=== PATIENT | male | born 1955 | race Caucasian/White ===

== ENCOUNTER → 2016-12-30 | Outpatient (CLI) | payer BC ==
[~2016-12-30] MED LIST: ASPI-983 PO; ATOR80TA76 PO; CLOP75TA28 PO; MELO-170 PO; METO-270 PO; RT-ALBUINH IH
--- NOTE | 2017-01-01 09:52 | ECHOCARDIOGRAPHY REPORT ---
PROCEDURE PHYSICIAN: PATRICIA COLON DATE OF PROCEDURE: 12/30/2016 TWO DIMENSIONAL ECHOCARDIOGRAM REPORT PRIMARY PHYSICIAN: Dr. Jon Mon OTHER PHYSICIAN: REFERRING PHYSICIAN: ORDERING PHYSICIAN: ATTENDING PHYSICIAN: Dr. Hernesto Colon FAMILY PHYSICIAN: READING PHYSICIAN: INDICATION FOR THE PROCEDURE: Cardiomyopathy. MEASUREMENTS DERIVED VALUES LV DIAMETER (LAX) NORMALS NORMALS Diastolic (3.6-5.2) Eject. Fract. (60%+/-6%) Systolic (2.3-3.9) Diastolic Vol. % Shortening (0.22-0.42) Systolic Vol. Aortic Root IVS THICKNESS Diastolic (0.6-1.1) LVPW THICKNESS Diastolic (0.6-1.1) LA DIAMETER Systolic (2.1-3.7) FINDINGS: 1. This is a technically difficult study. 2. Sinus rhythm. 3. Left atrial dimensions are normal. 4. Left ventricular systolic function is preserved. LV EF is 50 to 55%. Moderate concentric LVH is noted with diastolic intraventricular septal diameter 1.6 cm. 5. There are no significant wall motion abnormalities. 6. Right heart size and function is normal. 7. There is no evidence of pericardial effusion. 8. Complete diastolic evaluation was not performed. 9. IVC is normal with IVC diameter 1.5 cm. VALVULAR STRUCTURE OF THE HEART: There is mild tricuspid regurgitation with RVSP of 7 mmHg. There is mild mitral regurgitation with trace aortic insufficiency. The aortic valve is mildly thickened; however, there is no significant aortic stenosis. CONCLUSION: 1. LV and RV size and function are within normal limits. 2. LVEF is 50%. 3. There is no significant valvular heart disease. 4. There is moderate concentric LVH. 5. Pulmonary pressures are normal. 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
== END ==
LOC: CARD 10:51
PROVIDERS: ATTEND Internal Medicine Interventional Cardiology
DX: J44.9 Chronic obstructive pulmonary disease, unspecified (principal); I25.5 Ischemic cardiomyopathy; I21.3 ST elevation (STEMI) myocardial infarction of unspecified site; Z72.0 Tobacco use
CPT/HCPCS: 93306

== ENCOUNTER → 2018-06-15 | Outpatient (CLI) | payer MEDICARE, OTHER ==
[~2018-06-15] MED LIST changes: -METO-270 PO; +METO-387 PO
[2018-06-15 11:53] LABS: BUN/CREATININE RATIO 18; CREATININE SERUM 0.84 MG/DL (0.60-1.30); GFR ESTIMATED > 60
[2018-06-15 11:55] LABS: ABG BASE EXCESS 3.3 MMOL/L (-2.5-2.5); ABG OXYGEN SATURATION 94 % (94-100); ABG PCO2 42 MMHG (35-45); ABG PH 7.42 (7.37-7.43); ABG PO2 66 MMHG (79-93)
[2018-06-15 11:56] LABS: ALLENS TEST POSITIVE; PATIENT TEMP 96.8; VENTILATOR NO
[2018-06-16 04:06] LABS: ALTERNARIA MOLD RAST <0.35 kU/L (<0.35); RAGWEED RAST 1.94 kU/L (0.00-0.34)
== END ==
LOC: RT 10:47
PROVIDERS: ATTEND Nurse Practitioner Family
DX: J30.2 Other seasonal allergic rhinitis (principal); J44.9 Chronic obstructive pulmonary disease, unspecified; R06.00 Dyspnea, unspecified; M79.89 Other specified soft tissue disorders; R09.02 Hypoxemia; R53.83 Other fatigue; Z72.0 Tobacco use
CPT/HCPCS: 36415; 36600; 82565; 82785; 82805; 84520; 86003

== ENCOUNTER → 2018-07-13 | Outpatient (CLI) | payer MEDICARE, OTHER ==
[~2018-07-13] MED LIST changes: +ALBU0.63 IH; +ATOR40TA70 PO; +CETI10TA17 PO; +FLUT1BLS3 IH; +FURO-124 PO; +IOHEXOL 350 MG/ML 150 ML (OMNIPAQUE 350) VIAL IV ONE; +LISI-556 PO; +METO-370 PO; +NS 250 ML (IVPB) BAG IV ONE; +POTA10TA10 PO
[2018-07-13 08:37] LABS: BUN/CREATININE RATIO 18; CREATININE SERUM 0.93 MG/DL (0.60-1.30); GFR ESTIMATED > 60
--- NOTE | 2018-07-13 09:54 | Diagnostic Imaging Report ---
PROCEDURE: CT angiography of the chest with contrast. TECHNIQUE: Multiple contiguous axial images were obtained through the chest after uneventful bolus administration of intravenous contrast. 2D reconstructed CTA MIP acquisitions were also performed. INDICATION: COPD, leg swelling, and shortness of breath. COMPARISON: No prior studies are available for comparison. FINDINGS: Evaluation of the pulmonary arterial system is without evidence of thromboembolism. No filling defects are seen within central, lobar, or segmental branches. The thoracic aorta is of normal caliber. No dissection is seen. No pericardial or pleural fluid is identified. No axillary lymphadenopathy is seen. There are some mildly prominent lymph nodes in the mediastinum. An AP window node measures 18 mm x 10 mm. A precarinal node measures 14 mm x 15 mm. Mildly prominent lymph nodes in the hong bilaterally are noted. Parenchymal evaluation does show emphysematous changes throughout both lungs with hyperinflation. There is a spiculated masslike density in the left lung apex extending to the lateral pleural surface. There is some associated pleural thickening at this location. This spiculated density measures approximately 5 cm transverse x 2.9 cm AP. There is some associated interstitial change in a subpleural location more inferiorly in the left upper lobe. No other parenchymal mass is identified. No underlying bony destructive changes are seen. The upper abdomen is without evidence of an adrenal mass. There is a low density in the upper pole of the left kidney, suggestive of a cyst. IMPRESSION: 1. No evidence of pulmonary embolism or thoracic aortic dissection. 2. Spiculated left apical mass, suspicious for neoplasm. There are also mildly prominent lymph nodes in the mediastinum and hong. Metastatic disease cannot be entirely excluded. Further evaluation with a PET/CT is recommended. Dictated by: Dictated on workstation # [id number]
[2018-07-14 03:56] LABS: ALTERNARIA MOLD RAST <0.35 kU/L (<0.35); RAGWEED RAST 1.75 kU/L (0.00-0.34)
== END ==
LOC: RAD 08:03
PROVIDERS: ATTEND Nurse Practitioner Family
DX: J44.9 Chronic obstructive pulmonary disease, unspecified (principal); M79.89 Other specified soft tissue disorders; J30.2 Other seasonal allergic rhinitis; Z72.0 Tobacco use
CPT/HCPCS: 36415; 71275; 82565; 82785; 84520; 86003

== ENCOUNTER 2018-07-14 06:43 | Outpatient (CLI) | payer MEDICARE, OTHER ==
[~2018-07-14] VITALS: Ht 185.4 cm; Wt 83.0 kg
[~2018-07-14 06:43] MED LIST changes: -ALBU0.63 IH; -ATOR40TA70 PO; -CETI10TA17 PO; -FLUT1BLS3 IH; -FURO-124 PO; -LISI-556 PO; -METO-370 PO; -POTA10TA10 PO
[2018-07-14] MEDS ORDERED: LISI-556 PO (12:50)
[2018-07-14] MEDS ORDERED: ALBU0.63 IH (12:50)
[2018-07-14] MEDS ORDERED: METO-370 PO (12:50)
[2018-07-14] MEDS ORDERED: POTA10TA10 PO (12:50)
[2018-07-14] MEDS ORDERED: FURO-124 PO (12:50)
[2018-07-14] MEDS ORDERED: CETI10TA17 PO (12:50)
[2018-07-14] MEDS ORDERED: FLUT1BLS3 IH (12:50)
[2018-07-14] MEDS ORDERED: ATOR40TA70 PO (12:50)
== END 2018-07-14 12:51 | disposition home or self-care (01) ==
LOC: PREOP 06:43
PROVIDERS: ATTEND Internal Medicine Critical Care Medicine
DX: Z01.818 Encounter for other preprocedural examination (principal)

== ENCOUNTER → 2018-07-14 | Outpatient (CLI) | payer MEDICARE, OTHER ==
[~2018-07-14] MED LIST changes: -IOHEXOL 350 MG/ML 150 ML (OMNIPAQUE 350) VIAL IV ONE; -NS 250 ML (IVPB) BAG IV ONE
--- NOTE | 2018-07-14 14:38 | Diagnostic Imaging Report ---
INDICATION: Left upper lobe mass. TECHNIQUE: Serum blood glucose level at time of injection was 94 mg/dL. Patient was administered 11.3 mCi F-18 FDG intravenously in the right antecubital location and PET imaging from the top of the skull to the mid thighs was performed. In addition, noncontrast CT was performed for attenuation correction and anatomic correlation. COMPARISON: Comparison is made with recent CT chest from 07/13/2018. No prior PET studies available for comparison. FINDINGS: There is symmetric activity throughout the brain. Soft tissues of the neck are unremarkable. There is a intensely hypermetabolic mass involving the left upper lobe corresponding to the spiculated mass noted on recent CT. SUV max is 12. There appears to be adjacent pleural thickening adjacent to the mass and slightly inferior to the mass in the lateral chest wall pleura which also shows some hypermetabolism with SUV max of approximately 5. Slightly hypermetabolic nodes in the left hilum are seen with SUV max approximately 4. Intermediate level lymph node in the right hilum demonstrates SUV max of 2.5. Slightly hypermetabolic nodes in the AP window are also noted, showing greater activity than background mediastinal structures, SUV max of 2.5-3. Normal physiologic activity within the abdomen and pelvis is seen. No other regions of hypermetabolism are identified. IMPRESSION: Hypermetabolic mass in the left upper lobe with adjacent pleural thickening and pleural hypermetabolism. Features are suggestive of a primary lung neoplasm with perhaps pleural involvement. There is also lower level activity within bilateral hilar and mediastinal lymph nodes, as described and suspicious for metastatic involvement. No other foci of hypermetabolism are seen. Dictated by: Dictated on workstation # [id number]
== END ==
LOC: RAD 10:01
PROVIDERS: ATTEND Internal Medicine Critical Care Medicine
DX: R91.8 Other nonspecific abnormal finding of lung field (principal); R94.8 Abnormal results of function studies of other organs and systems; R59.0 Localized enlarged lymph nodes

== ENCOUNTER 2018-07-15 06:50 | Day surgery (SDC) | payer MEDICARE, OTHER ==
[~2018-07-15] VITALS: Ht 185.4 cm; Wt 83.0 kg
[~2018-07-15 06:50] MED LIST changes: +ALBU0.63 IH; +ATOR40TA70 PO; +CETI10TA17 PO; +FLUT1BLS3 IH; +FURO-124 PO; +LISI-556 PO; +METO-370 PO; +POTA10TA10 PO
[2018-07-15] MEDS ORDERED: LIDOCAINE PF 1% 5 ML (XYLOCAINE) AMP INJ ONE (06:51)
[2018-07-15] MEDS ORDERED: LIDOCAINE PF 2% 5 ML (XYLOCAINE) VIAL INJ ONE (06:51)
[2018-07-15] MEDS ORDERED: LACTATED RINGERS 1,000 ML IV STA (06:53)
--- OUTSIDE RECORDS SUMMARY | 2018-07-15 06:56 | XMS REPORT ---
Author Author ALIRIO COELLO [facility] Address [address] [place], [place] [id number] Care Team Providers Care Stock Puller Name Role Phone ALIRIO COELLO PCP ALIRIO COELLO PreferredProvider Allergies and Adverse Reactions Not available. Plan of Treatment Planned Activity Comments Planned Date Planned Time Plan/Goal Injection,Subcutaneous/Intramuscul, R[facility] Medicare 01/26/2018 12:00 AM Medications Active Name Start Date Estimated Completion Date SIG Comments aspirin 81 mg oral tablet,chewable chew 1 tablet (81 mg) by oral route once daily atorvastatin 80 mg oral tablet take 1 tablet (80 mg) by oral route once daily at bedtime clopidogrel 75 mg oral tablet take 1 tablet (75 mg) by oral route once daily metoprolol succinate 25 mg oral tablet extended release 24 hr take 1 tablet (25 mg) by oral route once daily albuterol sulfate oral meloxicam 7.5 mg oral tablet Symbicort 160-4.5 mcg/actuation inhalation HFA aerosol inhaler 11/22/2016 inhale 2 puffs by inhalation route 2 times per day in the morning and evening Medrol (Vel) 4 mg oral tablets,dose pack 12/11/2017 take as directed for 5 days fluticasone 50 mcg/actuation nasal spray,suspension 01/26/2018 USE ONE SPRAY IN EACH NOSTRIL TWICE DAILY Bevespi Aerosphere 9-4.8 mcg inhalation HFA aerosol inhaler 01/27/2018 inhale 2 puffs by inhalation route 2 times per day in the morning and evening Name Start Date Expiration Date SIG Comments Symbicort 160-4.5 mcg/actuation inhalation HFA aerosol inhaler 10/08/201710/08 INHALE TWO PUFFS BY MOUTH TWICE DAILY (MORNING AND EVENING) ProAir HFA 90 mcg/actuation inhalation HFA aerosol inhaler 12/01/2017 12/01/2017 INHALE ONE PUFF BY MOUTH EVERY 6 HOURS NEEDED Problem List Description Status Onset Smoker Active 10/07/2016 Hypercholesterolemia Active 10/07/2016 CAD S/P percutaneous coronary angioplasty Active 10/07/2016 Chronic obstructive pulmonary disease, unspecified COPD type Active 2016 History of MS (myocardial infarction) Active 10/07/2016 Seasonal allergic rhinitis, unspecified allergic rhinitis trigger Active Vital Signs Date Time BP-Sys(mm[Hg] BP-Paradise(mm[Hg]) HR(bpm) RR(rpm) Temp WT HT HC BMI BSA BMI Percentile O2 Sat(%) 01/26/2018 10:58:00 AM 130 mmHg 72 mmHg 82 bpm 20 rpm 96 F 181 lbs 73 in 23.8798 kg/m 2.0564 m 98 % 12/11/2017 2:40:00 PM 146 mmHg 80 mmHg 86 bpm 18 rpm 98.1 F 181 lbs 73 in 23.88 kg/m2 2.06 m2 94 % 10/23/2017 1:44:00 PM 148 mmHg 82 mmHg 82 bpm 18 rpm 96.9 F 178 lbs 73 in 23.484 kg/m 2.0393 m 98 % 11/28/2016 12:50:00 PM 118 mmHg 65 mmHg 78 bpm 18 rpm 96.9 F 177 lbs 74 in 22.73 kg/m2 2.05 m2 98 % 10/01/2016 11:58:00 AM 110 mmHg 66 mmHg 88 bpm 16 rpm 97.6 F 181 lbs 74 in 23.2388 kg/m 2.0704 m 98 % Social History Name Description Comments smoking 1/2 pack per day Alcohol Current some day Uses seatbelts yes Exercises regularly no History of Procedures Date Ordered Description Order Status 11/28/2016 12:00 AM COMPLETE CBC W/AUTO DIFF WBC Returned 11/28/2016 12:00 AM COMPREHEN METABOLIC PANEL Returned 11/28/2016 12:00 AM LIPID PANEL Returned 11/28/2016 12:00 AM Prostate Cancer Screening Returned 11/28/2016 12:00 AM ROUTINE VENIPUNCTURE Reviewed 11/28/2016 12:00 AM Decadron 8mg Injection Reviewed 11/28/2016 12:00 AM Depo-Medrol 80mg Injection Reviewed 11/28/2016 12:00 AM THER/PROPH/DIAG INJ SC/IM Reviewed 10/23/2017 12:00 AM COMPLETE CBC W/AUTO DIFF WBC Returned 10/23/2017 12:00 AM COMPREHEN METABOLIC PANEL Returned 10/23/2017 12:00 AM LIPID PANEL Returned 10/23/2017 12:00 AM ROUTINE VENIPUNCTURE Reviewed 10/23/2017 12:00 AM THER/PROPH/DIAG INJ SC/IM Reviewed 10/23/2017 12:00 AM Decadron 8mg Injection Reviewed 10/23/2017 12:00 AM Depo-Medrol 80mg Injection Reviewed 10/23/2017 12:00 AM Rocephin 1 gram Injection Reviewed 12/11/2017 12:00 AM THER/PROPH/DIAG INJ SC/IM Reviewed 12/11/2017 12:00 AM Decadron 8mg Injection Reviewed 12/11/2017 12:00 AM Depo-Medrol 80mg Injection Reviewed Results Summary Not available. History Of Immunizations Not available. History of Past Illness Name Date of Onset Comments Heart Attack Hay Fever Arthritis Chronic Obstructive Pulmonary Disease Emphysema Smoker 10/07/2016 Hypercholesterolemia 10/07/2016 CAD S/P percutaneous coronary angioplasty 10/07/2016 Chronic obstructive pulmonary disease, unspecified COPD type 10/07/2016 History of MS (myocardial infarction) 10/07/2016 Seasonal allergic rhinitis, unspecified allergic rhinitis trigger 12/09/2016 Chronic obstructive pulmonary disease, unspecified COPD type Oct 01 2016 11: 59AM Atherosclerotic heart disease of [place] coronary artery without angina pectoris Oct 01 2016 11:59AM Coronary angioplasty status Oct 01 2016 11:59AM Hypercholesterolemia Oct 01 2016 11:59AM Chronic Smoker Oct 01 2016 11:59AM History of MS (myocardial infarction) Oct 01 2016 11:59AM History of MS (myocardial infarction) Nov 28 2016 9:51AM Hypercholesterolemia Nov 28 2016 9:51AM Smoker Nov 28 2016 9:51AM Prostate cancer screening Nov 28 2016 9:51AM Seasonal allergic rhinitis, unspecified allergic rhinitis trigger Nov 28 2016 12:51PM Smoker Nov 28 2016 12:51PM Atherosclerotic heart disease of [place] coronary artery without angina pectoris Nov 28 2016 12:51PM Coronary angioplasty status Nov 28 2016 12:51PM Chronic obstructive pulmonary disease, unspecified COPD type Nov 28 2016 12: 51PM History of MS (myocardial infarction) Nov 28 2016 12:51PM Moderate Acute Nasal congestion with rhinorrhea Nov 28 2016 12:51PM History of MS (myocardial infarction) Oct 23 2017 9:47AM Hypercholesterolemia Oct 23 2017 9:47AM Smoker Oct 23 2017 9:47AM Purulent postnasal drainage Oct 23 2017 1:44PM Chest congestion Oct 23 2017 1:44PM Upper respiratory tract infection, unspecified type Oct 23 2017 1:44PM Sinus pressure Oct 23 2017 1:44PM Chest congestion Dec 11 2017 2:40PM Sinus pressure Dec 11 2017 2:40PM Seasonal allergic rhinitis, unspecified trigger Dec 11 2017 2:40PM Environmental and seasonal allergies Dec 11 2017 2:40PM Cough Jan 26 2018 10:58AM Purulent postnasal drainage Jan 26 2018 10:58AM Chest congestion Jan 26 2018 10:58AM Acute seasonal allergic rhinitis, unspecified trigger Jan 26 2018 10:58AM Pulmonary emphysema, unspecified emphysema type Jan 26 2018 10:58AM Payers Insurance Name Company Name Plan Name Plan Number Policy Number Policy Group Number [id number] History of Encounters Visit Date Visit Type Provider 01/26/2018 Office visit ALIRIO ZUNIGA 12/11/2017 Office visit ALIRIO ZUNIGA 10/23/2017 Office visit ALIRIO ZUNIGA 11/28/2016 Office visit ALIRIO ZUNIGA 10/01/2016 Office visit ALIRIO ZUNIGA
--- OUTSIDE RECORDS SUMMARY | 2018-07-15 06:56 | XMS REPORT ---
Author Author ALIRIO COELLO [facility] Address [address] [facility] [address] [place], [place] [id number] Care Team Providers Care Senior Web Engineer Name Role Phone ALIRIO COELLO PCP Unavailable Allergies and Adverse Reactions Not available. Plan of Treatment Planned Activity Comments Planned Date Planned Time Plan/Goal CBC with Differential 11/28/2016 12:00 AM CMP 11/28/2016 12:00 AM .Lipid Panel 11/28/2016 12:00 AM Medications Active Name Start Date [...] per day in the morning and evening ProAir HFA 90 mcg/actuation inhalation HFA aerosol inhaler 11/22/2016 inhale 1 puff (90 mcg) by inhalation route every 6 hours as needed Problem List Description Status Onset Smoker Active 10/07/2016 Hypercholesterolemia Active 10/07/2016 CAD S/P percutaneous coronary angioplasty Active 10/07/2016 Chronic obstructive pulmonary disease, unspecified COPD type Active 2016 History of MS (myocardial infarction) Active 10/07/2016 Vital Signs Date Time BP-Sys(mm[Hg] BP-Paradise(mm[Hg]) HR(bpm) RR(rpm) Temp WT HT HC BMI BSA BMI Percentile O2 Sat(%) 10/01/2016 11:58:00 AM 110 mmHg 66 mmHg 88 bpm 16 rpm 97.6 F 181 lbs 74 in 23.24 kg/m2 2.07 m2 98 % Social History Name Description Comments smoking 1/2 pack per day Alcohol Current some day Uses seatbelts yes Exercises regularly no History of Procedures Date Ordered Description Order Status 11/28/2016 12:00 AM ROUTINE VENIPUNCTURE Reviewed Results Summary Not available. History Of Immunizations Not available. History of Past Illness Name Date of Onset Comments Heart Attack Hay Fever Arthritis Chronic Obstructive Pulmonary Disease Emphysema Smoker 10/07/2016 Hypercholesterolemia 10/07/2016 CAD S/P percutaneous coronary angioplasty 10/07/2016 Chronic obstructive pulmonary disease, unspecified COPD type 10/07/2016 History of MS (myocardial infarction) 10/07/2016 Chronic obstructive pulmonary disease, unspecified COPD type Oct 01 2016 11: 59AM Atherosclerotic heart disease of [place] coronary artery without angina pectoris Oct 01 2016 11:59AM Coronary angioplasty status Oct 01 2016 11:59AM Hypercholesterolemia Oct 01 2016 11:59AM Chronic Smoker Oct 01 2016 11:59AM History of MS (myocardial infarction) Oct 01 2016 11:59AM History of MS (myocardial infarction) Nov 28 2016 9:51AM Hypercholesterolemia Nov 28 2016 9:51AM Smoker Nov 28 2016 9:51AM Prostate cancer screening Nov 28 2016 9:51AM Payers Insurance Name Company Name Plan Name Plan Number Policy Number Policy Group Number [id number] History of Encounters Visit Date Visit Type Provider 11/28/2016 Office visit ALIRIO ZUNIGA 10/01/2016 Office visit ALIRIO ZUNIGA
--- OUTSIDE RECORDS SUMMARY | 2018-07-15 06:56 | XMS REPORT ---
Author Author ALIRIO COELLO [facility] Address [address] [place], [place] [id number] Care Team Providers Care Supervisor [employer] Name Role Phone ALIRIO COELLO PCP ALIRIO COELLO PreferredProvider Allergies and Adverse Reactions Not available. Plan of Treatment Not available. Medications Active Name Start Date Estimated Completion [...] (25 mg) by oral route once daily meloxicam 7.5 mg oral tablet Symbicort 160-4.5 mcg/actuation inhalation HFA aerosol inhaler 11/22/2016 inhale 2 puffs by inhalation route 2 times per day in the morning and evening fluticasone 50 mcg/actuation nasal spray,suspension 01/26/2018 USE ONE SPRAY IN EACH NOSTRIL TWICE DAILY Bevespi Aerosphere 9-4.8 mcg inhalation HFA aerosol inhaler 01/27/2018 inhale 2 puffs by inhalation route 2 times per day in the morning and evening Medrol (Vel) 4 mg oral tablets,dose pack 02/16/2018 take as directed for 5 days furosemide 40 mg oral tablet 03/16/2018 06/14/2018 take 1 tablet (40 mg) by oral route 2 times per day for 30 days Ventolin HFA 90 mcg/actuation inhalation HFA aerosol inhaler 04/08/2018 inhale 1 - 2 puffs (90 - 180 mcg) by inhalation route every 4-6 hours as needed Singulair 10 mg oral tablet 04/13/2018 04/08/2019 take 1 tablet (10 mg) by oral route once daily in the evening for 30 days albuterol sulfate 2.5 mg /3 mL (0.083 %) inhalation solution for nebulization 04/29/2018 USE 1 VIAL IN NEBULIZER 4 TIMES DAILY DX J44.9 Bactrim DS 800-160 mg oral tablet 05/11/2018 05/21/2018 take 1 tablet by oral route 2 times a day for 10 days Name Start Date Expiration Date SIG Comments Symbicort 160-4.5 mcg/actuation inhalation HFA aerosol inhaler 10/08/201710/08 INHALE TWO PUFFS BY MOUTH TWICE DAILY (MORNING AND EVENING) ProAir HFA 90 mcg/actuation inhalation HFA aerosol inhaler 12/01/2017 12/01/2017 INHALE ONE PUFF BY MOUTH EVERY 6 HOURS NEEDED potassium chloride 10 mEq oral tablet extended release 03/29/2018 04/28/2018 take 1 tablet (10 meq) by oral route once daily with food for 30 days He is to utilize this when he takes the diuretics Discontinued Name Start Date Discontinued Date SIG Comments albuterol sulfate oral 02/25/2018 Problem List Description Status Onset Smoker Active 10/07/2016 Hypercholesterolemia Active 10/07/2016 CAD S/P percutaneous coronary angioplasty Active 10/07/2016 Chronic obstructive pulmonary disease, unspecified COPD type Active 2016 History of [place] (myocardial infarction) Active 10/07/2016 Seasonal allergic rhinitis, unspecified allergic rhinitis trigger Active Hypoxemia requiring supplemental oxygen Active 02/19/2018 Congestive heart failure, unspecified HF chronicity, unspecified heart failure type Active 03/29/2018 Vital Signs Date Time BP-Sys(mm[Hg] BP-Paradise(mm[Hg]) HR(bpm) RR(rpm) Temp WT HT HC BMI BSA BMI Percentile O2 Sat(%) 05/11/2018 3:58:00 PM 118 mmHg 70 mmHg 90 bpm 18 rpm 98.4 F 180 lbs 72 in 24.4121 kg/m 2.0366 m 94 % 04/13/2018 9:59:00 AM 118 mmHg 64 mmHg 80 bpm 18 rpm 97.4 F 180 lbs 73 in 23.75 kg/m2 2.05 m2 98 % 03/23/2018 7:59:00 AM 120 mmHg 68 mmHg 18 bpm 16 rpm 98.1 F 200 lbs 73 in 26.3865 kg/m 2.1616 m 98 % 03/16/2018 8:53:00 AM 142 mmHg 76 mmHg 86 bpm 20 rpm 98.4 F 186 lbs 72 in 25.23 kg/m2 2.07 m2 92 % 02/18/2018 8:26:00 AM 130 mmHg 84 mmHg 78 bpm 18 rpm 98.1 F 191 lbs 72 in 25.904 kg/m 2.0979 m 94 % 02/16/2018 8:50:00 AM 190 mmHg 100 mmHg 114 bpm 22 rpm 98.4 F 160 lbs 72 in 21.70 kg/m2 1.92 m2 84 % 01/26/2018 10:58:00 AM 130 mmHg 72 mmHg [...] 12/11/2017 12:00 AM Depo-Medrol 80mg Injection Reviewed 01/26/2018 12:00 AM THERAPEUTIC PROPHYLACTIC/DX INJECTION SUBQ/IM Reviewed 01/26/2018 12:00 AM Decadron 8mg Injection, [facility] Medicare Reviewed 01/26/2018 12:00 AM Depo-Medrol 80mg Injection, [facility] Medicare Reviewed 02/16/2018 12:00 AM THER/PROPH/DIAG INJ SC/IM Reviewed 02/16/2018 12:00 AM Decadron 8mg Injection Reviewed 02/18/2018 12:00 AM TTE W/DOPPLER COMPLETE Returned 03/23/2018 12:00 AM COMPLETE CBC W/AUTO DIFF WBC Returned 03/23/2018 12:00 AM COMPREHEN METABOLIC PANEL Returned 03/23/2018 12:00 AM LIPID PANEL Returned 03/23/2018 12:00 AM Prostate Cancer Screening Returned 03/23/2018 12:00 AM ROUTINE VENIPUNCTURE Reviewed 03/16/2018 12:00 AM THER/PROPH/DIAG INJ SC/IM Reviewed 03/16/2018 12:00 AM Decadron 8mg Injection Reviewed 03/16/2018 12:00 AM Depo-Medrol 80mg Injection Reviewed 03/16/2018 12:00 AM Lasix, Up to 20 Mg [facility]#[id number] Reviewed Results Summary Not available. History Of Immunizations Not available. History of Past Illness Name Date of Onset Comments Heart Attack Hay Fever Arthritis Chronic Obstructive Pulmonary Disease Emphysema Smoker 10/07/2016 Hypercholesterolemia 10/07/2016 CAD S/P percutaneous coronary angioplasty 10/07/2016 Chronic obstructive pulmonary disease, unspecified COPD type 10/07/2016 History of [place] (myocardial infarction) 10/07/2016 Seasonal allergic rhinitis, unspecified allergic rhinitis trigger 12/09/2016 Hypoxemia requiring supplemental oxygen 02/19/2018 Congestive heart failure, unspecified HF chronicity, unspecified heart failure type 03/29/2018 Chronic obstructive pulmonary disease, unspecified COPD type Oct 01 2016 11: 59AM Atherosclerotic heart disease of [place] coronary artery without angina pectoris Oct 01 2016 11:59AM Coronary angioplasty status Oct 01 2016 11:59AM Hypercholesterolemia Oct 01 2016 11:59AM Chronic Smoker Oct 01 2016 11:59AM History of [place] (myocardial infarction) Oct 01 2016 11:59AM History of [place] (myocardial infarction) Nov 28 2016 9:51AM Hypercholesterolemia Nov 28 2016 9:51AM Smoker Nov 28 2016 9:51AM Prostate cancer screening Nov 28 2016 9:51AM Seasonal allergic rhinitis, unspecified allergic rhinitis trigger Nov 28 2016 12:51PM Smoker Nov 28 2016 12:51PM Atherosclerotic heart disease of [place] coronary artery without angina pectoris Nov 28 2016 12:51PM Coronary angioplasty status Nov 28 2016 12:51PM Chronic obstructive pulmonary disease, unspecified COPD type Nov 28 2016 12: 51PM History of [place] (myocardial infarction) Nov 28 2016 12:51PM Moderate Acute Nasal congestion with rhinorrhea Nov 28 2016 12:51PM History of [place] (myocardial infarction) Oct 23 2017 9:47AM Hypercholesterolemia [...] unspecified emphysema type Jan 26 2018 10:58AM Hypoxemia Feb 16 2018 8:51AM Dependence on supplemental oxygen Feb 16 2018 8:51AM COPD exacerbation Feb 16 2018 8:51AM History of [place] (myocardial infarction) Feb 16 2018 8:51AM Seasonal allergic rhinitis, unspecified allergic rhinitis trigger Feb 16 2018 8:51AM Smoker Feb 16 2018 8:51AM Orthopnea Feb 16 2018 8:51AM COPD (chronic obstructive pulmonary disease) Feb 18 2018 8:41AM History of [place] (myocardial infarction) Feb 18 2018 8:41AM COPD (chronic obstructive pulmonary disease) Feb 18 2018 8:26AM Chronic obstructive pulmonary disease, unspecified COPD type Feb 18 2018 8: 26AM History of [place] (myocardial infarction) Feb 18 2018 8:26AM Smoker Feb 18 2018 8:26AM Hypoxemia Feb 18 2018 8:26AM Dependence on supplemental oxygen Feb 18 2018 8:26AM Severe Acute SOB (shortness of breath) on exertion Improving Feb 18 2018 8: 26AM History of [place] (myocardial infarction) Mar 23 2018 8:28AM Hypercholesterolemia Mar 23 2018 8:28AM Smoker Mar 23 2018 8:28AM Prostate cancer screening Mar 23 2018 8:28AM Severe Acute Muscle cramps at night Mar 23 2018 8:04AM Atherosclerotic heart disease of [place] coronary artery without angina pectoris Mar 23 2018 8:04AM Coronary angioplasty status Mar 23 2018 8:04AM Chronic obstructive pulmonary disease, unspecified COPD type Mar 23 2018 8: 04AM History of [place] (myocardial infarction) Mar 23 2018 8:04AM Hypoxemia Mar 23 2018 8:04AM Dependence on supplemental oxygen Mar 23 2018 8:04AM Smoker Mar 23 2018 8:04AM Moderate Peripheral edema Stable Worsening Mar 23 2018 8:04AM Diuretics causing adverse effect in therapeutic use, initial encounter Mar 23 2018 8:04AM Severe Chronic Shortness of breath on exertion Unresponsive to treatment Mar 23 2018 8:04AM Chronic obstructive pulmonary disease, unspecified COPD type Mar 16 2018 8: 54AM Hypoxemia Mar 16 2018 8:54AM Dependence on supplemental oxygen Mar 16 2018 8:54AM Smoker Mar 16 2018 8:54AM Peripheral edema Mar 16 2018 8:54AM Congestive heart failure, unspecified HF chronicity, unspecified heart failure type Mar 16 2018 8:54AM Seasonal allergic rhinitis, unspecified trigger Apr 13 2018 10:00AM Cellulitis of external nose May 11 2018 3:59PM Payers Insurance Name Company Name Plan Name Plan Number Policy Number Policy Group Number Start Date Medicare RHC Medicare RHC [id number] N/A Medicare Part A Medicare - Lab/Xray [id number] N/A BCBS [facility] [id number] N/A History of Encounters Visit Date Visit Type Provider 05/11/2018 Office visit ALIRIO COELLO PA 04/13/2018 Office visit ALIRIO COELLO PA 03/23/2018 Office visit ALIRIO COELLO PA 03/16/2018 Office visit ALIRIO COELLO PA 02/18/2018 Office visit ALIRIO COELLO PA 02/16/2018 Office visit ALIRIO COELLO PA 01/26/2018 Office visit ALIRIO COELLO PA 12/11/2017 Office visit ALIRIO COELLO PA 10/23/2017 Office visit ALIRIO ZUNIGA 11/28/2016 Office visit ALIRIO COELLO PA 10/01/2016 Office visit ALIRIO ZUNIGA
--- OUTSIDE RECORDS SUMMARY | 2018-07-15 06:57 | XMS REPORT ---
Author Author ALIRIO COELLO [facility] Address [address] [place], [place] [id number] Care Team Providers Care Screener Perfumer Name Role Phone ALIRIO COELLO PCP ALIRIO COELLO PreferredProvider Allergies and Adverse Reactions Not available. Plan of Treatment Planned Activity Comments Planned Date Planned Time Plan/Goal ECHO 2D Complete - Adult 02/18/2018 12:00 AM Medications Active Name Start Date [...] per day in the morning and evening albuterol sulfate 2.5 mg /3 mL (0.083 %) inhalation solution for nebulization 02/16/2018 used in Small Volume Nebulizer QID PRN Medrol (Vel) 4 mg oral tablets,dose pack 02/16/2018 take as directed for 5 days Name Start Date Expiration Date SIG [...] unspecified COPD type Active 2016 History of [place] (myocardial infarction) Active 10/07/2016 Seasonal allergic rhinitis, unspecified allergic rhinitis trigger Active Vital Signs Date Time BP-Sys(mm[Hg] BP-Paradise(mm[Hg]) HR(bpm) RR(rpm) Temp WT HT HC BMI BSA BMI Percentile O2 Sat(%) 02/18/2018 8:26:00 AM 130 mmHg 84 mmHg [...] Reviewed 01/26/2018 12:00 AM Decadron 8mg Injection, [facility] Medicare Reviewed 01/26/2018 12:00 AM Depo-Medrol 80mg Injection, [facility] Medicare Reviewed 02/16/2018 12:00 AM THER/PROPH/DIAG INJ SC/IM Reviewed 02/16/2018 12:00 AM Decadron 8mg Injection Reviewed Results Summary Not available. History Of Immunizations Not available. History of Past Illness Name Date of Onset Comments Heart Attack Hay Fever Arthritis Chronic Obstructive Pulmonary Disease Emphysema Smoker 10/07/2016 Hypercholesterolemia 10/07/2016 CAD S/P percutaneous coronary angioplasty 10/07/2016 Chronic obstructive pulmonary disease, unspecified COPD type 10/07/2016 History of [place] (myocardial infarction) 10/07/2016 Seasonal allergic rhinitis, unspecified allergic rhinitis trigger 12/09/2016 Chronic obstructive pulmonary disease, unspecified COPD type Oct 01 2016 11: 59AM Atherosclerotic heart disease of [place] coronary artery without angina pectoris Oct 01 2016 11:59AM Coronary angioplasty status Oct 01 2016 11:59AM Hypercholesterolemia Oct 01 2016 11:59AM Chronic Smoker Oct 01 2016 11:59AM History of [place] (myocardial infarction) Oct 01 2016 11:59AM History of [place] (myocardial infarction) Nov 28 2016 9:51AM Hypercholesterolemia Nov 28 2016 9:51AM Smoker Nov 28 2016 9:51AM Prostate cancer screening Nov 28 2016 9:51AM Seasonal allergic rhinitis, unspecified allergic rhinitis trigger Nov 28 2016 12:51PM Smoker Nov 28 2016 12:51PM Atherosclerotic heart disease of [place] coronary artery without angina pectoris Nov 28 2016 12:51PM Coronary angioplasty status Nov 28 2016 12:51PM Chronic obstructive pulmonary disease, unspecified COPD type Nov 28 2016 12: 51PM History of [place] (myocardial infarction) Nov 28 2016 12:51PM Moderate Acute Nasal congestion with rhinorrhea Nov 28 2016 12:51PM History of [place] (myocardial infarction) Oct 23 2017 9:47AM Hypercholesterolemia [...] exacerbation Feb 16 2018 8:51AM History of [place] (myocardial infarction) Feb 16 2018 8:51AM Seasonal allergic rhinitis, unspecified allergic rhinitis trigger Feb 16 2018 8:51AM Smoker Feb 16 2018 8:51AM Orthopnea Feb 16 2018 8:51AM COPD (chronic obstructive pulmonary disease) Feb 18 2018 8:41AM History of [place] (myocardial infarction) Feb 18 2018 8:41AM Payers Insurance Name Company Name Plan Name Plan Number Policy Number Policy Group Number [id number] History of Encounters Visit Date Visit Type Provider 02/18/2018 Office visit ALIRIO ZUNIGA 02/16/2018 Office visit ALIRIO ZUNIGA 01/26/2018 Office visit ALIRIO ZUNIGA 12/11/2017 Office visit ALIRIO ZUNIGA 10/23/2017 Office visit ALIRIO ZUNIGA 11/28/2016 Office visit ALIRIO ZUNIGA 10/01/2016 Office visit ALIRIO ZUNIGA
--- OUTSIDE RECORDS SUMMARY | 2018-07-15 06:57 | XMS REPORT ---
Author Author ALIRIO COELOL [facility] Address [address] [place], [place] [id number] Care Team Providers Care Costume Seamstress Name Role Phone ALIRIO COELLO PCP ALIRIO COELLO PreferredProvider Allergies and Adverse Reactions Not available. Plan of Treatment Planned Activity Comments Planned Date Planned Time Plan/Goal CBC with Differential 10/23/2017 12:00 AM CMP 10/23/2017 12:00 AM .Lipid Panel 10/23/2017 12:00 AM Medications Active Name Start Date [...] and evening fluticasone 50 mcg/actuation nasal spray,suspension 04/22/2017 inhale 1 spray (50 mcg) in each nostril by intranasal route 2 times per day ProAir HFA 90 mcg/actuation inhalation HFA aerosol inhaler 06/09/20172017 INHALE ONE PUFF BY MOUTH EVERY 6 HOURS NEEDED Name Start Date Expiration Date SIG Comments Symbicort 160-4.5 mcg/actuation inhalation HFA aerosol inhaler 10/08/201710/08 INHALE TWO PUFFS BY MOUTH TWICE DAILY (MORNING AND EVENING) Problem List Description Status Onset Smoker Active 10/07/2016 Hypercholesterolemia Active 10/07/2016 CAD S/P percutaneous coronary angioplasty Active 10/07/2016 Chronic obstructive pulmonary disease, unspecified COPD type Active 2016 History of [place] (myocardial infarction) Active 10/07/2016 Seasonal allergic rhinitis, unspecified allergic rhinitis trigger Active Vital Signs Date Time BP-Sys(mm[Hg] BP-Paradise(mm[Hg]) HR(bpm) RR(rpm) Temp WT HT HC BMI BSA BMI Percentile O2 Sat(%) 11/28/2016 12:50:00 PM 118 mmHg 65 mmHg [...] THER/PROPH/DIAG INJ SC/IM Reviewed 10/23/2017 12:00 AM ROUTINE VENIPUNCTURE Reviewed Results Summary Not available. History Of Immunizations Not available. History of Past Illness Name Date of Onset Comments Heart Attack Hay Fever Arthritis Chronic Obstructive Pulmonary Disease Emphysema Smoker 10/07/2016 Hypercholesterolemia 10/07/2016 CAD S/P percutaneous coronary angioplasty 10/07/2016 Chronic obstructive pulmonary disease, unspecified COPD type 10/07/2016 History of [place] (myocardial infarction) 10/07/2016 Seasonal allergic rhinitis, unspecified allergic rhinitis trigger 12/09/2016 Chronic obstructive pulmonary disease, unspecified COPD type Oct 01 2016 11: 59AM Atherosclerotic heart disease of [place] coronary artery without angina pectoris Oct 01 2016 11:59AM Coronary angioplasty status Oct 01 2016 11:59AM Hypercholesterolemia Oct 01 2016 11:59AM Chronic Smoker Oct 01 2016 11:59AM History of [place] (myocardial infarction) Oct 01 2016 11:59AM History of [place] (myocardial infarction) Nov 28 2016 9:51AM Hypercholesterolemia Nov 28 2016 9:51AM Smoker Nov 28 2016 9:51AM Prostate cancer screening Nov 28 2016 9:51AM Seasonal allergic rhinitis, unspecified allergic rhinitis trigger Nov 28 2016 12:51PM Smoker Nov 28 2016 12:51PM Atherosclerotic heart disease of [place] coronary artery without angina pectoris Nov 28 2016 12:51PM Coronary angioplasty status Nov 28 2016 12:51PM Chronic obstructive pulmonary disease, unspecified COPD type Nov 28 2016 12: 51PM History of [place] (myocardial infarction) Nov 28 2016 12:51PM Moderate Acute Nasal congestion with rhinorrhea Nov 28 2016 12:51PM History of [place] (myocardial infarction) Oct 23 2017 9:47AM Hypercholesterolemia Oct 23 2017 9:47AM Smoker Oct 23 2017 9:47AM Payers Insurance Name Company Name Plan Name Plan Number Policy Number Policy Group Number Start Date BCBS [facility] [id number] N/A History of Encounters Visit Date Visit Type Provider 10/23/2017 Office visit ALIRIO ZUNIGA 11/28/2016 Office visit ALIRIO ZUNIGA 10/01/2016 Office visit ALIRIO ZUNIGA
--- OUTSIDE RECORDS SUMMARY | 2018-07-15 06:57 | XMS REPORT ---
Author Author ALIRIO COELLO [facility] Address [address] [place], [place] [id number] Care Team Providers Care Patch Driller Name Role Phone ALIRIO COELLO PCP Unavailable [...] sulfate oral meloxicam 7.5 mg oral tablet Problem List Description Status Onset Smoker Active 10/07/2016 Hypercholesterolemia Active 10/07/2016 CAD S/P percutaneous coronary angioplasty Active 10/07/2016 Chronic obstructive pulmonary disease, unspecified COPD type Active 2016 History of [place] (myocardial infarction) Active 10/07/2016 Vital Signs Date [...] yes Exercises regularly no History of Procedures Not available. Results Summary Not available. History Of Immunizations Not available. History of Past Illness Name Date of Onset Comments Heart Attack Hay Fever Arthritis Chronic Obstructive Pulmonary Disease Emphysema Smoker 10/07/2016 Hypercholesterolemia 10/07/2016 CAD S/P percutaneous coronary angioplasty 10/07/2016 Chronic obstructive pulmonary disease, unspecified COPD type 10/07/2016 History of [place] (myocardial infarction) 10/07/2016 Chronic obstructive pulmonary disease, unspecified COPD type Oct 01 2016 11: 59AM Atherosclerotic heart disease of [place] coronary artery without angina pectoris Oct 01 2016 11:59AM Coronary angioplasty status Oct 01 2016 11:59AM Hypercholesterolemia Oct 01 2016 11:59AM Chronic Smoker Oct 01 2016 11:59AM History of [place] (myocardial infarction) Oct 01 2016 11:59AM Payers Insurance Name Company Name Plan Name Plan Number Policy Number Policy Group Number Start Date [id number] History of Encounters Visit Date Visit Type Provider 10/01/2016 Office visit ALIRIO ZUNIGA
--- OUTSIDE RECORDS SUMMARY | 2018-07-15 06:57 | XMS REPORT ---
Author Author ALIRIO COELLO [facility] Address [address] [place], [place] [id number] Care Team Providers Care Feed Preparation Operator Name Role Phone ALIRIO COELLO PCP ALIRIO [...] unspecified COPD type Active 2016 History of [place] (myocardial infarction) Active 10/07/2016 Seasonal allergic rhinitis, unspecified allergic rhinitis trigger Active Hypoxemia requiring supplemental oxygen Active 02/19/2018 Vital Signs Date Time BP-Sys(mm[Hg] BP-Paradise(mm[Hg]) HR(bpm) [...] Reviewed 01/26/2018 12:00 AM Decadron 8mg Injection, [facility] Medicare Reviewed 01/26/2018 12:00 AM Depo-Medrol 80mg Injection, [facility] Medicare Reviewed 02/16/2018 12:00 AM THER/PROPH/DIAG INJ [...] disease, unspecified COPD type 10/07/2016 History of [place] (myocardial infarction) 10/07/2016 Seasonal allergic rhinitis, unspecified allergic rhinitis trigger 12/09/2016 Hypoxemia requiring supplemental oxygen 02/19/2018 Chronic obstructive pulmonary disease, unspecified COPD type Oct 01 2016 11: 59AM Atherosclerotic heart disease of [place] coronary artery without angina pectoris Oct 01 2016 11:59AM Coronary angioplasty status Oct 01 2016 11:59AM Hypercholesterolemia Oct 01 2016 11:59AM Chronic Smoker Oct 01 2016 11:59AM History of [place] (myocardial infarction) Oct 01 2016 11:59AM History of [place] (myocardial infarction) Nov 28 2016 9:51AM Hypercholesterolemia Nov 28 2016 9:51AM Smoker Nov 28 2016 9:51AM Prostate cancer screening Nov 28 2016 9:51AM Seasonal allergic rhinitis, unspecified allergic rhinitis trigger Nov 28 2016 12:51PM Smoker Nov 28 2016 12:51PM Atherosclerotic heart disease of [place] coronary artery without angina pectoris Nov 28 2016 12:51PM Coronary angioplasty status Nov 28 2016 12:51PM Chronic obstructive pulmonary disease, unspecified COPD type Nov 28 2016 12: 51PM History of [place] (myocardial infarction) Nov 28 2016 12:51PM Moderate Acute Nasal congestion with rhinorrhea Nov 28 2016 12:51PM History of [place] (myocardial infarction) Oct 23 2017 9:47AM Hypercholesterolemia [...] exacerbation Feb 16 2018 8:51AM History of [place] (myocardial infarction) Feb 16 2018 8:51AM Seasonal allergic rhinitis, unspecified allergic rhinitis trigger Feb 16 2018 8:51AM Smoker Feb 16 2018 8:51AM Orthopnea Feb 16 2018 8:51AM COPD (chronic obstructive pulmonary disease) Feb 18 2018 8:41AM History of [place] (myocardial infarction) Feb 18 2018 8:41AM COPD (chronic obstructive pulmonary disease) Feb 18 2018 8:26AM Chronic obstructive pulmonary disease, unspecified COPD type Feb 18 2018 8: 26AM History of [place] (myocardial infarction) Feb 18 2018 8:26AM Smoker Feb 18 2018 8:26AM Hypoxemia Feb 18 2018 8:26AM Dependence on supplemental oxygen Feb 18 2018 8:26AM Severe Acute SOB (shortness of breath) on exertion Improving Feb 18 2018 8: 26AM Payers Insurance Name Company Name Plan Name Plan Number Policy Number Policy Group Number [id number] N/A History of Encounters Visit Date Visit Type Provider 02/18/2018 Office visit ALIRIO ZUNIGA 02/16/2018 Office visit ALIRIO ZUNIGA 01/26/2018 Office visit ALIRIO ZUNIGA 12/11/2017 Office visit ALIRIO ZUNIGA 10/23/2017 Office visit ALIRIO ZUNIGA 11/28/2016 Office visit ALIRIO ZUNIGA 10/01/2016 Office visit ALIRIO ZUNIGA
--- OUTSIDE RECORDS SUMMARY | 2018-07-15 06:58 | XMS REPORT ---
Author Author ALIRIO COELLO [facility] Address [address] [place], [place] [address] Care Team Providers Care Car Groomer Name Role Phone ALIRIO COELLO PCP ALIRIO COELLO PreferredProvider Allergies and Adverse Reactions Not available. Plan of Treatment Planned Activity Comments Planned Date Planned Time Plan/Goal CBC with Differential 03/23/2018 12:00 AM CMP 03/23/2018 12:00 AM .Lipid Panel 03/23/2018 12:00 AM Medications Active Name Start Date [...] 02/16/2018 take as directed for 5 days albuterol sulfate 2.5 mg /3 mL (0.083 %) inhalation solution for nebulization 02/25/2018 inhale 3 milliliters (2.5 mg) by nebulization route 4 times per day DX J44.9 furosemide 40 mg oral tablet 03/16/2018 06/14/2018 take 1 tablet (40 mg) by oral route 2 times per day for 30 days Name Start Date Expiration Date SIG Comments Symbicort 160-4.5 mcg/actuation inhalation HFA aerosol inhaler 10/08/201710/08 INHALE TWO PUFFS BY MOUTH TWICE DAILY (MORNING AND EVENING) ProAir HFA 90 mcg/actuation inhalation HFA aerosol inhaler 12/01/2017 12/01/2017 INHALE ONE PUFF BY MOUTH EVERY 6 HOURS NEEDED Discontinued Name Start Date Discontinued Date SIG Comments albuterol sulfate oral 02/25/2018 Problem List Description Status Onset Smoker Active 10/07/2016 Hypercholesterolemia Active 10/07/2016 CAD S/P percutaneous coronary angioplasty Active 10/07/2016 Chronic obstructive pulmonary disease, unspecified COPD type Active 2016 History of [place] (myocardial infarction) Active 10/07/2016 Seasonal allergic rhinitis, unspecified allergic rhinitis trigger Active Hypoxemia requiring supplemental oxygen Active 02/19/2018 Vital Signs Date Time BP-Sys(mm[Hg] BP-Paradise(mm[Hg]) HR(bpm) RR(rpm) Temp WT HT HC BMI BSA BMI Percentile O2 Sat(%) 03/23/2018 7:59:00 AM 120 mmHg 68 mmHg [...] Reviewed 01/26/2018 12:00 AM Decadron 8mg Injection, [facility] Medicare Reviewed 01/26/2018 12:00 AM Depo-Medrol 80mg Injection, [facility] Medicare Reviewed 02/16/2018 12:00 AM THER/PROPH/DIAG INJ SC/IM Reviewed 02/16/2018 12:00 AM Decadron 8mg Injection Reviewed 02/18/2018 12:00 AM TTE W/DOPPLER COMPLETE Returned 03/16/2018 12:00 AM THER/PROPH/DIAG INJ SC/IM Reviewed 03/16/2018 12:00 AM Decadron 8mg Injection Reviewed 03/16/2018 12:00 AM Depo-Medrol 80mg Injection Reviewed 03/16/2018 12:00 AM Lasix, Up to 20 Mg [facility]#[id number] Reviewed 03/23/2018 12:00 AM ROUTINE VENIPUNCTURE Reviewed Results Summary Not available. History Of Immunizations Not available. History of Past Illness Name Date of Onset Comments Heart Attack Hay Fever Arthritis Chronic Obstructive Pulmonary Disease Emphysema Smoker 10/07/2016 Hypercholesterolemia 10/07/2016 CAD S/P percutaneous coronary angioplasty 10/07/2016 Chronic obstructive pulmonary disease, unspecified COPD type 10/07/2016 History of [place] (myocardial infarction) 10/07/2016 Seasonal allergic rhinitis, unspecified allergic rhinitis trigger 12/09/2016 Hypoxemia requiring supplemental oxygen 02/19/2018 Chronic obstructive pulmonary disease, unspecified COPD type Oct 01 2016 11: 59AM Atherosclerotic heart disease of [place] coronary artery without angina pectoris Oct 01 2016 11:59AM Coronary angioplasty status Oct 01 2016 11:59AM Hypercholesterolemia Oct 01 2016 11:59AM Chronic Smoker Oct 01 2016 11:59AM History of [place] (myocardial infarction) Oct 01 2016 11:59AM History of [place] (myocardial infarction) Nov 28 2016 9:51AM Hypercholesterolemia Nov 28 2016 9:51AM Smoker Nov 28 2016 9:51AM Prostate cancer screening Nov 28 2016 9:51AM Seasonal allergic rhinitis, unspecified allergic rhinitis trigger Nov 28 2016 12:51PM Smoker Nov 28 2016 12:51PM Atherosclerotic heart disease of [place] coronary artery without angina pectoris Nov 28 2016 12:51PM Coronary angioplasty status Nov 28 2016 12:51PM Chronic obstructive pulmonary disease, unspecified COPD type Nov 28 2016 12: 51PM History of [place] (myocardial infarction) Nov 28 2016 12:51PM Moderate Acute Nasal congestion with rhinorrhea Nov 28 2016 12:51PM History of [place] (myocardial infarction) Oct 23 2017 9:47AM Hypercholesterolemia [...] exacerbation Feb 16 2018 8:51AM History of [place] (myocardial infarction) Feb 16 2018 8:51AM Seasonal allergic rhinitis, unspecified allergic rhinitis trigger Feb 16 2018 8:51AM Smoker Feb 16 2018 8:51AM Orthopnea Feb 16 2018 8:51AM COPD (chronic obstructive pulmonary disease) Feb 18 2018 8:41AM History of [place] (myocardial infarction) Feb 18 2018 8:41AM COPD (chronic obstructive pulmonary disease) Feb 18 2018 8:26AM Chronic obstructive pulmonary disease, unspecified COPD type Feb 18 2018 8: 26AM History of [place] (myocardial infarction) Feb 18 2018 8:26AM Smoker Feb 18 2018 8:26AM Hypoxemia Feb 18 2018 8:26AM Dependence on supplemental oxygen Feb 18 2018 8:26AM Severe Acute SOB (shortness of breath) on exertion Improving Feb 18 2018 8: 26AM History of [place] (myocardial infarction) Mar 23 2018 8:28AM Hypercholesterolemia Mar 23 2018 8:28AM Smoker Mar 23 2018 8:28AM Prostate cancer screening Mar 23 2018 8:28AM Payers Insurance Name Company Name Plan Name Plan Number Policy Number Policy Group Number [id number]/A History of Encounters Visit Date Visit Type Provider 03/23/2018 Office visit ALIRIO ZUNIGA 03/16/2018 Office visit ALIRIO ZUNIGA 02/18/2018 Office visit ALIRIO ZUNIGA 02/16/2018 Office visit ALIRIO ZUNIGA 01/26/2018 Office visit ALIRIO ZUNIGA 12/11/2017 Office visit ALIRIO ZUNIGA 10/23/2017 Office visit ALIRIO ZUNIGA 11/28/2016 Office visit ALIRIO ZUNIGA 10/01/2016 Office visit ALIRIO ZUNIGA
--- OUTSIDE RECORDS SUMMARY | 2018-07-15 06:58 | XMS REPORT ---
Author ALIRIO Gonzales [facility] Address [address] [place], [place] [id number] Care Team Providers Care Deck Cadet Name Role Phone ALIRIO COELLO PCP Unavailable [...] inhalation route every 6 hours as needed fluticasone 50 mcg/actuation nasal spray,suspension 11/28/2016 inhale 1 spray (50 mcg) in each nostril by intranasal route 2 times per day Problem List Description Status Onset Smoker Active 10/07/2016 Hypercholesterolemia Active 10/07/2016 CAD S/P percutaneous coronary angioplasty Active 10/07/2016 Chronic obstructive pulmonary disease, unspecified COPD type Active 2016 History of [place] (myocardial infarction) Active 10/07/2016 Seasonal allergic rhinitis, [...] 11/28/2016 12:00 AM THER/PROPH/DIAG INJ SC/IM Reviewed Results Summary Data and Description Results 11/28/2016 4:58 PM PSA TOTAL 1.190 ng/mLGLUCOSE 90.0 mg/dLSODIUM 140.0 mmol/ LPOTASSIUM 4.50 mmol/LCHLORIDE 102.0 mmol/LCO2 27.0 mmol/LBUN 13.0 mg/ dLCREATININE 0.90 mg/dLSGOT/AST 28.0 IU/LSGPT/ALT 32.0 IU/LALK PHOS 132.0 IU/ LTOTAL PROTEIN 7.50 g/dLALBUMIN 4.20 g/dLTOTAL BILI 0.70 mg/dLCALCIUM 9.60 mg/ dLAGE 63 GFR NonAA 85 GFR AA 103 eGFR >60 mL/min/1.73meGFR AA* >60 TRIGLYCERIDES 70.0 mg/dLCHOLESTEROL 120.0 mg/dLHDL 33.0 mg/dLTOT CHOL/HDL 3.6 LDL (CALC) 73.0 mg/dLWBC 8.2 RBC 4.78 HGB 14.40 g/dLHCT 44.70 %MCV 94.0 fLMCH 30.10 pgMCHC 32.20 g/dLRDW SD 44 RDW CV 12.80 %MPV 9.50 fLPLT 248 NRBC# 0.00 NRBC% 0.0 %NEUT 67.50 %%LYMP 16.30 %%MONO 9.20 %%EOS 5.60 %%BASO 1.20 %#NEUT 5.56 #LYMP 1.34 #MONO 0.76 #EOS 0.46 #BASO 0.10 MANUAL DIFF NOT IND History Of Immunizations Not available. History of Past Illness Name Date of Onset Comments Heart Attack Hay Fever Arthritis Chronic Obstructive Pulmonary Disease Emphysema Smoker 10/07/2016 Hypercholesterolemia 10/07/2016 CAD S/P percutaneous coronary angioplasty 10/07/2016 Chronic obstructive pulmonary disease, unspecified COPD type 10/07/2016 History of [place] (myocardial infarction) 10/07/2016 Seasonal allergic rhinitis, unspecified allergic rhinitis trigger 12/09/2016 Chronic obstructive pulmonary disease, unspecified COPD type Oct 01 2016 11: 59AM Atherosclerotic heart disease of [place] coronary artery without angina pectoris Oct 01 2016 11:59AM Coronary angioplasty status Oct 01 2016 11:59AM Hypercholesterolemia Oct 01 2016 11:59AM Chronic Smoker Oct 01 2016 11:59AM History of [place] (myocardial infarction) Oct 01 2016 11:59AM History of [place] (myocardial infarction) Nov 28 2016 9:51AM Hypercholesterolemia Nov 28 2016 9:51AM Smoker Nov 28 2016 9:51AM Prostate cancer screening Nov 28 2016 9:51AM Seasonal allergic rhinitis, unspecified allergic rhinitis trigger Nov 28 2016 12:51PM Smoker Nov 28 2016 12:51PM Atherosclerotic heart disease of [place] coronary artery without angina pectoris Nov 28 2016 12:51PM Coronary angioplasty status Nov 28 2016 12:51PM Chronic obstructive pulmonary disease, unspecified COPD type Nov 28 2016 12: 51PM History of [place] (myocardial infarction) Nov 28 2016 12:51PM Moderate Acute Nasal congestion with rhinorrhea Nov 28 2016 12:51PM Payers Insurance Name Company Name Plan Name Plan Number Policy Number Policy Group Number [facility] Date [id number] N/A History of Encounters Visit Date Visit Type Provider 11/28/2016 Office visit ALIRIO ZUNIGA 10/01/2016 Office visit ALIRIO ZUNIGA
--- OUTSIDE RECORDS SUMMARY | 2018-07-15 06:58 | XMS REPORT ---
Author Author ALIRIO COELLO [facility] Address [address] [place], [place] [address] Care Team Providers Care Adjunct Psychology Instructor Name Role Phone ALIRIO COELLO PCP ALIRIO [...] 12/11/2017 take as directed for 5 days Name Start Date Expiration Date SIG Comments Symbicort 160-4.5 mcg/actuation inhalation HFA aerosol inhaler 10/08/201710/08 INHALE TWO PUFFS BY MOUTH TWICE DAILY (MORNING AND EVENING) ProAir HFA 90 mcg/actuation inhalation HFA aerosol inhaler 12/01/2017 12/01/2017 INHALE ONE PUFF BY MOUTH EVERY 6 HOURS NEEDED fluticasone 50 mcg/actuation nasal spray,suspension 12/05/2017 12/05/2017 USE ONE SPRAY IN EACH NOSTRIL TWICE DAILY Problem List Description Status Onset Smoker Active 10/07/2016 Hypercholesterolemia Active 10/07/2016 CAD S/P percutaneous coronary angioplasty Active 10/07/2016 Chronic obstructive pulmonary disease, unspecified COPD type Active 2016 History of [place] (myocardial infarction) Active 10/07/2016 Seasonal allergic rhinitis, unspecified allergic rhinitis trigger Active Vital Signs Date Time BP-Sys(mm[Hg] BP-Paradise(mm[Hg]) HR(bpm) RR(rpm) Temp WT HT HC BMI BSA BMI Percentile O2 Sat(%) 12/11/2017 2:40:00 PM 146 mmHg 80 mmHg [...] 2016 11: 59AM Atherosclerotic heart disease of [place] coronary artery without angina pectoris Oct 01 [...] 28 2016 12:51PM Atherosclerotic heart disease of [place] coronary artery without angina pectoris Nov 28 [...] and seasonal allergies Dec 11 2017 2:40PM Payers Insurance Name Company Name Plan Name Plan Number Policy Number Policy Group Number Start Date [facility]BS [facility] [id number] N/A History of Encounters Visit Date Visit Type Provider 12/11/2017 Office visit ALIRIO ZUNIGA 10/23/2017 Office visit ALIRIO ZUNIGA 11/28/2016 Office visit ALIRIO ZUNIGA 10/01/2016 Office visit ALIRIO ZUNIGA
--- OUTSIDE RECORDS SUMMARY | 2018-07-15 06:58 | XMS REPORT ---
Author Author ALIRIO COELLO [facility] Address [address] [place], [place] [id number] Care Team Providers Care [employer] Rep Name Role Phone ALIRIO COELLO PCP Unavailable Allergies and Adverse Reactions Not available. Plan of Treatment Planned Activity Comments Planned Date Planned Time Plan/Goal Injection, Subcutaneous/IM 11/28/2016 12:00 AM Medications Active Name Start [...] unspecified COPD type Active 2016 History of [place] (myocardial infarction) Active 10/07/2016 Vital Signs Date [...] Returned 11/28/2016 12:00 AM ROUTINE VENIPUNCTURE Reviewed Results Summary Data and Description Results [...] disease, unspecified COPD type 10/07/2016 History of [place] (myocardial infarction) 10/07/2016 Chronic obstructive pulmonary disease, unspecified COPD type Oct 01 2016 11: 59AM Atherosclerotic heart disease of [place] coronary artery without angina pectoris Oct 01 2016 11:59AM Coronary angioplasty status Oct 01 2016 11:59AM Hypercholesterolemia Oct 01 2016 11:59AM Chronic Smoker Oct 01 2016 11:59AM History of [place] (myocardial infarction) Oct 01 2016 11:59AM History of [place] (myocardial infarction) Nov 28 2016 9:51AM Hypercholesterolemia Nov 28 2016 9:51AM Smoker Nov 28 2016 9:51AM Prostate cancer screening Nov 28 2016 9:51AM Payers Insurance Name Company Name Plan Name Plan Number Policy Number Policy Group Number [id number] N/A History of Encounters Visit Date Visit Type Provider 11/28/2016 Office visit ALIRIO ZUNIGA 10/01/2016 Office visit ALIRIO ZUNIGA
--- OUTSIDE RECORDS SUMMARY | 2018-07-15 06:59 | XMS REPORT ---
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 Name Role Phone ALIRIO COELLO PCP ALIRIO [...] unspecified COPD type Active 2016 History of [place] (myocardial infarction) Active 10/07/2016 Seasonal allergic rhinitis, [...] Reviewed 01/26/2018 12:00 AM Decadron 8mg Injection, [facility] Medicare Reviewed 01/26/2018 12:00 AM Depo-Medrol 80mg Injection, [facility] Medicare Reviewed 02/16/2018 12:00 AM THER/PROPH/DIAG [...] disease, unspecified COPD type 10/07/2016 History of [place] (myocardial infarction) 10/07/2016 Seasonal allergic rhinitis, unspecified allergic rhinitis trigger 12/09/2016 Chronic obstructive pulmonary disease, unspecified COPD type Oct 01 2016 11: 59AM Atherosclerotic heart disease of [place] coronary artery without angina pectoris Oct 01 2016 11:59AM Coronary angioplasty status Oct 01 2016 11:59AM Hypercholesterolemia Oct 01 2016 11:59AM Chronic Smoker Oct 01 2016 11:59AM History of [place] (myocardial infarction) Oct 01 2016 11:59AM History of [place] (myocardial infarction) Nov 28 2016 9:51AM Hypercholesterolemia Nov 28 2016 9:51AM Smoker Nov 28 2016 9:51AM Prostate cancer screening Nov 28 2016 9:51AM Seasonal allergic rhinitis, unspecified allergic rhinitis trigger Nov 28 2016 12:51PM Smoker Nov 28 2016 12:51PM Atherosclerotic heart disease of [place] coronary artery without angina pectoris Nov 28 2016 12:51PM Coronary angioplasty status Nov 28 2016 12:51PM Chronic obstructive pulmonary disease, unspecified COPD type Nov 28 2016 12: 51PM History of [place] (myocardial infarction) Nov 28 2016 12:51PM Moderate Acute Nasal congestion with rhinorrhea Nov 28 2016 12:51PM History of [place] (myocardial infarction) Oct 23 2017 9:47AM Hypercholesterolemia [...] exacerbation Feb 16 2018 8:51AM History of [place] (myocardial infarction) Feb 16 2018 8:51AM Seasonal allergic rhinitis, unspecified allergic rhinitis trigger Feb 16 2018 8:51AM Smoker Feb 16 2018 8:51AM Orthopnea Feb 16 2018 8:51AM COPD (chronic obstructive pulmonary disease) Feb 18 2018 8:41AM History of [place] (myocardial infarction) Feb 18 2018 8:41AM Payers Insurance Name Company Name Plan Name Plan Number Policy Number Policy Group Number [id number]A History of Encounters Visit Date Visit Type Provider 02/18/2018 Office visit ALIRIO ZUNIGA 02/16/2018 Office visit ALIRIO ZUNIGA 01/26/2018 Office visit ALIRIO ZUNIGA 12/11/2017 Office visit ALIRIO ZUNIGA 10/23/2017 Office visit ALIRIO ZUNIGA 11/28/2016 Office visit ALIRIO ZUNIGA 10/01/2016 Office visit ALIRIO ZUNIGA
--- OUTSIDE RECORDS SUMMARY | 2018-07-15 07:00 | XMS REPORT ---
Author Author ALIRIO COELLO [facility] Address [address] [place], [place] [address] Care Team Providers Care Undercar Specialist Name Role Phone ALIRIO COELLO PCP ALIRIO COELLO PreferredProvider Allergies and Adverse Reactions Not available. Plan of Treatment Planned Activity Comments Planned Date Planned Time Plan/Goal Injection, Subcutaneous/IM 02/16/2018 12:00 AM Medications Active Name Start Date [...] used in Small Volume Nebulizer QID PRN Name Start Date Expiration Date SIG Comments [...] unspecified COPD type Active 2016 History of [place] (myocardial infarction) Active 10/07/2016 Seasonal allergic rhinitis, unspecified allergic rhinitis trigger Active Vital Signs Date Time BP-Sys(mm[Hg] BP-Paradise(mm[Hg]) HR(bpm) RR(rpm) Temp WT HT HC BMI BSA BMI Percentile O2 Sat(%) 02/16/2018 8:50:00 AM 190 mmHg 100 mmHg 114 bpm 22 rpm 98.4 F 160 lbs 72 in 21.6997 kg/m 1.9201 m 84 % 01/26/2018 10:58:00 AM 130 mmHg 72 mmHg 82 bpm 20 rpm 96 F 181 lbs 73 in 23.88 kg/m2 2.06 m2 98 % 12/11/2017 2:40:00 PM 146 mmHg [...] Reviewed 01/26/2018 12:00 AM Decadron 8mg Injection, [facility] Medicare Reviewed 01/26/2018 12:00 AM Depo-Medrol 80mg Injection, [facility] Medicare Reviewed Results Summary Not available. History Of Immunizations Not available. History of Past Illness Name Date of Onset Comments Heart Attack Hay Fever Arthritis Chronic Obstructive Pulmonary Disease Emphysema Smoker 10/07/2016 Hypercholesterolemia 10/07/2016 CAD S/P percutaneous coronary angioplasty 10/07/2016 Chronic obstructive pulmonary disease, unspecified COPD type 10/07/2016 History of [place] (myocardial infarction) 10/07/2016 Seasonal allergic rhinitis, unspecified allergic rhinitis trigger 12/09/2016 Chronic obstructive pulmonary disease, unspecified COPD type Oct 01 2016 11: 59AM Atherosclerotic heart disease of [place] coronary artery without angina pectoris Oct 01 2016 11:59AM Coronary angioplasty status Oct 01 2016 11:59AM Hypercholesterolemia Oct 01 2016 11:59AM Chronic Smoker Oct 01 2016 11:59AM History of [place] (myocardial infarction) Oct 01 2016 11:59AM History of [place] (myocardial infarction) Nov 28 2016 9:51AM Hypercholesterolemia Nov 28 2016 9:51AM Smoker Nov 28 2016 9:51AM Prostate cancer screening Nov 28 2016 9:51AM Seasonal allergic rhinitis, unspecified allergic rhinitis trigger Nov 28 2016 12:51PM Smoker Nov 28 2016 12:51PM Atherosclerotic heart disease of [place] coronary artery without angina pectoris Nov 28 2016 12:51PM Coronary angioplasty status Nov 28 2016 12:51PM Chronic obstructive pulmonary disease, unspecified COPD type Nov 28 2016 12: 51PM History of [place] (myocardial infarction) Nov 28 2016 12:51PM Moderate Acute Nasal congestion with rhinorrhea Nov 28 2016 12:51PM History of [place] (myocardial infarction) Oct 23 2017 9:47AM Hypercholesterolemia [...] exacerbation Feb 16 2018 8:51AM History of [place] (myocardial infarction) Feb 16 2018 8:51AM Seasonal allergic rhinitis, unspecified allergic rhinitis trigger Feb 16 2018 8:51AM Smoker Feb 16 2018 8:51AM Orthopnea Feb 16 2018 8:51AM Payers Insurance Name Company Name Plan Name Plan Number Policy Number Policy Group Number Start Date BCBS [facility] [id number] N/A History of Encounters Visit Date Visit Type Provider 02/16/2018 Office visit ALIRIO ZUNIGA 01/26/2018 Office visit ALIRIO ZUNIGA 12/11/2017 Office visit ALIRIO ZUNIGA 10/23/2017 Office visit ALIRIO ZUNIGA 11/28/2016 Office visit ALIRIO ZUNIGA 10/01/2016 Office visit ALIRIO ZUNIGA
--- OUTSIDE RECORDS SUMMARY | 2018-07-15 07:01 | XMS REPORT | Continuity of Care Document ---
Author Author [facility] Organization [facility] Address Unknown Phone Unavailable Allergies Active Description Code Type Severity Reaction Onset Reported/Identified Relationship to Patient Clinical Status Yes No Known Drug Allergies [id number] Drug Allergy Unknown N/A 07/14/2018 Medications There is no data. Problems Date Dx Coded Attending Type Code Diagnosis Diagnosed By 09/26/2016 Irlanda BRYANT MD Ot F17.210 NICOTINE DEPENDENCE, CIGARETTES, UNCOMPL 09/26/2016 Irlanda BRYANT MD Ot I21.19 STEMI INVOLVING OTH CORONARY ARTERY OF I 09/26/2016 Irlanda BRYANT MD Ot I25.10 ATHSCL HEART DISEASE OF [place] CORONARY 09/26/2016 Irlanda BRYANT MD Ot J44.9 CHRONIC OBSTRUCTIVE PULMONARY DISEASE, U 09/26/2016 Irlanda BRYANT MD Ot F17.210 NICOTINE DEPENDENCE, CIGARETTES, UNCOMPL 09/26/2016 Irlanda BRYANT MD Ot I21.19 STEMI INVOLVING OTH CORONARY ARTERY OF I 09/26/2016 Irlanda BRYANT MD Ot I25.10 ATHSCL HEART DISEASE OF [place] CORONARY 09/26/2016 Irlanda BRYANT MD Ot I25.5 ISCHEMIC CARDIOMYOPATHY 09/26/2016 Irlanda BRYANT MD Ot J44.9 CHRONIC OBSTRUCTIVE PULMONARY DISEASE, U 01/17/2017 Irlanda BRYANT MD Ot I21.3 ST ELEVATION (STEMI) MYOCARDIAL INFARCTI 01/17/2017 Irlanda BRYANT MD Ot I25.5 ISCHEMIC CARDIOMYOPATHY 01/17/2017 Irlanda BRYANT MD, Ot J44.9 CHRONIC OBSTRUCTIVE PULMONARY DISEASE, U 01/17/2017 Irlanda BRYANT MD Ot Z72.0 TOBACCO USE 02/16/2018 S I700 Atherosclerosis of aorta 02/16/2018 S R0602 Shortness of breath 02/16/2018 P R0902 Hypoxemia 02/16/2018 S R0989 Other specified symptoms and signs involving the circulatory and respiratory systems 02/20/2018 S I252 Old myocardial infarction 02/20/2018 S I340 Nonrheumatic mitral (valve) insufficiency 02/20/2018 P I352 Nonrheumatic aortic (valve) stenosis with insufficiency 02/20/2018 S J449 Chronic obstructive pulmonary disease, unspecified 02/20/2018 S R0602 Shortness of breath 06/17/2018 PAIGE GILBERTINE Leta [employer] MANAGER Ot J30.2 OTHER SEASONAL ALLERGIC RHINITIS 06/17/2018 PAIGE GILBERTINE E [employer] EX[employer] LOGISTICS MANAGER Ot J44.9 CHRONIC OBSTRUCTIVE PULMONARY DISEASE, U 06/17/2018 PAIGE GILBERTINE E [employer] EXPORT LOGISTICS MANAGER Ot M79.89 OTHER SPECIFIED SOFT TISSUE DISORDERS 06/17/2018 PAIGE GILBERTINE E [employer] EXPORT LOGISTICS MANAGER Ot R06.00 DYSPNEA, UNSPECIFIED 06/17/2018 PAIGE GILBERTINE E [employer] EXPORT LOGISTICS MANAGER Ot R09.02 HYPOXEMIA 06/17/2018 PAIGE GILBERTINE E [employer] EXPORT LOGISTICS MANAGER Ot R53.83 OTHER FATIGUE 06/17/2018 PAIGE GILBERTINE E [employer] EXPORT LOGISTICS MANAGER Ot Z72.0 TOBACCO USE 06/21/2018 PAIGE GILBERTINE Leta [employer] EXPORT LOGISTICS MANAGER Ot J30.2 OTHER SEASONAL ALLERGIC RHINITIS 06/21/2018 PAIGE GILBERTINE E [employer] EXPORT LOGISTICS MANAGER Ot J44.9 CHRONIC OBSTRUCTIVE PULMONARY DISEASE, U 06/21/2018 PAIGE GILBERTINE E [employer] EXPORT LOGISTICS MANAGER Ot M79.89 OTHER SPECIFIED SOFT TISSUE DISORDERS 06/21/2018 PAIGE GILBERTINE Leta [employer] EXPORT LOGISTICS MANAGER Ot R06.00 DYSPNEA, UNSPECIFIED 06/21/2018 PAIGE GILBERTINE Leta [employer] EXPORT LOGISTICS MANAGER Ot R09.02 HYPOXEMIA 06/21/2018 PAIGE GILBERTINE E [employer] EXPORT LOGISTICS MANAGER Ot R53.83 OTHER FATIGUE 06/21/2018 PAIGE GILBERTINE E [employer] EXPORT LOGISTICS MANAGER Ot Z72.0 TOBACCO USE 07/13/2018 PAIGE GILBERTINE E [employer] EXPORT LOGISTICS MANAGER Ot J30.2 OTHER SEASONAL ALLERGIC RHINITIS 07/13/2018 PAIGE GILBERTINE E [employer] EXPORT LOGISTICS MANAGER Ot J30.2 OTHER SEASONAL ALLERGIC RHINITIS 07/13/2018 PAIGE GILBERTINE Leta [employer] EXPORT LOGISTICS MANAGER Ot J44.9 CHRONIC OBSTRUCTIVE PULMONARY DISEASE, U 07/13/2018 PAIGE GILBERTINE E [employer] EXPORT LOGISTICS MANAGER Ot M79.89 OTHER SPECIFIED SOFT TISSUE DISORDERS 07/13/2018 NICOLE GILBERT APRN Ot R06.00 DYSPNEA, UNSPECIFIED 07/13/2018 NICOLE GILBERT APRN Ot R09.02 HYPOXEMIA 07/13/2018 NICOLE GILBERT APRN Ot R53.83 OTHER FATIGUE 07/13/2018 NICOLE GILBERT APRN Ot Z72.0 TOBACCO USE 07/14/2018 NICOLE GILBERT APRN Ot J30.2 OTHER SEASONAL ALLERGIC RHINITIS Procedures Code Description Performed By Performed On [id number] DILATION OF 1 COR ART WITH DRUG-ELUT INT 09/24/2016 [id number] MEASURE OF CARDIAC SAMPL PRESSURE, L H 09/24/2016 [id number] FLUOROSCOPY OF MULT COR ART USING L OSM 09/24/2016 [id number] FLUOROSCOPY OF LEFT HEART USING LOW OSMO 09/24/2016 Results Test Result Range Complete blood count (CBC) with automated white blood cell (WBC) differential - 09/24/16 02:58 Blood leukocytes automated count (number/volume) 14.7 10*3/uL 4.3-11.0 Blood erythrocytes automated count (number/volume) 4.96 10*6/uL 4.35-5.85 Venous blood hemoglobin measurement (mass/volume) 15.4 g/dL 13.3-17.7 Blood hematocrit (volume fraction) 45 % 40-54 Automated erythrocyte mean corpuscular volume 92 [foz_us] 80-99 Automated erythrocyte mean corpuscular hemoglobin (mass per erythrocyte) 31 pg 25-34 Automated erythrocyte mean corpuscular hemoglobin concentration measurement ( mass/volume) 34 g/dL 32-36 Automated erythrocyte distribution width ratio 13.3 % 10.0-14.5 Automated blood platelet count (count/volume) 248 10*3/uL 130-400 Automated blood platelet mean volume measurement 9.3 [foz_us] 7.4-10.4 Automated blood neutrophils/100 leukocytes 70 % 42-75 Automated blood lymphocytes/100 leukocytes 17 % 12-44 Blood monocytes/100 leukocytes 10 % 0-12 Automated blood eosinophils/100 leukocytes 2 % 0-10 Automated blood basophils/100 leukocytes 0 % 0-10 Blood neutrophils automated count (number/volume) 10.3 10*3 1.8-7.8 Blood lymphocytes automated count (number/volume) 2.5 10*3 1.0-4.0 Blood monocytes automated count (number/volume) 1.5 10*3 0.0-1.0 Automated eosinophil count 0.4 10*3/uL 0.0-0.3 Automated blood basophil count (count/volume) 0.1 10*3/uL 0.0-0.1 PT panel in platelet poor plasma by coagulation assay - 09/24/16 02:58 Prothrombin time (PT) in platelet poor plasma by coagulation assay 14.7 s 12.2-14.7 INR in platelet poor plasma or blood by coagulation assay 1.2 0.8-1.4 Activated partial thromboplastin time (aPTT) in platelet poor plasma bycoagulation assay - 09/24/16 02:58 Activated partial thromboplastin time (aPTT) in platelet poor plasma bycoagulation assay 35 s 24-35 Comprehensive metabolic panel - 09/24/16 02:58 Serum or plasma sodium measurement (moles/volume) 140 mmol/L 135-145 Serum or plasma potassium measurement (moles/volume) 4.3 mmol/L 3.6-5.0 Serum or plasma chloride measurement (moles/volume) 104 mmol/L 98-107 Carbon dioxide 23 mmol/L 21-32 Serum or plasma anion gap determination (moles/volume) 13 mmol/L 5-14 Serum or plasma urea nitrogen measurement (mass/volume) 18 mg/dL 7-18 Serum or plasma creatinine measurement (mass/volume) 0.97 mg/dL 0.60-1.30 Serum or plasma urea nitrogen/creatinine mass ratio 19 NRG Serum or plasma creatinine measurement with calculation of estimated glomerular filtration rate > NRG Serum or plasma glucose measurement (mass/volume) 156 mg/dL 70-105 Serum or plasma calcium measurement (mass/volume) 8.8 mg/dL 8.5-10.1 Serum or plasma total bilirubin measurement (mass/volume) 0.4 mg/dL 0.1-1.0 Serum or plasma alkaline phosphatase measurement (enzymatic activity/volume) 91 U/L 40-136 Serum or plasma aspartate aminotransferase measurement (enzymatic activity/ volume) 41 U/L 5-34 Serum or plasma alanine aminotransferase measurement (enzymatic activity/volume ) 39 U/L 0-55 Serum or plasma protein measurement (mass/volume) 7.0 g/dL 6.4-8.2 Serum or plasma albumin measurement (mass/volume) 4.0 g/dL 3.2-4.5 Magnesium - 09/24/16 02:58 Magnesium 2.1 mg/dL 1.8-2.4 Serum or plasma troponin i.cardiac measurement (mass/volume) - 09/24/16 02:58 Serum or plasma troponin i.cardiac measurement (mass/volume) < ng/ mL <0.30 Myoglobin, serum - 09/24/16 02:58 Myoglobin, serum 82.7 ng/mL 10.0-92.0 Blood manual differential performed detection - 09/24/16 02:58 Blood monocytes/100 leukocytes 9 % NRG Manual blood segmented neutrophils/100 leukocytes 72 % NRG Blood band neutrophils/100 leukocytes 1 % NRG Manual blood lymphocytes/100 leukocytes 8 % NRG Manual eosinophils/100 leukocytes in nose 3 % NRG Manual blood basophils/100 leukocytes 1 % NRG Blood lymphocytes variant/100 leukocytes 6 % NRG Blood erythrocyte morphology finding identification NORMAL NRG Methicillin resistant Staphylococcus aureus (MRSA) screening culture - 05:00 Methicillin resistant Staphylococcus aureus (MRSA) screening culture NEG NRG Serum or plasma troponin i.cardiac measurement (mass/volume) - 09/24/16 08:45 Serum or plasma troponin i.cardiac measurement (mass/volume) 97.06 ng/mL <0.30 Serum or plasma troponin i.cardiac measurement (mass/volume) - 09/24/16 15:14 Serum or plasma troponin i.cardiac measurement (mass/volume) 120.42 ng/mL <0.30 Complete blood count (CBC) with automated white blood cell (WBC) differential - 09/25/16 04:10 Blood leukocytes automated count (number/volume) 12.0 10*3/uL 4.3-11.0 Blood erythrocytes automated count (number/volume) 3.66 10*6/uL 4.35-5.85 Venous blood hemoglobin measurement (mass/volume) 11.4 g/dL 13.3-17.7 Blood hematocrit (volume fraction) 34 % 40-54 Automated erythrocyte mean corpuscular volume 92 [foz_us] 80-99 Automated erythrocyte mean corpuscular hemoglobin (mass per erythrocyte) 31 pg 25-34 Automated erythrocyte mean corpuscular hemoglobin concentration measurement ( mass/volume) 34 g/dL 32-36 Automated erythrocyte distribution width ratio 13.0 % 10.0-14.5 Automated blood platelet count (count/volume) 220 10*3/uL 130-400 Automated blood platelet mean volume measurement 9.6 [foz_us] 7.4-10.4 Automated blood neutrophils/100 leukocytes 67 % 42-75 Automated blood lymphocytes/100 leukocytes 19 % 12-44 Blood monocytes/100 leukocytes 12 % 0-12 Automated blood eosinophils/100 leukocytes 2 % 0-10 Automated blood basophils/100 leukocytes 0 % 0-10 Blood neutrophils automated count (number/volume) 8.0 10*3 1.8-7.8 Blood lymphocytes automated count (number/volume) 2.3 10*3 1.0-4.0 Blood monocytes automated count (number/volume) 1.5 10*3 0.0-1.0 Automated eosinophil count 0.2 10*3/uL 0.0-0.3 Automated blood basophil count (count/volume) 0.0 10*3/uL 0.0-0.1 Whole blood basic metabolic panel - 09/25/16 04:10 Serum or plasma sodium measurement (moles/volume) 138 mmol/L 135-145 Serum or plasma potassium measurement (moles/volume) 3.8 mmol/L 3.6-5.0 Serum or plasma chloride measurement (moles/volume) 104 mmol/L 98-107 Carbon dioxide 22 mmol/L 21-32 Serum or plasma anion gap determination (moles/volume) 12 mmol/L 5-14 Serum or plasma urea nitrogen measurement (mass/volume) 20 mg/dL 7-18 Serum or plasma creatinine measurement (mass/volume) 0.78 mg/dL 0.60-1.30 Serum or plasma urea nitrogen/creatinine mass ratio 26 NRG Serum or plasma creatinine measurement with calculation of estimated glomerular filtration rate > NRG Serum or plasma glucose measurement (mass/volume) 92 mg/dL 70-105 Serum or plasma calcium measurement (mass/volume) 8.4 mg/dL 8.5-10.1 Serum or plasma phosphate measurement (mass/volume) - 09/25/16 04:10 Serum or plasma phosphate measurement (mass/volume) 2.8 mg/dL 2.3-4.7 Magnesium - 09/25/16 04:10 Magnesium 1.7 mg/dL 1.8-2.4 Serum or plasma troponin i.cardiac measurement (mass/volume) - 09/25/16 04:10 Serum or plasma troponin i.cardiac measurement (mass/volume) 68.66 ng/mL <0.30 Automated blood complete blood count (hemogram) panel - 09/25/16 21:50 Blood leukocytes automated count (number/volume) 10.3 10*3/uL 4.3-11.0 Blood erythrocytes automated count (number/volume) 3.57 10*6/uL 4.35-5.85 Venous blood hemoglobin measurement (mass/volume) 11.1 g/dL 13.3-17.7 Blood hematocrit (volume fraction) 32 % 40-54 Automated erythrocyte mean corpuscular volume 91 [foz_us] 80-99 Automated erythrocyte mean corpuscular hemoglobin (mass per erythrocyte) 31 pg 25-34 Automated erythrocyte mean corpuscular hemoglobin concentration measurement ( mass/volume) 34 g/dL 32-36 Automated erythrocyte distribution width ratio 12.6 % 10.0-14.5 Automated blood platelet count (count/volume) 192 10*3/uL 130-400 Automated blood platelet mean volume measurement 9.4 [foz_us] 7.4-10.4 Whole blood basic metabolic panel - 09/25/16 21:50 Serum or plasma sodium measurement (moles/volume) 135 mmol/L 135-145 Serum or plasma potassium measurement (moles/volume) 3.6 mmol/L 3.6-5.0 Serum or plasma chloride measurement (moles/volume) 102 mmol/L 98-107 Carbon dioxide 24 mmol/L 21-32 Serum or plasma anion gap determination (moles/volume) 9 mmol/L 5-14 Serum or plasma urea nitrogen measurement (mass/volume) 20 mg/dL 7-18 Serum or plasma creatinine measurement (mass/volume) 0.78 mg/dL 0.60-1.30 Serum or plasma urea nitrogen/creatinine mass ratio 26 NRG Serum or plasma creatinine measurement with calculation of estimated glomerular filtration rate > NRG Serum or plasma glucose measurement (mass/volume) 98 mg/dL 70-105 Serum or plasma calcium measurement (mass/volume) 8.2 mg/dL 8.5-10.1 Bacterial blood culture - 09/25/16 21:50 Bacterial blood culture NG NRG Bacterial blood culture - 09/25/16 21:55 Bacterial blood culture NG NRG Automated blood complete blood count (hemogram) panel - 09/26/16 03:24 Blood leukocytes automated count (number/volume) 9.9 10*3/uL 4.3-11.0 Blood erythrocytes automated count (number/volume) 3.77 10*6/uL 4.35-5.85 Venous blood hemoglobin measurement (mass/volume) 11.8 g/dL 13.3-17.7 Blood hematocrit (volume fraction) 34 % 40-54 Automated erythrocyte mean corpuscular volume 91 [foz_us] 80-99 Automated erythrocyte mean corpuscular hemoglobin (mass per erythrocyte) 31 pg 25-34 Automated erythrocyte mean corpuscular hemoglobin concentration measurement ( mass/volume) 34 g/dL 32-36 Automated erythrocyte distribution width ratio 12.7 % 10.0-14.5 Automated blood platelet count (count/volume) 214 10*3/uL 130-400 Automated blood platelet mean volume measurement 9.5 [foz_us] 7.4-10.4 Comprehensive metabolic panel - 09/26/16 03:24 Serum or plasma sodium measurement (moles/volume) 138 mmol/L 135-145 Serum or plasma potassium measurement (moles/volume) 3.7 mmol/L 3.6-5.0 Serum or plasma chloride measurement (moles/volume) 103 mmol/L 98-107 Carbon dioxide 28 mmol/L 21-32 Serum or plasma anion gap determination (moles/volume) 7 mmol/L 5-14 Serum or plasma urea nitrogen measurement (mass/volume) 18 mg/dL 7-18 Serum or plasma creatinine measurement (mass/volume) 0.83 mg/dL 0.60-1.30 Serum or plasma urea nitrogen/creatinine mass ratio 22 NRG Serum or plasma creatinine measurement with calculation of estimated glomerular filtration rate > NRG Serum or plasma glucose measurement (mass/volume) 100 mg/dL 70-105 Serum or plasma calcium measurement (mass/volume) 8.8 mg/dL 8.5-10.1 Serum or plasma total bilirubin measurement (mass/volume) 0.8 mg/dL 0.1-1.0 Serum or plasma alkaline phosphatase measurement (enzymatic activity/volume) 77 U/L 40-136 Serum or plasma aspartate aminotransferase measurement (enzymatic activity/ volume) 111 U/L 5-34 Serum or plasma alanine aminotransferase measurement (enzymatic activity/volume ) 55 U/L 0-55 Serum or plasma protein measurement (mass/volume) 6.2 g/dL 6.4-8.2 Serum or plasma albumin measurement (mass/volume) 3.6 g/dL 3.2-4.5 Arterial blood gas measurement - 06/15/18 11:45 Blood pCO2 42 mm[Hg] 35-45 Blood pO2 66 mm[Hg] 79-93 Arterial blood bicarbonate measurement (moles/volume) 28 mmol/L 23-27 Arterial blood base excess by calculation 3.3 mmol/L -2.5 -2.5 Arterial blood oxygen saturation measurement 94 % 94-100 * Inhaled oxygen flow rate N/A NRG Arterial blood pH measurement with patient temperature correction 7.42 7.37-7.43 Arterial blood carbon dioxide, total measurement (moles/volume) 29.0 mmol/L 21.0-31.0 Body site RIGHT BRACHIAL NRG Assessment of wrist artery patency prior to arterial puncture POSITIVE NRG Setting of ventilation mode NO NRG Measurement of body temperature 96.8 NRG Encounters ACCT No. Visit Date/Time Discharge Status Pt. Type Provider Facility Loc./Unit Complaint [id number] 04/13/2018 10:44:19 04/13/2018 23:59:59 ROBERT Outpatient ALIIRO COELLO [id number] 03/23/2018 08:42:43 03/23/2018 23:59:59 ROBERT Outpatient ALIRIO COELLO [id number] 03/16/2018 09:47:44 03/16/2018 23:59:59 ALIRIO Conteh [id number] 02/18/2018 08:39:51 02/18/2018 23:59:59 ALIRIO Conteh [id number] 02/16/2018 09:40:46 02/16/2018 23:59:59 ROBERT Outpatient ALIRIO COELLO [id number] 01/26/2018 10:30:36 01/26/2018 23:59:59 ALIRIO Conteh [id number] 12/17/2017 12:49:45 12/17/2017 23:59:59 ALIRIO Conteh [id number] 10/23/2017 09:49:30 10/23/2017 23:59:59 ALIRIO Conteh [id number] 10/23/2017 09:00:48 10/23/2017 23:59:59 ROBERT Outpatient ALIRIO COELLO [id number] 11/29/2016 07:31:17 11/29/2016 23:59:59 CLS Outpatient ALIRIO COELLO Sunny [id number] 10/01/2016 13:40:15 10/01/2016 23:59:59 CLS Outpatient ALIRIO COELLO [id number] 07/14/2018 06:43:00 07/14/2018 12:51:00 DIS Outpatient ANDRÉS MCCABE DO [facility] PREOP EBUS [id number] 06/15/2018 10:47:00 06/15/2018 23:59:59 CLS Outpatient NICOLE GILBERT APRN [facility] RT J44.9 [id number] 10/24/2017 10:31:00 10/24/2017 23:59:59 CLS Preadmit Irlanda BRYANT MD [facility] CARD I25.10 [id number] 12/30/2016 10:51:00 12/30/2016 23:59:59 CLS Outpatient Irlanda BRYANT MD [facility] CARD COPD,CARDIOMYOPATHY, ISCHEMIC,STEMI,TOBACCO USE [id number] 09/24/2016 04:47:00 09/26/2016 16:25:00 DIS Inpatient Irlanda BRYANT MD [facility] ICU ACUTE MYOCARDIAL INFARCTION OF INFERIOR WALL [id number] 07/20/2018 08:30:00 PEN Preadmit NICOLE GILBERT APRN [facility] RT COPD [id number] 07/15/2018 07:30:00 PEN Preadmit ANDRÉS MCCABE DO [facility] ENDO LUNG MASS, TOBACCO USE, DYSPNEA, COPD [id number] 07/14/2018 10:01:00 ACT Outpatient ANDRÉS MCCABE DO [facility] RAD LUNG MASS [id number] 07/13/2018 08:03:00 ACT Outpatient NICOLE GILBERT APRN [facility] RAD COPD,DYSPNEA,LEG SWELLING, HYPOXEMIA REQUIRING SUPP [id number] 02/20/2018 12:47:00 Document Registration [id number] 02/16/2018 09:49:00 Document Registration [id number] 09/24/2016 23:00:00 09/24/2016 23:59:59 CLS Outpatient DOLLY KHAN [facility]
--- OUTSIDE RECORDS SUMMARY | 2018-07-15 07:01 | XMS REPORT ---
Author Author ALIRIO COELLO [facility] Address [address] [place], [place] [id number] Care Team Providers Care Pearl Technician Name Role Phone ALIRIO COELLO PCP ALIRIO [...] unspecified COPD type Active 2016 History of VA (myocardial infarction) Active 10/07/2016 Seasonal allergic rhinitis, unspecified allergic rhinitis trigger Active Vital Signs Date Time BP-Sys(mm[Hg] BP-Paradise(mm[Hg]) HR(bpm) RR(rpm) Temp WT HT HC BMI BSA BMI Percentile O2 Sat(%) 10/23/2017 1:44:00 PM 148 mmHg 82 mmHg 82 bpm 18 rpm 96.9 F 178 lbs 73 in 23.48 kg/m2 2.04 m2 98 % 11/28/2016 12:50:00 PM 118 mmHg 65 mmHg 78 bpm 18 rpm 96.9 F 177 lbs 74 in 22.7252 kg/m 2.0474 m 98 % 10/01/2016 11:58:00 AM 110 mmHg [...] 12:00 AM Rocephin 1 gram Injection Reviewed Results Summary Not available. History Of Immunizations Not available. History of Past Illness Name Date of Onset Comments Heart Attack Hay Fever Arthritis Chronic Obstructive Pulmonary Disease Emphysema Smoker 10/07/2016 Hypercholesterolemia 10/07/2016 CAD S/P percutaneous coronary angioplasty 10/07/2016 Chronic obstructive pulmonary disease, unspecified COPD type 10/07/2016 History of VA (myocardial infarction) 10/07/2016 Seasonal allergic rhinitis, unspecified allergic rhinitis trigger 12/09/2016 Chronic obstructive pulmonary disease, unspecified COPD type Oct 01 2016 11: 59AM Atherosclerotic heart disease of [place] coronary artery without angina pectoris Oct 01 2016 11:59AM Coronary angioplasty status Oct 01 2016 11:59AM Hypercholesterolemia Oct 01 2016 11:59AM Chronic Smoker Oct 01 2016 11:59AM History of VA (myocardial infarction) Oct 01 2016 11:59AM History of VA (myocardial infarction) Nov 28 2016 9:51AM Hypercholesterolemia Nov 28 2016 9:51AM Smoker Nov 28 2016 9:51AM Prostate cancer screening Nov 28 2016 9:51AM Seasonal allergic rhinitis, unspecified allergic rhinitis trigger Nov 28 2016 12:51PM Smoker Nov 28 2016 12:51PM Atherosclerotic heart disease of [place] coronary artery without angina pectoris Nov 28 2016 12:51PM Coronary angioplasty status Nov 28 2016 12:51PM Chronic obstructive pulmonary disease, unspecified COPD type Nov 28 2016 12: 51PM History of VA (myocardial infarction) Nov 28 2016 12:51PM Moderate Acute Nasal congestion with rhinorrhea Nov 28 2016 12:51PM History of VA (myocardial infarction) Oct 23 2017 9:47AM Hypercholesterolemia Oct 23 2017 9:47AM Smoker Oct 23 2017 9:47AM Purulent postnasal drainage Oct 23 2017 1:44PM Chest congestion Oct 23 2017 1:44PM Upper respiratory tract infection, unspecified type Oct 23 2017 1:44PM Sinus pressure Oct 23 2017 1:44PM Payers Insurance Name Company Name Plan Name Plan Number Policy Number Policy Group [id number] History of Encounters Visit Date Visit Type Provider 10/23/2017 Office visit ALIRIO ZUNIGA 11/28/2016 Office visit ALIRIO ZUNIGA 10/01/2016 Office visit ALIRIO ZUNIGA
[2018-07-15] MEDS ORDERED: LACTATED RINGERS 1,000 ML IV ONE (07:03)
[2018-07-15] MEDS ORDERED: PROPOFOL INJECTION 50 ML IV ONE (07:07)
[2018-07-15] MEDS ORDERED: proPOfol 200 MG/20 ML (DIPRIVAN) VIAL IV ONE ×2 (07:07→08:13)
[2018-07-15] MEDS ORDERED: fentaNYL INJECTION 100 MCG/2 ML AMP ONE (07:07)
[2018-07-15] MEDS ORDERED: ROCURONIUM 10 MG/ML 5 ML SYRINGE IV ONE (07:07)
[2018-07-15] MEDS ORDERED: LIDOCAINE PF 2% 5 ML (XYLOCAINE) VIAL ONE (07:07)
[2018-07-15] MEDS ORDERED: ONDANSETRON 4 MG/2 ML (SDV) Z0FRAN ONE (07:11)
[2018-07-15 07:24] VITALS: BP 107/64
[2018-07-15] MEDS ORDERED: PHENYLEPHRINE 100 MCG/ML 10 ML (ANESTHESIA) SYR ONE ×2 (07:48→08:22)
[2018-07-15] MEDS ORDERED: GLYCOPYRROLATE 0.2 MG/ML (ROBINUL) 2 ML VIAL ONE (08:10)
[2018-07-15] MEDS ORDERED: NEOSTIGMINE 1 MG/ML 5 ML SYRINGE ONE (08:10)
[2018-07-15] MEDS ORDERED: NS IV 500 ML 500 ML ONE (08:31)
[2018-07-15] MEDS ORDERED: NS IV 500 ML 500 ML IV ONE (08:45)
[2018-07-15 09:20] VITALS: BP 91/52
--- NOTE | 2018-07-15 09:23 | Diagnostic Imaging Report ---
INDICATION: Status post bronchoscopy. Time of exam 9:01 AM Correlation is made with prior study from 09/25/2016. Lungs appear to be hyperinflated consistent with COPD. No pneumothorax is identified, status post bronchoscopy. No effusion is seen. The heart size is stable. Density in the left upper lobe is again seen correlating with CT and PET abnormality. There appears to be some adjacent pleural thickening present. IMPRESSION: Left upper lobe masslike density. No pneumothorax is identified, status post bronchoscopy. Dictated by: Dictated on workstation # [id number]
[2018-07-15 09:50] VITALS: BP 96/63
[2018-07-15 10:01] VITALS: BP 96/63
--- NOTE | 2018-07-15 10:44 | Diagnostic Imaging Report ---
INDICATION: Status post bronchoscopy. FINDINGS: Fluoroscopy was provided during bronchoscopy. 31 seconds of fluoroscopy was utilized. A single image over the left chest was performed. IMPRESSION: Fluoroscopy for bronchoscopy. Dictated by: Dictated on workstation # [id number]
[2018-07-15 12:54] LABS: BODY FLUID APPEARENCE CLEAR; BODY FLUID COLOR COLORLESS; BODY FLUID RBC COUNT 2.22 /uL; BODY FLUID SOURCE BRONCH WASH; BODY FLUID WBC TOTAL COUNT 27.8 /uL
[2018-07-15 12:58] LABS: BF OTHER CELLS 33 %; LYMPHOCYTES,BODY FLUID 8 %
--- NOTE | 2018-07-15 14:18 | Anesthesia-General Post-Op ---
General Patient Condition Mental Status/LOC: Same as Preop Cardiovascular: Satisfactory Nausea/Vomiting: Absent Respiratory: Satisfactory Pain: Controlled Complications: Absent Post Op Complications Complications None Follow Up Care/Instructions Patient Instructions None needed. Anesthesia/Patient Condition Patient Condition Patient is doing well, no complaints, stable vital signs, no apparent adverse anesthesia problems. No complications reported per nursing. TERELL KILPATRICK CRNA Jul 15, 2018 14:18
--- NOTE | 2018-07-22 10:54 | Pulmonary Procedures ---
Pulmonary Procedures Date of Procedure Date of Service: Jul 15, 2018 Bronch Bronchoscopy with fluoroscopy transbronchial ROSANA brush, and BAL. EBUS was used to US mediastinum. No transbronchial needle aspiration was done secondary to no enlarged lymph nodes on mediastinal US using EBUS. Preop DX: Lung Mass PostOP DX: same Complications: None Pt was sedated per anesthesia. Bronchoscopy was advanced through the ED tube and an anatomical undertaken down to the segmental bronchi bilaterally. No endobronchial lesions noted. Bronchoscopy with fluoroscopy transbronchial ROSANA brush, and BAL. EBUS was used to US mediastinum. No transbronchial needle aspiration was done secondary to no enlarged lymph nodes on mediastinal US using EBUS. Pt tolerated procedure well. No complications noted. ANDRÉS MCCABE DO Jul 22, 2018 10:54
== END 2018-07-15 10:00 | disposition home or self-care (01) ==
LOC: ENDO 06:50
PROVIDERS: ATTEND Internal Medicine Critical Care Medicine
DX: R09.02 Hypoxemia (principal); J44.9 Chronic obstructive pulmonary disease, unspecified; R91.1 Solitary pulmonary nodule; R79.89 Other specified abnormal findings of blood chemistry; F17.210 Nicotine dependence, cigarettes, uncomplicated; Z79.82 Long term (current) use of aspirin; Z79.899 Other long term (current) drug therapy
CPT/HCPCS: 71045; 87015; 87070; 87077; 87101; 87116; 87185; 87186; 87205; 87206; 88112; 88305; 88312; 89051; 94640

== ENCOUNTER → 2018-07-20 | Outpatient (CLI) | payer MEDICARE, OTHER | LOC: RT 08:22 | PROVIDERS: ATTEND Nurse Practitioner Family | DX: J44.9 Chronic obstructive pulmonary disease, unspecified (principal); R91.8 Other nonspecific abnormal finding of lung field | CPT/HCPCS: 94060; 94726; 94729 ==

== ENCOUNTER 2018-08-05 07:49 | Inpatient (IN) | payer MEDICARE, OTHER ==
[2018-08-05] VITALS (28 sets, daily range): BP systolic 88–205; BP diastolic 56–106
[~2018-08-05] VITALS: Ht 185.4 cm; Wt 78.9 kg
[2018-08-05 08:20] LABS: HEMOGLOBIN 13.4 G/DL (13.3-17.7); MEAN PLATELET VOLUME 9.1 FL (7.4-10.4); RED BLOOD COUNT 4.6 10^6/uL (4.35-5.85); RED CELL DISTRIBUTION WIDTH 15.1 % (10.0-14.5); WHITE BLOOD COUNT 7.6 10^3/uL (4.3-11.0)
[2018-08-05 08:46] LABS: INR 1.1 (0.8-1.4)
[2018-08-05] MEDS ORDERED: NS IV 1000 ML 1,000 ML IV STA (09:47)
[2018-08-05] MEDS ORDERED: fentaNYL INJECTION 100 MCG/2 ML AMP ONE (09:54)
[2018-08-05] MEDS ORDERED: MIDAZOLAM 2 MG/2 ML (VERSED) VIAL ONE (09:54)
[2018-08-05] MEDS ORDERED: LIDOCAINE 1% INJ 20 ML 20 ML VIAL ONE (09:54)
[2018-08-05] MEDS ORDERED: MIDAZOLAM 2 MG/2 ML (VERSED) VIAL IVP ONE (10:00)
[2018-08-05] MEDS ORDERED: LIDOCAINE 1% INJ 20 ML 20 ML VIAL INJ ONE ×2 (10:00→11:25)
[2018-08-05] MEDS ORDERED: fentaNYL INJECTION 100 MCG/2 ML AMP IVP ONE (10:00)
[2018-08-05] MEDS ORDERED: NS IV 1000 ML 1,000 ML ONE (10:19)
--- NOTE | 2018-08-05 10:55 | Pre-Op Note & Conscious Sedat ---
Pre-Operative Progress Note H&P Reviewed The H&P was reviewed, patient examined and no changes noted. Date H&P Reviewed: Aug 05, 2018 Time H&P Reviewed: 09:00 Pre-Op Diagnosis: Lung mass Conscious Sedation Pre-Proced Time 09:00 ASA Score 2 For ASA 3 and 4: Consider anesthesia and medical clearance. Also, for patients with a history of failed moderate sedation consider anesthesia. Airway Lungs Heart ASA score ASA 1: a normal healthy patient ASA 2: a patient with a mild systemic disease (mid diabetes, controlled hypertension, obesity ASA 3: a patient with a severe systemic disease that limits activity (angina , COPD, prior Myocardial infarction) ASA 4: a patient with an incapacitating disease that is a constant threat to life (CHF, renal failure) ASA 5: a moribund patient not expected to survive 24 hrs. (ruptured aneurysm) ASA 6: a declared brain patient whose organs are being harvested. For emergent operations, add the letter E after the classification Mallampati Classification Grade 2 Sedation Plan Analgesia, Amnesia, Plan communicated to team members, Discussed options with patient/fam, Discussed risks with patient/fam The patient is an appropriate candidate to undergo the planned procedure, sedation, and anesthesia. The patient immediately re-assessed prior to indication. HARLEEN ROBERTSON MD Aug 05, 2018 10:55
--- NOTE | 2018-08-05 11:06 | Diagnostic Imaging Report ---
INDICATION: Post lung biopsy. EXAMINATION: Portable chest at 1057 hours. FINDINGS: There is a left pneumothorax that is predominantly loculated in the left lower lateral chest. There is some alveolar infiltrate in the periphery of the left upper lung. There is air trapping in the right lung. IMPRESSION: The post biopsy radiograph of the chest shows some alveolar hemorrhage and a laterally positioned pneumothorax measuring 3 cm in thickness. Dictated by: Dictated on workstation # [id number]
--- OUTSIDE RECORDS SUMMARY | 2018-08-05 12:16 | XMS REPORT | Continuity of Care Document ---
Author Author [facility] Organization [facility] Address Unknown Phone Unavailable Allergies Active Description Code Type Severity Reaction Onset Reported/Identified Relationship to Patient Clinical Status Yes No Known Drug Allergies [id number] Drug Allergy Unknown N/A 07/14/2018 Medications There is no data. Problems Date Dx Coded Attending Type Code Diagnosis Diagnosed By 09/26/2016 Irlanda BRYANT MD Ot F17.210 NICOTINE DEPENDENCE, CIGARETTES, UNCOMPL 09/26/2016 Irlanda BRYANT MD Ot I21.19 STEMI INVOLVING OTH CORONARY ARTERY OF I 09/26/2016 Irlanda BRYANT MD Ot I25.10 ATHSCL HEART DISEASE OF [place] CORONARY 09/26/2016 Irlanda BRYANT MD Ot J44.9 CHRONIC OBSTRUCTIVE PULMONARY DISEASE, U 09/26/2016 Irlanda BRYANT MD Ot F17.210 NICOTINE DEPENDENCE, CIGARETTES, UNCOMPL 09/26/2016 Irlanda BRYANT MD Ot I21.19 STEMI INVOLVING OTH CORONARY ARTERY OF I 09/26/2016 Irlanda BRYANT MD Ot I25.10 ATHSCL HEART DISEASE OF [place] CORONARY 09/26/2016 Irlanda BRYANT MD Ot I25.5 [...] Shortness of breath 06/17/2018 PAIGE GILBERTINE Leta PLATING INSPECTOR Ot J30.2 OTHER SEASONAL ALLERGIC RHINITIS 06/17/2018 PAIGE GILBERTINE E PLATING INSPECTOR Ot J44.9 CHRONIC OBSTRUCTIVE PULMONARY DISEASE, U 06/17/2018 PAIGE GILBERTINE E PLATING INSPECTOR Ot M79.89 OTHER SPECIFIED SOFT TISSUE DISORDERS 06/17/2018 PAIGE GILBERTINE E PLATING INSPECTOR Ot R06.00 DYSPNEA, UNSPECIFIED 06/17/2018 PAIGE GILBERTINE E PLATING INSPECTOR Ot R09.02 HYPOXEMIA 06/17/2018 PAIGE GILBERTINE E PLATING INSPECTOR Ot R53.83 OTHER FATIGUE 06/17/2018 PAIGE GILBERTINE E PLATING INSPECTOR Ot Z72.0 TOBACCO USE 06/21/2018 PAIGE GILBERTINE Leta PLATING INSPECTOR Ot J30.2 OTHER SEASONAL ALLERGIC RHINITIS 06/21/2018 PAIGE GILBERTINE E PLATING INSPECTOR Ot J44.9 CHRONIC OBSTRUCTIVE PULMONARY DISEASE, U 06/21/2018 PAIGE GILBERTINE E PLATING INSPECTOR Ot M79.89 OTHER SPECIFIED SOFT TISSUE DISORDERS 06/21/2018 PAIGE GILBERTINE Leta PLATING INSPECTOR Ot R06.00 DYSPNEA, UNSPECIFIED 06/21/2018 PAIGE GILBERTINE Leta PLATING INSPECTOR Ot R09.02 HYPOXEMIA 06/21/2018 PAIGE GILBERTINE E PLATING INSPECTOR Ot R53.83 OTHER FATIGUE 06/21/2018 PAIGE GILBERTINE E PLATING INSPECTOR Ot Z72.0 TOBACCO USE 07/13/2018 PAIGE GILBERTINE E PLATING INSPECTOR Ot J30.2 OTHER SEASONAL ALLERGIC RHINITIS 07/13/2018 PAIGE GILBERTINE E PLATING INSPECTOR Ot J30.2 OTHER SEASONAL ALLERGIC RHINITIS 07/13/2018 PAIGE GILBERTINE Leta PLATING INSPECTOR Ot J44.9 CHRONIC OBSTRUCTIVE PULMONARY DISEASE, U 07/13/2018 PAIGE GILBERTINE E PLATING INSPECTOR Ot M79.89 OTHER SPECIFIED SOFT TISSUE DISORDERS 07/13/2018 NICOLE GILBERT APRN Ot R06.00 DYSPNEA, UNSPECIFIED 07/13/2018 NICOLE GILBERT APRN Ot R09.02 HYPOXEMIA 07/13/2018 NICOLE GILBERT APRN Ot R53.83 OTHER FATIGUE 07/13/2018 NICOLE GILBERT APRN Ot Z72.0 TOBACCO USE 07/14/2018 NICOLE GILBERT APRN Ot J30.2 OTHER SEASONAL ALLERGIC RHINITIS 07/14/2018 ANDRÉS MCCABE DO Ot Z01.818 ENCOUNTER FOR OTHER PREPROCEDURAL EXAMIN 07/15/2018 ANDRÉS MCCABE DO Ot R59.0 LOCALIZED ENLARGED LYMPH NODES 07/15/2018 ANDRÉS MCCABE DO Ot R91.8 OTHER NONSPECIFIC ABNORMAL FINDING OF NICKI 07/15/2018 ANDRÉS MCCABE DO Ot R94.8 ABNORMAL RESULTS OF FUNCTION STUDIES OF 07/27/2018 ANDRÉS MCCABE DO Ot F17.210 NICOTINE DEPENDENCE, CIGARETTES, UNCOMPL 07/27/2018 ANDRÉS MCCABE DO Ot J44.9 CHRONIC OBSTRUCTIVE PULMONARY DISEASE, U 07/27/2018 ANDRÉS MCCABE DO Ot R09.02 HYPOXEMIA 07/27/2018 ANDRÉS MCCABE DO Ot R79.89 OTHER SPECIFIED ABNORMAL FINDINGS OF BLO 07/27/2018 ANDRÉS MCCABE DO Ot R91.1 SOLITARY PULMONARY NODULE 07/27/2018 ANDRÉS MCCABE DO Ot Z79.82 JAIL (CURRENT) USE OF ASPIRIN 07/27/2018 ANDRÉS MCCABE DO Ot Z79.899 OTHER COOK SPECIALTY (CURRENT) DRUG THERAPY 07/27/2018 ANDRÉS MCCABE DO Ot F17.210 NICOTINE DEPENDENCE, CIGARETTES, UNCOMPL 07/27/2018 ANDRÉS MCCABE DO Ot J44.9 CHRONIC OBSTRUCTIVE PULMONARY DISEASE, U 07/27/2018 ANDRÉS MCCABE DO Ot R09.02 HYPOXEMIA 07/27/2018 ANDRÉS MCCABE DO Ot R79.89 OTHER SPECIFIED ABNORMAL FINDINGS OF BLO 07/27/2018 ANDRÉS MCCABE DO Ot R91.1 SOLITARY PULMONARY NODULE 07/27/2018 ANDRÉS MCCABE DO Ot Z79.82 JAIL (CURRENT) USE OF ASPIRIN 07/27/2018 ANDRÉS MCCABE DO, Ot Z79.899 OTHER JAIL (CURRENT) DRUG THERAPY 07/30/2018 ANDRÉS MCCABE DO, Ot F17.210 NICOTINE DEPENDENCE, CIGARETTES, UNCOMPL 07/30/2018 ANDRÉS MCCABE DO, Ot J44.9 CHRONIC OBSTRUCTIVE PULMONARY DISEASE, U 07/30/2018 ANDRÉS MCCABE DO, Ot R09.02 HYPOXEMIA 07/30/2018 ANDRÉS MCCABE DO, Ot R79.89 OTHER SPECIFIED ABNORMAL FINDINGS OF BLO 07/30/2018 ANDRÉS MCCABE DO, Ot R91.1 SOLITARY PULMONARY NODULE 07/30/2018 ANDRÉS MCCABE DO, Ot Z79.82 COOK SPECIALTY (CURRENT) USE OF ASPIRIN 07/30/2018 ANDRÉS MCCABE DO, Ot Z79.899 OTHER JAIL (CURRENT) DRUG THERAPY Procedures Code Description Performed By Performed On 958829D DILATION OF 1 COR ART WITH DRUG-ELUT INT 09/24/2016 [id number] MEASURE OF CARDIAC SAMPL PRESSURE, L H 09/24/2016 [id number] FLUOROSCOPY OF MULT COR ART USING L OSM 09/24/2016 O8152DS FLUOROSCOPY OF LEFT HEART USING LOW OSMO [...] NRG Measurement of body temperature 96.8 NRG Body fluid cell count - 07/15/18 08:30 Specimen source identification of body fluid BRONCH WASH NRG Evaluation of color of body fluid COLORLESS NRG Determination of appearance of body fluid CLEAR NRG Body fluid leukocytes count (number/volume) 27.8 /uL NRG Body fluid erythrocytes count (number/volume) 2.22 /uL NRG Manual body fluid polymorphonuclear cells/100 leukocytes 52 % NRG Manual body fluid mononuclear cells/100 leukocytes 7 % NRG Manual body fluid lymphocytes/100 leukocytes 8 % NRG Other cells/100 leukocytes in body fluid by manual count 33 % NRG Sputum Gram stain - 07/15/18 08:30 Sputum Gram stain REPORTED [id number]. NRG Mycobacterium species detection by organism specific culture - 07/15/18 08:30 QUANTITY OF GROWTH . NRG Mycobacterium species detection by organism specific culture SEE COMMEN NRG Bacteria identification in bronchial specimen by aerobe culture - 07/15/18 08: 30 QUANTITY OF GROWTH . NRG Bacteria identification in bronchial specimen by aerobe culture SEE COMMEN NRG FTX;REPORTABLE >10,000 CFU/ML, BETA LACTAMASE NEGATIVE NRG RML Sensitivity Panel - 07/15/18 08:30 Gentamicin susceptibility test by minimum inhibitory concentration < = NRG Levofloxacin susceptibility test by minimum inhibitory concentration <= NRG Tobramycin susceptibility test by minimum inhibitory concentration S NRG Piperacillin/tazobactam susceptibility test by minimum inhibitory concentration = NRG Ciprofloxacin susceptibility test by minimum inhibitory concentration <= NRG Meropenem susceptibility test by minimum inhibitory concentration 0.5 NRG Aztreonam susceptibility test by minimum inhibitory concentration < = NRG Cefepime susceptibility test by minimum inhibitory concentration <= NRG Imipenem susceptibility test by minimum inhibitory concentration 4 NRG Ceftazidime susceptibility test by minimum inhibitory concentration 4 NRG C FUNGUS SPUTUM FLUID TISSUE - 07/15/18 08:30 FTX;REPORTABLE RAPID GROWER, ID TO FOLLOW NRG FREE TEXT ENTRY 2 REPORTED 07/27/18 16:05 NRG FUNGUS REPORT FUNGUS GROWTH OBSERVED NRG Automated blood complete blood count (hemogram) panel - 08/05/18 08:10 Blood leukocytes automated count (number/volume) 7.6 10*3/uL 4.3-11.0 Blood erythrocytes automated count (number/volume) 4.60 10*6/uL 4.35-5.85 Venous blood hemoglobin measurement (mass/volume) 13.4 g/dL 13.3-17.7 Blood hematocrit (volume fraction) 41 % 40-54 Automated erythrocyte mean corpuscular volume 89 [foz_us] 80-99 Automated erythrocyte mean corpuscular hemoglobin (mass per erythrocyte) 29 pg 25-34 Automated erythrocyte mean corpuscular hemoglobin concentration measurement ( mass/volume) 33 g/dL 32-36 Automated erythrocyte distribution width ratio 15.1 % 10.0-14.5 Automated blood platelet count (count/volume) 249 10*3/uL 130-400 Automated blood platelet mean volume measurement 9.1 [foz_us] 7.4-10.4 PT panel in platelet poor plasma by coagulation assay - 08/05/18 08:10 Prothrombin time (PT) in platelet poor plasma by coagulation assay 14.0 s 12.2-14.7 INR in platelet poor plasma or blood by coagulation assay 1.1 0.8-1.4 Activated partial thromboplastin time (aPTT) in platelet poor plasma bycoagulation assay - 08/05/18 08:10 Activated partial thromboplastin time (aPTT) in platelet poor plasma bycoagulation assay 31 s 24-35 Encounters ACCT No. Visit Date/Time Discharge Status Pt. Type Provider Facility Loc./Unit Complaint [id number] 04/13/2018 10:44:19 04/13/2018 23:59:59 ROBERT Outpatient OUMOUALIRIO Sunny [id number] 03/23/2018 08:42:43 03/23/2018 23:59:59 ROBERT Outpatient ALIRIO COELLO [id number] 03/16/2018 09:47:44 03/16/2018 23:59:59 ROBERT Outpatient OUMOU ALIRIO Correa [id number] 02/18/2018 08:39:51 02/18/2018 23:59:59 ROBERT Outpatient ALIRIO COELLO [id number] 02/16/2018 09:40:46 02/16/2018 23:59:59 ROBERT Outpatient ALIRIO COELLO [id number] 01/26/2018 10:30:36 01/26/2018 23:59:59 CLS Outpatient ALIRIO COELLO [id number] 12/17/2017 12:49:45 12/17/2017 23:59:59 CLS Outpatient OUMOUALIRIO UMANZOR [id number] 10/23/2017 09:49:30 10/23/2017 23:59:59 CLS Outpatient ALIRIO COELLO [id number] 10/23/2017 09:00:48 10/23/2017 23:59:59 ROBERT Outpatient ALIRIO COELLO [id number] 11/29/2016 07:31:17 11/29/2016 23:59:59 CLS Outpatient ALIRIO COELLO [id number] 10/01/2016 13:40:15 10/01/2016 23:59:59 CLS Outpatient ALIRIO COELLO [id number] 07/27/2018 10:33:00 07/27/2018 23:59:59 CLS Preadmit ANDRÉS MCCABE DO [facility] RAD LUNG MASS [id number] 07/20/2018 08:22:00 07/20/2018 23:59:59 CLS Outpatient NICOLE GILBERT APRN [facility] RT COPD [id number] 07/15/2018 06:50:00 07/15/2018 10:00:00 DIS Outpatient ANDRÉS MCCABE DO [facility] ENDO LUNG MASS, TOBACCO USE, DYSPNEA, COPD [id number] 07/14/2018 10:01:00 07/14/2018 23:59:59 CLS Outpatient ANDRÉS MCCABE DO [facility] RAD LUNG MASS [id number] 07/14/2018 06:43:00 07/14/2018 12:51:00 DIS Outpatient ANDRÉS MCCABE DO [facility] PREOP EBUS [id number] 07/13/2018 08:03:00 07/13/2018 23:59:59 CLS Outpatient NICOLE GILBERT PLATING INSPECTOR [facility] RAD COPD,DYSPNEA,LEG SWELLING,HYPOXEMIA REQUIRING SUPP [id number] 06/15/2018 10:47:00 06/15/2018 23:59:59 CLS Outpatient NICOLE GILBERT PLATING INSPECTOR [facility] RT J44.9 [id number] 10/24/2017 10:31:00 10/24/2017 23:59:59 CLS Preadmit Irlanda BRYANT MD [facility] CARD I25.10 [id number] 12/30/2016 10:51:00 12/30/2016 23:59:59 CLS Outpatient Irlanda BRYANT MD [facility] CARD COPD,CARDIOMYOPATHY, ISCHEMIC,STEMI,TOBACCO USE [id number] 09/24/2016 04:47:00 09/26/2016 16:25:00 DIS Inpatient Irlanda BRYANT MD [facility] ICU ACUTE MYOCARDIAL INFARCTION OF INFERIOR WALL [id number] 02/20/2018 12:47:00 Document Registration [id number] 02/16/2018 09:49:00 Document Registration [id number] 09/24/2016 23:00:00 09/24/2016 23:59:59 CLS Outpatient DOLLY KHAN [facility]
[2018-08-05] MEDS ORDERED: RT-ALBUTEROL/IPRATROPIUM 3 ML (DUONEB) VIAL IH PRN (12:30)
[2018-08-05] MEDS: NS IV 1000 ML 1,000 ML IV SCH (12:56)
[2018-08-05] MEDS: ENOXAPARIN 40 MG/0.4 ML (LOVENOX) SYR SC SCH (12:56)
[2018-08-05 13:17] LABS: BASOPHILS # (AUTO) 0.1 10^3/uL (0.0-0.1); BASOPHILS % (AUTO) 1 % (0-10); EOSINOPHILS # (AUTO) 0.2 10^3/uL (0.0-0.3); EOSINOPHILS % (AUTO) 2 % (0-10); HEMATOCRIT 40 % (40-54); HEMOGLOBIN 12.8 G/DL (13.3-17.7); LYMPHOCYTES % (AUTO) 11 % (12-44); MEAN CORPUSCULAR HEMOGLOBIN 29 PG (25-34); MEAN CORPUSCULAR HGB CONC 32 G/DL (32-36); MEAN CORPUSCULAR VOLUME 89 FL (80-99); MEAN PLATELET VOLUME 9.1 FL (7.4-10.4); MONOCYTES # (AUTO) 1.1 X 10^3 (0.0-1.0); MONOCYTES % (AUTO) 11 % (0-12); NEUTROPHILS # (AUTO) 7.5 X 10^3 (1.8-7.8); NEUTROPHILS % (AUTO) 77 % (42-75); PLATELET COUNT 256 10^3/uL (130-400); RED BLOOD COUNT 4.47 10^6/uL (4.35-5.85); RED CELL DISTRIBUTION WIDTH 15.1 % (10.0-14.5); WHITE BLOOD COUNT 9.8 10^3/uL (4.3-11.0)
--- NOTE | 2018-08-05 13:17 | Diagnostic Imaging Report ---
INDICATION: Left lung mass. Patient presents for CT-guided biopsy. PROCEDURE: After informed written consent was obtained from the patient, patient was brought to the CT suite and placed on the table in the left side down decubitus position. Axial imaging through the chest was performed to evaluate appropriate entry site. The study was performed utilizing conscious sedation with radiology nursing and constant patient monitoring. Patient was administered 0.5 mg of Versed intravenously and 50 mcg of Fentanyl intravenously during the procedure. Total procedure time was 13 minutes. The left upper posterior thorax was prepped and draped in usual sterile fashion. A small amount of 1% lidocaine was utilized for local anesthesia. A 20-gauge coaxial Temno needle was advanced into the irregular soft tissue mass in the left upper lobe. Total of four core biopsies were obtained. Next, the needle was repositioned in a different portion of the mass and two additional biopsies were obtained. Imaging did demonstrate developing pneumothorax. Next, blood patch was injected during needle removal and hemostasis was obtained using manual compression. Dressing was applied and the patient sat up. Patient became significantly short of breath. Nasal cannula was placed to high flow oxygen. Stat chest x-ray was ordered demonstrating a moderate sized basilar pneumothorax. Dr. Garcia was consulted. Dr. Garcia arrived to the department. Additional 50 mcg of Fentanyl was administered intravenously and patient was placed on a nonrebreather mask. Patient was placed in a supine position and axial imaging through the chest was performed to evaluate the pneumothorax. Anterior left chest was then prepped and draped in usual sterile fashion by Dr. Garcia. Small amount of 1% lidocaine was utilized for local anesthesia. A UreSil pneumothorax chest tube device was placed by Dr. Garcia into the anterior upper left pleural space. Pneumothorax was immediately evacuated. Followup imaging demonstrated complete reexpansion of the left lung. Patient's symptoms immediately improved. The device was affixed to the patient's anterior chest. Patient was admitted by Dr. Garcia to the SICU. IMPRESSION: CT-guided left upper lobe lung mass biopsy utilizing conscious sedation. Patient did develop a moderate sized pneumothorax. A chest tube was placed in the department by Dr. Garcia. Patient was admitted. Dictated by: Dictated on workstation # [id number]
--- NOTE | 2018-08-05 13:20 | Pulmonary Procedures ---
Pulmonary Procedures Date of Procedure Date of Service: Aug 05, 2018 Chest Tube : Chest Tube Position: Left (Anterior chest tube place under CT guidance. ) Chest Tube Location: Anterior Chest Size of [place] Tube (cm): 12 Chest Tube Procedure: betadine prep, sterile drapes applied, sterile dressing applied Anesthesia: 1% Lidocaine Volume Anesthetic (ccs): 8 Brennan of Air [place]: No Number of Attempts: 1 Tube Sutured to Skin: Yes Post Procedure CXR?: Yes ANDRÉS MCCABE DO Aug 05, 2018 13:20
--- NOTE | 2018-08-05 13:24 | Diagnostic Imaging Report ---
PROCEDURE: CT chest without contrast. TECHNIQUE: Multiple contiguous axial images were obtained through the chest without the use of intravenous contrast. INDICATION: Left lung mass, status post biopsy. FINDINGS: Following the patient's left lung biopsy, patient became short of breath after being transferred to the cart. Dr. Garcia was consulted. Patient was placed on non-rebreather mask and administered 50 mcg of fentanyl. Imaging of the chest was performed demonstrating a moderate-sized pneumothorax. There is a spiculated mass in the left lung apex with moderate airspace density consistent with patient's injected blood patch following the procedure. Anterior chest was then prepped and draped in usual sterile fashion. The procedure was performed by Dr. Garcia. Dr. Garcia placed a UreSil chest tube in between the second and third anterior ribs. There is complete reexpansion of the left lung with only minimal residual left basilar pneumothorax. Patient's clinical symptoms significantly improved. There is some subcutaneous gas present. IMPRESSION: CT chest demonstrating a moderate-sized left pneumothorax. There is complete reexpansion of the left lung following chest tube placement, as described. Dictated by: Dictated on workstation # [id number]
--- NOTE | 2018-08-05 13:27 | Pulmonary Consultation ---
History of Present Illness History of Present Illness Date of Consultation 08/05/18 13:22 Time Seen by Provider: 13:22 Date of Admission History of Present Illness 63yo with hx of COPD presented for elective CT bx of lung mass. S/P bx pt developed acute worsening SOB and CT scan showed pneumothorax. Dr. Vuong from radiology called me for chest tube placement. Pt has never had a pneumothorax in the past. After chest tube was placed pt's SOB was much improved. No f/NS/C. No productive cough. I called Dr. Haynes who agreed to accept pt's admission and I will follow along too. Allergies and Home Medications Allergies Coded Allergies: No Known Drug Allergies (Unverified , 07/14/18) Home Medications Albuterol Sulfate 8.5 Gm Hfa.aer.ad, 1-2 PUFF IH Q4H PRN for SHORTNESS OF BREATH , (Reported) Albuterol Sulfate 0.63 Mg/3 Ml Vial.neb, 0.63 MG IH QID, (Reported) Aspirin 81 Mg Tablet.dr, 81 MG PO DAILY Prescribed by: ALEK DUBOIS on 09/26/16 1555 Atorvastatin Calcium 40 Mg Tablet, 40 MG PO DAILY, (Reported) Cetirizine HCl 10 Mg Tablet, 10 MG PO DAILY, (Reported) Fluticasone/Umeclidin/Vilanter 1 Each Blst.w.dev, 1 EACH IH DAILY, (Reported) Furosemide 40 Mg Tablet, 40 MG PO DAILY, (Reported) Lisinopril 5 Mg Tablet, 5 MG PO DAILY, (Reported) Metoprolol Succinate 50 Mg Tab.er.24h, 50 MG PO DAILY, (Reported) Potassium Chloride 10 Meq Tablet.er, 10 MEQ PO DAILY, (Reported) Past Gsgjtav-Ctarvg-Rddbwe Hx Patient Social History Alcohol Use: Denies Use Recreational Drug Use: No Type Used: Cigarettes Recent Foreign Travel: No Contact w/Someone Who Travel: No Recent Infectious Disease Expo: No Recent Hopitalizations: No Immunizations Up To Date Tetanus Booster (TDap): More than 5yrs Date of Pneumonia Vaccine: Oct 25, 2012 Date of Influenza Vaccine: Jun 15, 2018 Seasonal Allergies Seasonal Allergies: No Past Medical History Surgeries: Yes (HERNIA) Abdominal Respiratory: Yes (O2 2L AT NIGHT) COPD Currently Using CPAP: No Currently Using BIPAP: No Cardiac: Yes (STENT-2015) High Cholesterol, Hypertension Neurological: No Reproductive Disorders: No Sexually Transmitted Disease: No HIV/AIDS: No Genitourinary: No Gastrointestinal: No Musculoskeletal: Yes Arthritis Endocrine: No HEENT: No Loss of Vision: Bilateral Hearing Impairment: Denies Cancer: No Psychosocial: No Integumentary: No Blood Disorders: No Adverse Reaction/Blood Tranf: No (N/A) Family Medical History Alzheimer's disease 19 MOTHER Arthritis G8 SISTER (RHYMATOID ARTHRITIS, PSORISIS) Cardiovascular disease 19 MOTHER (CHF) Colon cancer 19 FATHER Diabetes mellitus G8 SISTER (TYPE 1) Fibrocystic disease of breast G8 SISTER (BREAST CA) G8 SISTER (BREAST CA) Thyroid disease G8 SISTER Heart Disease Review of Systems Time Seen by Provider: 13:24 Constitutional: No: Fever, Chills, Sweats, Weakness, Malaise, Other Eyes: No: Pain, Vision change, Conjunctivae inflammation, Eyelid inflammation, Other, Redness Sepsis Event Evaluation Height, Weight, BMI Height: 6'1.00" Weight: 184lbs. 4.0oz. 83.857120zk; 24.3 BMI Method:Stated Exam Exam Vital Signs Date Time Temp Pulse Resp B/P (MAP) Pulse Ox O2 Delivery O2 Flow Rate FiO2 08/05/18 11:55 99.0 95 19 119/68 (85) 93 Nasal Cannula 4.00 08/05/18 08:10 99 18 116/106 93 Room Air Height & Weight Height: 6'1.00" Weight: 184lbs. 4.0oz. 83.841596bh; 24.3 BMI Method:Stated General Appearance: Anxious, Moderate Distress Neck: Full Range of Motion, Normal Inspection, Supple Respiratory: Chest Non Tender, Accessory Muscle Use, Decreased Breath Sounds Cardiovascular: Tachycardia Capillary Refill: Less Than 3 Seconds Neurologic/Psychiatric: Alert, Oriented x3 Skin: Normal Color, Warm/Dry Lymphatic: No Adenopathy Results Lab Laboratory Tests 08/05/18 08:10 08/05/18 13:10 Assessment/Plan Assessment/Plan Acute iatrogenic pneumothorax s/p anterior chest tube placement with hypoxia -Oxygen -Repeat CT scan after Chest tube placement showed resolution of PTX -Will admit pt to ICU for close monitoring Lung mass s/p CT bx -Await cytology results COPD hx -SVNs HX CAD Hx of HTN, hypercholesterolemia DVT ppx -Lovenox -SCDs Hx of AR HX of CHF with EF 40-45% Tobacco use -Education ANDRÉS MCCABE DO Aug 05, 2018 13:27
[2018-08-05 13:42] LABS: ALANINE AMINOTRANSFERASE 26 U/L (0-55); ALBUMIN 3.9 GM/DL (3.2-4.5); ALKALINE PHOSPHATASE 109 U/L (40-136); BILIRUBIN,TOTAL 0.7 MG/DL (0.1-1.0); BUN/CREATININE RATIO 19; CALCIUM 9.3 MG/DL (8.5-10.1); CARBON DIOXIDE 25 MMOL/L (21-32); CHLORIDE 105 MMOL/L (98-107); GFR ESTIMATED > 60; GLUCOSE 98 MG/DL (70-105); PHOSPHORUS 3.2 MG/DL (2.3-4.7); POTASSIUM 4.6 MMOL/L (3.6-5.0); SODIUM 138 MMOL/L (135-145); TOTAL PROTEIN 7.3 GM/DL (6.4-8.2)
[2018-08-05] MEDS ORDERED: MONT10TA24 PO (14:04)
[2018-08-05] MEDS ORDERED: ALBU2.5V4 NEB (14:12)
[2018-08-05] MEDS ORDERED: MELO7.5T46 PO (14:12)
[2018-08-05] MEDS ORDERED: ALBU18HF2 INH (14:12)
[2018-08-05] MEDS ORDERED: ASPI-983 PO (14:12)
--- NOTE | 2018-08-05 15:53 | Diagnostic Imaging Report ---
INDICATION: Pneumothorax. TIME OF EXAMINATION: 02:10 p.m. COMPARISON: Correlation is made with prior exam from earlier same day. FINDINGS: Small caliber chest tube has been placed, overlies the left upper chest. There has been complete reexpansion of the left lung without evidence of residual pneumothorax. Parenchymal density in left mid and upper lung field is noted consistent with pulmonary hemorrhage. Right lung is clear. IMPRESSION: No significant pneumothorax is identified, status post chest tube placement. Dictated by: Dictated on workstation # [id number]
[2018-08-05] MEDS: RT-ALBUTEROL/IPRATROPIUM 3 ML (DUONEB) VIAL IH SCH ×2 (16:02→22:04)
--- NOTE | 2018-08-05 16:05 | History & Physical-Hospitalist ---
History of Present Illness HPI/Chief Complaint Pt is a 63yoCM with a PMH of COPD, CAD s/p stenting, HLD who was direct admitted following a CT guided biopsy of a lung nodule due to a pneumothorax. Dr Garcia placed chest tube for evacuation. He denies any complaints at this time and specifically has no chest pain or shortness of breath. He was feeling well prior to his admission today. Source: patient Exam Limitations: no limitations Date Seen 08/05/18 Time Seen by a Provider: 14:30 Attending Physician Melecio Garcia DO PCP No,Local Physician Referring Physician Date of Admission Aug 05, 2018 at 11:48 Home Medications & Allergies Home Medications Reviewed patient Home Medication Reconciliation performed by pharmacy medication reconciliations industrial controls technician and/or nursing. Patients Allergies have been reviewed. Allergies Allergies Coded Allergies No Known Drug Allergies (Iepwkhpeuk72/16/18) Past Iafpwti-Cnhldq-Rjqaqf Hx Past Med/Social Hx: Reviewed Nursing Past Med/Soc Hx Patient Social History Alcohol Use: Denies Use Recreational Drug Use: No Type Used: Cigarettes Physical Abuse Screen: No Sexual Abuse: No Recent Foreign Travel: No Contact w/other who traveled: No Recent Hopitalizations: No Recent Infectious Disease Expo: No Immunizations Up To Date Tetanus Booster (TDap): More than 5yrs Date of Pneumonia Vaccine: Oct 25, 2012 Date of Influenza Vaccine: Jun 15, 2018 Seasonal Allergies Seasonal Allergies: No Past Medical History Surgeries: Abdominal Respiratory: COPD Currently Using CPAP: No Currently Using BIPAP: No Cardiac: Coronary Artery Disease, Heart Attack, High Cholesterol, Hypertension Reproductive: No Sexually Transmitted Disease: No HIV/AIDS: No Musculoskeletal: Arthritis Loss of Vision: Bilateral Hearing Impairment: Denies History of Blood Disorders: No Adverse Reaction to Blood [place]: No (N/A) Family History Alzheimer's disease 19 MOTHER Arthritis G8 SISTER (RHYMATOID ARTHRITIS, PSORISIS) Cardiovascular disease 19 MOTHER (CHF) Colon cancer 19 FATHER Diabetes mellitus G8 SISTER (TYPE 1) Fibrocystic disease of breast G8 SISTER (BREAST CA) G8 SISTER (BREAST CA) Thyroid disease G8 SISTER Heart Disease Review of Systems Constitutional: No chills, No fever EENTM: No blurred vision, No double vision, No nose congestion, No throat pain Respiratory: No cough, No dyspnea on exertion, No short of breath Cardiovascular: No chest pain, No edema, No palpitations Gastrointestinal: No abdominal pain, No constipation, No diarrhea, No nausea, No vomiting Genitourinary: No dysuria, No frequency Musculoskeletal: No joint pain, No muscle pain Skin: No lesions, No rash Psychiatric/Neurological: Denies Headache, Denies Numbness, Denies Tingling Physical Exam Physical Exam Vital Signs Vital Signs - First Documented 08/05/18 08/05/18 08:10 10:23 Pulse 99 Resp 18 B/P (MAP) 116/106 Pulse Ox 93 O2 Delivery Room Air O2 Flow Rate 3.00 Capillary Refill : Less Than 3 Seconds Height, Weight, BMI Height: 6'1.00" Weight: 184lbs. 4.0oz. 83.155256ix; 24.3 BMI Method:Stated General Appearance: No Apparent Distress, WD/WN HEENT: PERRL/EOMI, Moist Mucous Membranes Neck: Non Tender, Supple Respiratory: Lungs Clear, No Accessory Muscle Use, No Respiratory Distress, Other (evacuator box in place) Cardiovascular: Regular Rate, Rhythm, No Murmur Gastrointestinal: Normal Bowel Sounds, Non Tender, Soft Extremity: Normal Capillary Refill, No Calf Tenderness Neurologic/Psychiatric: Alert, Oriented x3, Normal Mood/Affect Skin: Normal Color, Warm/Dry Results Results/Procedures Labs Laboratory Tests 08/05/18 08:10 08/05/18 13:10 Patient resulted labs reviewed. Imaging: Reviewed Imaging Films, Reviewed Imaging Report Assessment/Plan Admission Diagnosis Pneumothorax Admission Status: Inpatient Order (span 2 midnights) Reason for Inpatient Admission: Chest tube placed Diagnosis/Problems Diagnosis/Problems (1) Pneumothorax after biopsy Status: Acute Assessment & Plan: Chest tube in place Management by Dr Garcia No signs of respiratory distress (2) COPD (chronic obstructive pulmonary disease) Status: Chronic Assessment & Plan: No s/s of exacerbation Resume home meds Qualifiers: COPD type: unspecified COPD Qualified Codes: J44.9 - Chronic obstructive pulmonary disease, unspecified (3) Lung mass Assessment & Plan: Underwent biopsy today Await results (4) CAD (coronary artery disease) Status: Chronic Assessment & Plan: Follows with Dr Talamantes History of [place] 2-3 years ago Continue home meds Qualifiers: Coronary Disease-Associated Artery/Lesion type: [place] artery [place] vs. transplanted heart: [place] heart Associated angina: without angina Qualified Codes: I25.10 - Atherosclerotic heart disease of [place] coronary artery without angina pectoris Clinical Quality Measures DVT/VTE Risk/Contraindication: Risk Factor Score Per Nursin RFS Level Per Nursing on Admit: 3=High KELSIE MOYER MD Aug 05, 2018 16:05
[2018-08-05] MEDS: LORATADINE (CLARITIN) 10 MG TAB PO SCH (20:13)
[2018-08-05] MEDS ORDERED: NON-FORMULARY MEDICATION 1 EA EA (Cetirizine HCl 10 MG) PO SCH (21:00)
[2018-08-05] MEDS: RT-ADVAIR HFA 115/21 MCG PER PUFF IH SCH (22:04)
[2018-08-06] VITALS (14 sets, daily range): BP systolic 94–136; BP diastolic 51–79
[2018-08-06] MEDS: RT-ALBUTEROL/IPRATROPIUM 3 ML (DUONEB) VIAL IH SCH ×4 (01:55→19:12)
[2018-08-06] MEDS: NS IV 1000 ML 1,000 ML IV SCH (02:23)
[2018-08-06 03:42] LABS: BASOPHILS % (AUTO) 1 % (0-10); EOSINOPHILS # (AUTO) 0.3 10^3/uL (0.0-0.3); EOSINOPHILS % (AUTO) 3 % (0-10); HEMATOCRIT 37 % (40-54); HEMOGLOBIN 11.9 G/DL (13.3-17.7); LYMPHOCYTES # (AUTO) 1.4 X 10^3 (1.0-4.0); LYMPHOCYTES % (AUTO) 15 % (12-44); MEAN CORPUSCULAR HEMOGLOBIN 29 PG (25-34); MEAN CORPUSCULAR HGB CONC 32 G/DL (32-36); MEAN CORPUSCULAR VOLUME 90 FL (80-99); MEAN PLATELET VOLUME 9.2 FL (7.4-10.4); MONOCYTES # (AUTO) 1.2 X 10^3 (0.0-1.0); MONOCYTES % (AUTO) 14 % (0-12); NEUTROPHILS % (AUTO) 68 % (42-75); PLATELET COUNT 230 10^3/uL (130-400); RED BLOOD COUNT 4.09 10^6/uL (4.35-5.85); RED CELL DISTRIBUTION WIDTH 15.1 % (10.0-14.5); WHITE BLOOD COUNT 8.8 10^3/uL (4.3-11.0)
[2018-08-06 04:01] LABS: BUN/CREATININE RATIO 16; CALCIUM 8.8 MG/DL (8.5-10.1); CARBON DIOXIDE 22 MMOL/L (21-32); CHLORIDE 106 MMOL/L (98-107); CREATININE SERUM 0.85 MG/DL (0.60-1.30); GFR ESTIMATED > 60; GLUCOSE 114 MG/DL (70-105); PHOSPHORUS 2.9 MG/DL (2.3-4.7); SODIUM 138 MMOL/L (135-145)
--- NOTE | 2018-08-06 06:00 | Pulmonary Progress Note ---
Subjective Time Seen by a Provider: 05:59 Subjective/Events-last exam Pt states he feels better. Denies SOB and CP. Sepsis Event Evaluation Height, Weight, BMI Height: 6'1.00" Weight: 184lbs. 4.0oz. 83.899775fk; 24.3 BMI Method:Stated Exam Exam Vital Signs Date Time Temp Pulse Resp B/P (MAP) Pulse Ox O2 Delivery O2 Flow Rate FiO2 08/06/18 04:00 85 22 98/63 (75) 94 Nasal Cannula 2.00 08/06/18 03:00 89 17 122/74 (90) 94 Nasal Cannula 2.00 08/06/18 02:00 84 18 98/52 (67) 98 Nasal Cannula 2.00 08/06/18 01:55 95 Room Air 2.00 08/06/18 01:00 90 08/06/18 01:00 90 19 94/51 (65) 93 Nasal Cannula 2.00 08/06/18 00:00 72 14 105/63 (77) 94 Nasal Cannula 2.00 08/06/18 00:00 Nasal Cannula 2.00 08/05/18 23:00 80 19 114/59 (77) 94 Nasal Cannula 2.00 08/05/18 22:25 112 19 98 Nasal Cannula 2.00 08/05/18 22:08 99 Nasal Cannula 2.00 08/05/18 22:04 96 Room Air 08/05/18 22:00 81 21 111/64 (80) 98 Nasal Cannula 3.00 08/05/18 21:00 85 15 111/62 (78) 95 Nasal Cannula 3.00 08/05/18 20:00 Nasal Cannula 3.00 08/05/18 20:00 82 16 103/61 (75) 96 Nasal Cannula 3.00 08/05/18 19:00 101 08/05/18 19:00 101 33 125/95 (105) 95 Nasal Cannula 3.00 08/05/18 18:00 85 14 116/60 (78) 96 Nasal Cannula 3.00 08/05/18 17:00 92 11 114/65 (81) 95 Nasal Cannula 3.00 08/05/18 16:08 99.1 Nasal Cannula 3.00 08/05/18 16:02 88 Room Air 08/05/18 16:00 95 19 88/56 (67) 89 Nasal Cannula 3.00 08/05/18 16:00 Nasal Cannula 3.00 08/05/18 15:00 87 47 100/63 (75) 95 Nasal Cannula 4.00 08/05/18 14:00 91 41 102/65 (77) 97 Nasal Cannula 4.00 08/05/18 13:00 87 08/05/18 13:00 87 14 114/71 (85) 97 Nasal Cannula 4.00 08/05/18 12:00 91 08/05/18 12:00 92 13 119/69 (86) 88 Nasal Cannula 4.00 08/05/18 11:55 Nasal Cannula 4.00 08/05/18 11:55 99.0 95 19 119/68 (85) 93 Nasal Cannula 4.00 08/05/18 11:35 86 18 113/67 99 Non Rebreather 15.00 08/05/18 11:30 98 18 135/77 96 Non Rebreather 15.00 08/05/18 11:25 104 20 140/83 99 Non Rebreather 15.00 08/05/18 11:20 105 20 135/83 99 Non Rebreather 15.00 08/05/18 11:15 110 26 149/90 99 Non Rebreather 15.00 08/05/18 11:10 111 24 147/78 98 Non Rebreather 15.00 08/05/18 11:05 109 24 150/88 93 Non Rebreather 15.00 08/05/18 11:00 115 25 205/94 87 Non Rebreather 15.00 08/05/18 10:45 94 16 119/74 96 Nasal Cannula 3.00 08/05/18 10:40 83 16 124/64 98 Nasal Cannula 3.00 08/05/18 10:35 84 18 115/62 98 Nasal Cannula 3.00 08/05/18 10:30 82 19 113/58 98 Nasal Cannula 3.00 08/05/18 10:25 80 19 113/63 97 Nasal Cannula 3.00 08/05/18 10:23 81 20 113/58 97 Nasal Cannula 3.00 08/05/18 08:10 99 18 116/106 93 Room Air I & O 08/06/18 07:00 Intake Total 850 ml Output Total 675 ml Balance 175 ml Height & Weight Height: 6'1.00" Weight: 184lbs. 4.0oz. 83.179431su; 24.3 BMI Method:Stated General Appearance: No Apparent Distress, WD/WN HEENT: PERRL/EOMI, Moist Mucous Membranes Neck: Non Tender, Supple Respiratory: Lungs Clear, No Accessory Muscle Use, No Respiratory Distress, Other (evacuator box in place) Cardiovascular: Regular Rate, Rhythm, No Murmur Capillary Refill: Less Than 3 Seconds Extremity: Normal Capillary Refill, No Calf Tenderness Neurologic/Psychiatric: Alert, Oriented x3, Normal Mood/Affect Skin: Normal Color, Warm/Dry Lymphatic: No Adenopathy Results Lab Laboratory Tests 08/05/18 08:10 08/05/18 13:10 08/06/18 03:27 Assessment/Plan Assessment/Plan Acute iatrogenic pneumothorax s/p anterior chest tube placement with hypoxia -Oxygen Lung mass s/p CT bx -Await cytology results COPD hx -SVNs, Advair HX CAD Hx of HTN, hypercholesterolemia DVT ppx -Lovenox -SCDs Hx of [place] HX of CHF with EF 40-45% Tobacco use -Education Will transfer pt to 4th floor and continue to monitor chest tube. ANDRÉS MCCABE DO Aug 06, 2018 06:00
--- NOTE | 2018-08-06 07:58 | Progress Note-Hospitalist ---
Subjective HPI/CC On Admission Date Seen by Provider: Aug 06, 2018 Time Seen by Provider: 07:53 Pt is a 63yoCM with a PMH of COPD, CAD s/p stenting, HLD who was direct admitted following a CT guided biopsy of a lung nodule due to a pneumothorax. Dr Garcia placed chest tube for evacuation. He denies any complaints at this time and specifically has no chest pain or shortness of breath. He was feeling well prior to his admission today. Subjective/Events-last exam Pt reports doing well. No complaints or concerns. Objective Exam Vital Signs Vital Signs Date Time Temp Pulse Resp B/P (MAP) Pulse Ox O2 Delivery O2 Flow Rate FiO2 08/06/18 07:00 89 21 105/73 (84) 94 Nasal Cannula 2.00 08/06/18 04:00 98.6 Capillary Refill : Less Than 3 Seconds General Appearance: No Apparent Distress, WD/WN Respiratory: Lungs Clear, No Respiratory Distress Cardiovascular: Regular Rate, Rhythm, No Murmur Gastrointestinal: Normal Bowel Sounds, Soft Neurologic/Psychiatric: Alert, Oriented x3 Results/Procedures Lab Laboratory Tests 08/05/18 08:10 08/05/18 13:10 08/06/18 03:27 Patient resulted labs reviewed. Imaging: Reviewed Imaging Films, Reviewed Imaging Report Assessment/Plan Assessment and Plan Assess & Plan/Chief Complaint Pneumothorax Diagnosis/Problems Diagnosis/Problems (1) Pneumothorax after biopsy Status: Acute Assessment & Plan: Chest tube in place Management by Dr Garcia No signs of respiratory distress CXR shows improvement- formal read still pending (2) COPD (chronic obstructive pulmonary disease) Status: Chronic Assessment & Plan: No s/s of exacerbation Resume home meds Qualifiers: COPD type: unspecified COPD Qualified Codes: J44.9 - Chronic obstructive pulmonary disease, unspecified (3) Lung mass Assessment & Plan: Underwent biopsy today Await results (4) CAD (coronary artery disease) Status: Chronic Assessment & Plan: Follows with Dr Talamantes History of [place] 2-3 years ago Continue home meds Qualifiers: Coronary Disease-Associated Artery/Lesion type: [place] artery [place] vs. transplanted heart: [place] heart Associated angina: without angina Qualified Codes: I25.10 - Atherosclerotic heart disease of [place] coronary artery without angina pectoris Clinical Quality Measures DVT/VTE Risk/Contraindication: Risk Factor Score Per Nursin RFS Level Per Nursing on Admit: 3=High KELSIE MOYER MD Aug 06, 2018 07:58
[2018-08-06] MEDS: ASPIRIN E.C. 81 MG (ECOTRIN) TAB PO SCH (08:54)
[2018-08-06] MEDS: meTOproloL SUCCINATE 50 MG (TOPROL XL) TAB PO SCH (08:54)
[2018-08-06] MEDS: ATORVASTATIN 40 MG (LIPITOR) TABLET PO SCH (08:54)
[2018-08-06] MEDS: lisINopril 5 MG (PRINIVIL) TABLET PO SCH (08:54)
[2018-08-06] MEDS: MONTELUKAST 10 MG (SINGULAIR) TAB PO SCH (08:55)
[2018-08-06] MEDS: KCL 10 MEQ TAB (MICRO K) PO SCH (08:55)
[2018-08-06] MEDS ORDERED: MONTELUKAST 10 MG (SINGULAIR) TAB PO SCH (09:00)
[2018-08-06] MEDS ORDERED: meTOproloL SUCCINATE 50 MG (TOPROL XL) TAB PO SCH (09:00)
[2018-08-06] MEDS ORDERED: NON-FORMULARY MEDICATION 1 EA EA (Fluticasone/Umeclidin/Vilanter (Trelegy Ellipta 100-62.5 IH SCH (09:00)
[2018-08-06] MEDS: RT-ADVAIR HFA 115/21 MCG PER PUFF IH SCH ×2 (09:59→19:13)
--- NOTE | 2018-08-06 10:13 | Diagnostic Imaging Report ---
Portable erect AP chest at 3:44 Indication: Dyspnea. The heart size is within normal limits and stable when compared to 08/05/2018. The small caliber chest tube on the left seen previously is again evident. There is no clearance for a pneumothorax. The vague area of increased density along the periphery of the left mid and upper lung seen previously has diminished somewhat. The right lung remains clear. The mediastinum is not widened. The osseous structures are intact. Impression: The appearance of the chest has improved since the prior exam as the abnormal density along the periphery of the left midlung and left upper lung is somewhat less prominent. A followup study would be recommended for continued evaluation. Dictated by: Dictated on workstation # [id number]
[2018-08-06] MEDS: FUROSEMIDE 40 MG (LASIX) TAB PO SCH (10:25)
[2018-08-06] MEDS: ENOXAPARIN 40 MG/0.4 ML (LOVENOX) SYR SC SCH (12:50)
[2018-08-06] MEDS: LORATADINE (CLARITIN) 10 MG TAB PO SCH (20:24)
[2018-08-06] MEDS ORDERED: ACETAMINOPHEN 500 MG TAB (TYLENOL) PO PRN (22:00)
[2018-08-07 00:40] VITALS: BP 138/69
[2018-08-07] MEDS: RT-ALBUTEROL/IPRATROPIUM 3 ML (DUONEB) VIAL IH SCH ×4 (02:24→20:22)
[2018-08-07 04:08] VITALS: BP 124/57
--- NOTE | 2018-08-07 07:00 | Pulmonary Progress Note ---
Subjective Time Seen by a Provider: 09:28 Subjective/Events-last exam Pt doing well. CXR shows no PTX. Sepsis Event Evaluation Height, Weight, BMI Height: 6'1.00" Weight: 181lbs. 2.8oz. 82.085885pr; 24.3 BMI Method:Stated Exam Exam Vital Signs Date Time Temp Pulse Resp B/P (MAP) Pulse Ox O2 Delivery O2 Flow Rate FiO2 08/07/18 04:08 98.9 89 16 124/57 (79) 94 Nasal Cannula 2.00 08/07/18 02:24 91 Nasal Cannula 2.00 08/07/18 00:40 98.8 93 20 138/69 (92) 94 Nasal Cannula 2.00 08/06/18 21:00 Nasal Cannula 2.00 08/06/18 20:00 97.9 101 16 136/76 (96) 94 Nasal Cannula 2.00 08/06/18 19:13 95 Nasal Cannula 2.00 08/06/18 15:45 98.2 95 16 117/59 (78) 93 Nasal Cannula 2.00 08/06/18 15:25 Nasal Cannula 2.00 08/06/18 13:04 92 Nasal Cannula 2.00 08/06/18 12:00 98.2 90 20 132/67 (88) 94 Nasal Cannula 2.00 08/06/18 10:37 Nasal Cannula 2.00 08/06/18 10:00 85 30 120/79 (93) 94 Nasal Cannula 2.00 08/06/18 10:00 Nasal Cannula 2.00 08/06/18 09:00 87 19 120/71 (87) 95 Nasal Cannula 2.00 08/06/18 08:00 86 18 115/62 (79) 95 Nasal Cannula 2.00 08/06/18 07:55 98.5 Nasal Cannula 2.00 08/06/18 07:55 Nasal Cannula 2.00 08/06/18 07:00 89 21 105/73 (84) 94 Nasal Cannula 2.00 08/06/18 07:00 89 I & O 08/07/18 07:00 Intake Total 2550 ml Output Total 1250 ml Balance 1300 ml Height & Weight Height: 6'1.00" Weight: 181lbs. 2.8oz. 82.606503iw; 24.3 BMI Method:Stated General Appearance: No Apparent Distress, WD/WN HEENT: PERRL/EOMI, Moist Mucous Membranes Neck: Non Tender, Supple Respiratory: Lungs Clear, No Respiratory Distress Cardiovascular: Regular Rate, Rhythm, No Murmur Capillary Refill: Less Than 3 Seconds Extremity: Normal Capillary Refill, No Calf Tenderness Neurologic/Psychiatric: Alert, Oriented x3 Skin: Normal Color, Warm/Dry Lymphatic: No Adenopathy Results Lab Laboratory Tests 08/05/18 08:10 08/05/18 13:10 08/06/18 03:27 Assessment/Plan Assessment/Plan Acute iatrogenic pneumothorax s/p anterior chest tube placement with hypoxia -Oxygen -D/C chest tube - repeat CXR in 4 hrs and again in AM. -If pt still looks good in AM will be ok for discharge home. -CXR is pending Lung mass s/p CT bx -Await cytology results COPD hx -SVNs, Advair HX CAD Hx of HTN, hypercholesterolemia DVT ppx -Lovenox -SCDs Hx of [place] HX of CHF with EF 40-45% Tobacco use -Education ANDRÉS MCCABE DO Aug 07, 2018 07:00
--- NOTE | 2018-08-07 07:27 | Diagnostic Imaging Report ---
INDICATION: Pneumothorax. Comparison is made with prior examination from 08/06/18. FINDINGS: There is air-trapping compatible with COPD. Heart size is normal. There is a patchy left basilar infiltrate. There is no pleural effusion or pneumothorax. The mediastinum is unremarkable. IMPRESSION: COPD with a patchy left basilar infiltrate. Dictated by: Dictated on workstation # [id number]
[2018-08-07 07:50] VITALS: BP 110/61
[2018-08-07] MEDS: RT-ADVAIR HFA 115/21 MCG PER PUFF IH SCH ×2 (08:19→20:22)
[2018-08-07] MEDS: MONTELUKAST 10 MG (SINGULAIR) TAB PO SCH (08:24)
[2018-08-07] MEDS: meTOproloL SUCCINATE 50 MG (TOPROL XL) TAB PO SCH (08:24)
[2018-08-07] MEDS: FUROSEMIDE 40 MG (LASIX) TAB PO SCH (08:24)
[2018-08-07] MEDS: ASPIRIN E.C. 81 MG (ECOTRIN) TAB PO SCH (08:24)
[2018-08-07] MEDS: ATORVASTATIN 40 MG (LIPITOR) TABLET PO SCH (08:24)
[2018-08-07] MEDS: lisINopril 5 MG (PRINIVIL) TABLET PO SCH (08:24)
[2018-08-07] MEDS: KCL 10 MEQ TAB (MICRO K) PO SCH (08:24)
--- NOTE | 2018-08-07 09:47 | Physician Query Clarification ---
PQ-CHF Specificity The medical record reflects the following clinical scenario: History/Risk Factors: Hypertension Congestive heart failure history Clinical Findings: CHF history with EF 40-45% per Dr. Garcia's consult. Treatment: 40 mg lasix daily. Question: Can you further specify the acuity &/or type of CHF per the clinical indicators above? Please document a response below PHYSICIAN RESPONSE Acuity: Chronic Type: Systolic In responding to this query, please exercise your independent professional judgment. The purpose of this communication is to more accurately reflect the complexity of your patients condition. The fact that a question is asked does not imply that any particular answer is desired or expected. Thank you for your timely response to this clarification. Requestors name: Ruth Samaniego [facility], [facility] Phone # [phone] or [phone] THIS PHYSICIAN QUERY FORM IS A PERMANENT PART OF THE MEDICAL RECORD RUTH SAMANIEGO Aug 07, 2018 09:47 KELSIE MOYER MD Aug 07, 2018 16:44
[2018-08-07 11:53] VITALS: BP 114/61
[2018-08-07] MEDS: ENOXAPARIN 40 MG/0.4 ML (LOVENOX) SYR SC SCH (11:53)
--- NOTE | 2018-08-07 14:39 | Progress Note-Hospitalist ---
Subjective HPI/CC On Admission Date Seen by Provider: Aug 07, 2018 Time Seen by Provider: 14:37 Pt is a 63yoCM with a PMH of COPD, CAD s/p stenting, HLD who was direct admitted following a CT guided biopsy of a lung nodule due to a pneumothorax. Dr Garcia placed chest tube for evacuation. He denies any complaints at this time and specifically has no chest pain or shortness of breath. He was feeling well prior to his admission today. Subjective/Events-last exam Pt reports doing well. No complaints. Chest tube out. Objective Exam Vital Signs Vital Signs Date Time Temp Pulse Resp B/P (MAP) Pulse Ox O2 Delivery O2 Flow Rate FiO2 08/07/18 11:53 98.0 84 20 114/61 (78) 95 Nasal Cannula 2.00 Capillary Refill : Less Than 3 SecondsLess Than 3 Seconds General Appearance: No Apparent Distress, WD/WN Respiratory: Lungs Clear, No Respiratory Distress Cardiovascular: Regular Rate, Rhythm, No Murmur Neurologic/Psychiatric: Alert, Oriented x3 Results/Procedures Lab Patient resulted labs reviewed. Imaging: Reviewed Imaging Films, Reviewed Imaging Report Assessment/Plan Assessment and Plan Assess & Plan/Chief Complaint Pneumothorax Diagnosis/Problems Diagnosis/Problems (1) Pneumothorax after biopsy Status: Acute Assessment & Plan: Chest tube DC-ed today Management by Dr Garcia No signs of respiratory distress Likely DC tomorrow pending CXR (2) COPD (chronic obstructive pulmonary disease) Status: Chronic Assessment & Plan: No s/s of exacerbation Resume home meds Qualifiers: COPD type: unspecified COPD Qualified Codes: J44.9 - Chronic obstructive pulmonary disease, unspecified (3) Lung mass Assessment & Plan: Underwent biopsy 08/05 Await results (4) CAD (coronary artery disease) Status: Chronic Assessment & Plan: Follows with Dr Talamantes History of [place] 2-3 years ago Continue home meds Qualifiers: Coronary Disease-Associated Artery/Lesion type: [place] artery [place] vs. transplanted heart: [place] heart Associated angina: without angina Qualified Codes: I25.10 - Atherosclerotic heart disease of [place] coronary artery without angina pectoris Clinical Quality Measures DVT/VTE Risk/Contraindication: Risk Factor Score Per Nursin RFS Level Per Nursing on Admit: 3=High KELSIE MOYER MD Aug 07, 2018 14:39
--- NOTE | 2018-08-07 15:25 | Diagnostic Imaging Report ---
INDICATION: Left chest tube removal. TIME OF EXAMINATION: 2:58 PM. FINDINGS: The left chest tube has been removed. No residual pneumothorax is identified. The lungs are hyperinflated, consistent with COPD. IMPRESSION: No evidence of residual pneumothorax. Dictated by: Dictated on workstation # [id number]
[2018-08-07 15:55] VITALS: BP 136/74
[2018-08-07 20:00] VITALS: BP 123/64
[2018-08-07] MEDS: LORATADINE (CLARITIN) 10 MG TAB PO SCH (20:34)
[2018-08-08 00:26] VITALS: BP 116/58
[2018-08-08] MEDS: RT-ALBUTEROL/IPRATROPIUM 3 ML (DUONEB) VIAL IH SCH ×2 (02:55→08:18)
[2018-08-08 04:00] VITALS: BP 139/76
[2018-08-08 08:00] VITALS: BP 108/57
[2018-08-08] MEDS: RT-ADVAIR HFA 115/21 MCG PER PUFF IH SCH (08:18)
--- NOTE | 2018-08-08 08:18 | Diagnostic Imaging Report ---
INDICATION: Post chest tube removal. TECHNIQUE: Single view chest 04:04 a.m. CORRELATION STUDY: 08/07/2018. FINDINGS: Heart size and vasculature is stable. Lung gonzalez are hyperinflated. Prominent interstitial markings disproportionate and greater involving left lung compared to the right lung are present. These may be slightly increased from prior study. Suspect for increasing atelectasis or less likely infiltrate of left lung base. No appreciable pneumothorax. IMPRESSION: 1. Prominent interstitial markings left greater than right appearing slightly increased on the left. This could reflect a component of underlying edema. Additional minimal atelectasis or infiltrate left lung base along with small left pleural effusion. Dictated by: Dictated on workstation # [id number]
[2018-08-08] MEDS: lisINopril 5 MG (PRINIVIL) TABLET PO SCH (08:29)
--- NOTE | 2018-08-08 08:29 | Discharge Summary-Hospitalist ---
Diagnosis/Chief Complaint Date of Admission Aug 05, 2018 at 11:48 am Date of Discharge Discharge Date: Aug 08, 2018 Admission Diagnosis Pneumothorax Discharge Diagnosis (1) Pneumothorax after biopsy Status: Acute Assessment & Plan: Chest tube DC-ed today Management by Dr Garica No signs of respiratory distress Likely DC tomorrow pending CXR (2) COPD (chronic obstructive pulmonary disease) Status: Chronic Assessment & Plan: No s/s of exacerbation Resume home meds (3) Lung mass Assessment & Plan: Underwent biopsy 08/05 Await results (4) CAD (coronary artery disease) Status: Chronic Assessment & Plan: Follows with Dr Talamantes History of [place] 2-3 years ago Continue home meds Discharge Summary Procedures/Consulations Dr Garcia- Pul Discharge Physical Exam Allergies: Coded Allergies: No Known Drug Allergies (Unverified , 07/14/18) Vitals & I&Os Vital Signs Date Time Temp Pulse Resp B/P (MAP) Pulse Ox O2 Delivery O2 Flow Rate FiO2 08/08/18 10:24 87 20 108/57 93 Nasal Cannula 2.00 08/08/18 08:00 96.9 General Appearance: No Apparent Distress, WD/WN Respiratory: Lungs Clear, No Respiratory Distress Cardiovascular: Regular Rate, Rhythm, No Murmur Neurologic/Psychiatric: Alert, Oriented x3, Normal Mood/Affect Hospital Course Pt was admitted for an iatrogenic pneumothorax following CT guided lung biopsy. Chest tube was placed by Dr Garcia and his pneumothorax resolved quickly. He chest tube was DC-ed on 08/07 and he was stable with stable imaging for 24 hours following. He was discharged home in improved condition to follow up with Dr Garcia for biopsy results. Labs (last 24 hrs) Microbiology 08/05/18 MRSA Screen - Final, Complete MRSA not isolated Patient resulted labs reviewed. Imaging: Reviewed Imaging Films, Reviewed Imaging Report Discussion & Recommendations Discharge Planning: >30 minutes discharge planning Discharge Home Medications: Active Scripts Active Reported Albuterol Sulfate 2.5 Mg/3 Ml Vial.neb 2.5 Mg NEB QID PRN Aspirin EC (Aspirin) 81 Mg Tablet. 81 Mg PO DAILY Ventolin Hfa (Albuterol Sulfate) 18 Gm Hfa.aer.ad 2 Puff INH QID PRN Meloxicam 7.5 Mg Tablet 7.5 Mg PO DAILY PRN Montelukast Sodium 10 Mg Tablet 10 Mg PO DAILY Potassium Chloride 10 Meq Tablet.er 10 Meq PO DAILY Lasix (Furosemide) 40 Mg Tablet 40 Mg PO DAILY Trelegy Ellipta 100-62.5-25 (Fluticasone/Umeclidin/Vilanter) 1 Each Blst.w.dev 1 Puff IH DAILY Lisinopril 5 Mg Tablet 5 Mg PO DAILY Cetirizine HCl 10 Mg Tablet 10 Mg PO HS Metoprolol Succinate 50 Mg Tab.er.24h 50 Mg PO DAILY Atorvastatin Calcium 40 Mg Tablet 40 Mg PO DAILY Instructions to patient/family Please see electronic discharge instructions given to patient. Clinical Quality Measures DVT/VTE Risk/Contraindication: Risk Factor Score Per Nursin RFS Level Per Nursing on Admit: 3=High Problem Qualifiers (1) COPD (chronic obstructive pulmonary disease): COPD type: unspecified COPD Qualified Codes: J44.9 - Chronic obstructive pulmonary disease, unspecified (2) CAD (coronary artery disease): Coronary Disease-Associated Artery/Lesion type: [place] artery [place] vs. transplanted heart: [place] heart Associated angina: without angina Qualified Codes: I25.10 - Atherosclerotic heart disease of [place] coronary artery without angina pectoris KELSIE MOYER MD Aug 08, 2018 08:29
[2018-08-08] MEDS: FUROSEMIDE 40 MG (LASIX) TAB PO SCH (08:30)
[2018-08-08] MEDS: ATORVASTATIN 40 MG (LIPITOR) TABLET PO SCH (08:30)
[2018-08-08] MEDS: ASPIRIN E.C. 81 MG (ECOTRIN) TAB PO SCH (08:30)
[2018-08-08] MEDS: MONTELUKAST 10 MG (SINGULAIR) TAB PO SCH (08:30)
[2018-08-08] MEDS: meTOproloL SUCCINATE 50 MG (TOPROL XL) TAB PO SCH (08:30)
[2018-08-08] MEDS: KCL 10 MEQ TAB (MICRO K) PO SCH (08:30)
--- NOTE | 2018-08-08 08:50 | Pulmonary Progress Note ---
Subjective Time Seen by a Provider: 10:40 Subjective/Events-last exam pt feels improved. Sepsis Event Evaluation Height, Weight, BMI Height: 6'1.00" Weight: 173lbs. 14.0oz. 78.901226az; 24.3 BMI Method:Stated Exam Exam Vital Signs Date Time Temp Pulse Resp B/P (MAP) Pulse Ox O2 Delivery O2 Flow Rate FiO2 08/08/18 08:20 Nasal Cannula 2.00 08/08/18 08:18 93 Nasal Cannula 2.00 08/08/18 08:00 96.9 87 20 108/57 (74) 93 Nasal Cannula 2.00 08/08/18 04:00 98.6 88 18 139/76 (97) 94 Nasal Cannula 2.00 08/08/18 02:55 96 Nasal Cannula 2.00 08/08/18 00:26 99.3 84 18 116/58 (77) 96 Nasal Cannula 2.00 08/07/18 21:00 Nasal Cannula 2.00 08/07/18 20:28 Nasal Cannula 2.00 08/07/18 20:22 94 Nasal Cannula 2.00 08/07/18 20:00 98.6 86 18 123/64 (83) 95 Nasal Cannula 2.00 08/07/18 15:55 98.7 94 18 136/74 (94) 95 Nasal Cannula 2.00 08/07/18 15:14 93 Nasal Cannula 2.00 08/07/18 11:53 98.0 84 20 114/61 (78) 95 Nasal Cannula 2.00 I & O 08/08/18 07:00 Intake Total 2340 ml Balance 2340 ml Height & Weight Height: 6'1.00" Weight: 173lbs. 14.0oz. 78.891575xh; 24.3 BMI Method:Stated General Appearance: No Apparent Distress, WD/WN HEENT: PERRL/EOMI, Moist Mucous Membranes Neck: Non Tender, Supple Respiratory: Lungs Clear, No Respiratory Distress Cardiovascular: Regular Rate, Rhythm, No Murmur Capillary Refill: Less Than 3 Seconds Extremity: Normal Capillary Refill, No Calf Tenderness Neurologic/Psychiatric: Alert, Oriented x3 Skin: Normal Color, Warm/Dry Lymphatic: No Adenopathy Assessment/Plan Assessment/Plan Acute iatrogenic pneumothorax s/p anterior chest tube placement with hypoxia -Oxygen Lung mass s/p CT bx -Await cytology results COPD hx -SVNs, Advair HX CAD Hx of HTN, hypercholesterolemia DVT ppx -Lovenox -SCDs Hx of SD HX of CHF with EF 40-45% Tobacco use -Education PT is ok for discharge home from my standpoint. I will follow him as an out patient. ANDRÉS MCCABE DO Aug 08, 2018 08:50
[2018-08-08 10:24] VITALS: BP 108/57
--- OUTSIDE RECORDS SUMMARY | 2018-08-11 12:12 | XMS REPORT | Continuity of Care Document ---
Author Author [facility] Organization [facility] Address Unknown Phone Unavailable Allergies Active Description Code Type Severity Reaction Onset Reported/Identified Relationship to Patient Clinical Status Yes No Known Drug Allergies [id number] Drug Allergy Unknown N/A 07/14/2018 Medications There is no data. Problems Date Dx Coded Attending Type Code Diagnosis Diagnosed By 09/26/2016 Irlanda BRYANT MD Ot F17.210 NICOTINE DEPENDENCE, CIGARETTES, UNCOMPL 09/26/2016 Irlanda BRYANT MD Ot I21.19 STEMI INVOLVING OTH CORONARY ARTERY OF I 09/26/2016 Irlanda BRYANT MD Ot I25.10 ATHSCL HEART DISEASE OF [place] CORONARY 09/26/2016 Irlanda BRYANT MD Ot J44.9 CHRONIC OBSTRUCTIVE PULMONARY DISEASE, U 09/26/2016 Irlanda BRYANT MD Ot F17.210 NICOTINE DEPENDENCE, CIGARETTES, UNCOMPL 09/26/2016 Irlanda BRYANT MD Ot I21.19 STEMI INVOLVING OTH CORONARY ARTERY OF I 09/26/2016 Irlanda BRYANT MD Ot I25.10 ATHSCL HEART DISEASE OF [place] CORONARY 09/26/2016 Irlanda BRYANT MD Ot I25.5 ISCHEMIC CARDIOMYOPATHY 09/26/2016 Irlanda BRYANT MD Ot J44.9 CHRONIC OBSTRUCTIVE PULMONARY DISEASE, U 01/17/2017 Irlanda BRYANT MD Ot I21.3 ST ELEVATION (STEMI) MYOCARDIAL INFARCTI 01/17/2017 Irlanda BRYANT MD Ot I25.5 ISCHEMIC CARDIOMYOPATHY 01/17/2017 Irlanda BRYANT MD, Ot J44.9 CHRONIC OBSTRUCTIVE PULMONARY DISEASE, U 01/17/2017 Irlanad BRYANT MD Ot Z72.0 TOBACCO USE 02/16/2018 [...] Shortness of breath 06/17/2018 PAIGE GILBERTINE Leta RN CARDIOVASCULAR ICU Ot J30.2 OTHER SEASONAL ALLERGIC RHINITIS 06/17/2018 PAIGE GILBERTINE E RN CARDIOVASCULAR ICU Ot J44.9 CHRONIC OBSTRUCTIVE PULMONARY DISEASE, U 06/17/2018 PAIGE GILBERTINE E RN CARDIOVASCULAR ICU Ot M79.89 OTHER SPECIFIED SOFT TISSUE DISORDERS 06/17/2018 PAIGE GILBERTINE E RN CARDIOVASCULAR ICU Ot R06.00 DYSPNEA, UNSPECIFIED 06/17/2018 PAIGE GILBERTINE E RN CARDIOVASCULAR ICU Ot R09.02 HYPOXEMIA 06/17/2018 PAIGE GILBERTINE E RN CARDIOVASCULAR ICU Ot R53.83 OTHER FATIGUE 06/17/2018 PAIGE GILBERTINE E RN CARDIOVASCULAR ICU Ot Z72.0 TOBACCO USE 06/21/2018 PAIGE GILBERTINE Leta RN CARDIOVASCULAR ICU Ot J30.2 OTHER SEASONAL ALLERGIC RHINITIS 06/21/2018 PAIGE GILBERTINE E RN CARDIOVASCULAR ICU Ot J44.9 CHRONIC OBSTRUCTIVE PULMONARY DISEASE, U 06/21/2018 PAIGE GILBERTINE E RN CARDIOVASCULAR ICU Ot M79.89 OTHER SPECIFIED SOFT TISSUE DISORDERS 06/21/2018 PAIGE GILBERTINE Leta RN CARDIOVASCULAR ICU Ot R06.00 DYSPNEA, UNSPECIFIED 06/21/2018 PAIGE GILBERTINE Leta RN CARDIOVASCULAR ICU Ot R09.02 HYPOXEMIA 06/21/2018 PAIGE GILBERTINE E RN CARDIOVASCULAR ICU Ot R53.83 OTHER FATIGUE 06/21/2018 PAIGE GILBERTINE E RN CARDIOVASCULAR ICU Ot Z72.0 TOBACCO USE 07/13/2018 PAIGE GILBERTINE E RN CARDIOVASCULAR ICU Ot J30.2 OTHER SEASONAL ALLERGIC RHINITIS 07/13/2018 PAIGE GILBERTINE E RN CARDIOVASCULAR ICU Ot J30.2 OTHER SEASONAL ALLERGIC RHINITIS 07/13/2018 PAIGE GILBERTINE Leta RN CARDIOVASCULAR ICU Ot J44.9 CHRONIC OBSTRUCTIVE PULMONARY DISEASE, U 07/13/2018 PAIGE GILBERTINE E RN CARDIOVASCULAR ICU Ot M79.89 OTHER SPECIFIED SOFT TISSUE DISORDERS [...] NODULE 07/27/2018 ANDRÉS MCCABE DO Ot Z79.82 [facility] (CURRENT) USE OF ASPIRIN 07/27/2018 ANDRÉS MCCABE DO Ot Z79.899 OTHER DECORATION [facility]ER (CURRENT) DRUG THERAPY 07/27/2018 ANDRÉS MCCABE DO Ot F17.210 NICOTINE DEPENDENCE, CIGARETTES, UNCOMPL 07/27/2018 ANDRÉS MCCABE DO Ot J44.9 CHRONIC OBSTRUCTIVE PULMONARY DISEASE, U 07/27/2018 ANDRÉS MCCABE DO Ot R09.02 HYPOXEMIA 07/27/2018 ANDRÉS MCCABE DO Ot R79.89 OTHER SPECIFIED ABNORMAL FINDINGS OF BLO 07/27/2018 ANDRÉS MCCABE DO Ot R91.1 SOLITARY PULMONARY NODULE 07/27/2018 ANDRÉS MCCABE DO Ot Z79.82 [facility] (CURRENT) USE OF ASPIRIN 07/27/2018 ANDRÉS MCCABE DO Ot Z79.899 OTHER [facility] (CURRENT) DRUG THERAPY 07/30/2018 ANDRÉS MCCABE DO Ot F17.210 NICOTINE DEPENDENCE, CIGARETTES, UNCOMPL 07/30/2018 ANDRÉS MCCABE DO Ot J44.9 CHRONIC OBSTRUCTIVE PULMONARY DISEASE, U 07/30/2018 ANDRÉS MCCABE DO Ot R09.02 HYPOXEMIA 07/30/2018 ANDRÉS MCCABE DO Ot R79.89 OTHER SPECIFIED ABNORMAL FINDINGS OF BLO 07/30/2018 ANDRÉS MCCABE DO Ot R91.1 SOLITARY PULMONARY NODULE 07/30/2018 ANDRÉS MCCABE DO Ot Z79.82 [facility] (CURRENT) USE OF ASPIRIN 07/30/2018 ANDRÉS MCCABE DO Ot Z79.899 OTHER DECORATION CHECKER (CURRENT) DRUG THERAPY 08/05/2018 ANDRÉS MCCABE DO Ot R79.1 ABNORMAL COAGULATION PROFILE 08/05/2018 ANDRÉS MCCABE DO Ot R79.1 ABNORMAL COAGULATION PROFILE 08/05/2018 ANDRÉS MCCABE DO Ot R79.1 ABNORMAL COAGULATION PROFILE 08/06/2018 ANDRÉS MCCABE DO Ot R79.1 ABNORMAL COAGULATION PROFILE 08/06/2018 ANDRÉS MCCABE DO Ot R79.1 ABNORMAL COAGULATION PROFILE 08/06/2018 ANDRÉS MCCABE DO Ot R79.1 ABNORMAL COAGULATION PROFILE 08/06/2018 ANDRÉS MCCABE DO Ot R79.1 ABNORMAL COAGULATION PROFILE 08/07/2018 ANDRÉS MCCABE DO Ot F17.210 NICOTINE DEPENDENCE, CIGARETTES, UNCOMPL 08/07/2018 ANDRÉS MCCABE DO Ot J44.9 CHRONIC OBSTRUCTIVE PULMONARY DISEASE, U 08/07/2018 ANDRÉS MCCABE DO Ot R09.02 HYPOXEMIA 08/07/2018 ANDRÉS MCCABE DO Ot R79.89 OTHER SPECIFIED ABNORMAL FINDINGS OF BLO 08/07/2018 ANDRÉS MCCABE DO Ot R91.1 SOLITARY PULMONARY NODULE 08/07/2018 ANDRÉS MCCABE DO Ot Z79.82 [facility] (CURRENT) USE OF ASPIRIN 08/07/2018 ANDRÉS MCCABE DO Ot Z79.899 OTHER [facility] (CURRENT) DRUG THERAPY 08/07/2018 ANDRÉS MCCABE DO Ot R79.1 ABNORMAL COAGULATION PROFILE 08/07/2018 ANDRÉS MCCABE DO Ot R59.0 LOCALIZED ENLARGED LYMPH NODES 08/07/2018 ANDRÉS MCCABE DO Ot R91.8 OTHER NONSPECIFIC ABNORMAL FINDING OF NICKI 08/07/2018 ANDRÉS MCCABE DO Ot R94.8 ABNORMAL RESULTS OF FUNCTION STUDIES OF 08/07/2018 ANDRÉS MCCABE DO Ot R79.1 ABNORMAL COAGULATION PROFILE 08/07/2018 ANDRÉS MCCABE DO Ot E78.00 PURE HYPERCHOLESTEROLEMIA, UNSPECIFIED 08/07/2018 ANDRÉS MCCABE DO Ot F17.210 NICOTINE DEPENDENCE, CIGARETTES, UNCOMPL 08/07/2018 ANDRÉS MCCABE DO Ot I11.0 HYPERTENSIVE HEART DISEASE WITH HEART FA 08/07/2018 ANDRÉS MCCABE DO Ot I25.10 ATHSCL HEART DISEASE OF [place] CORONARY 08/07/2018 ANDRÉS MCCABE DO Ot I25.2 OLD MYOCARDIAL INFARCTION 08/07/2018 ANDRÉS MCCABE DO Ot I50.9 HEART FAILURE, UNSPECIFIED 08/07/2018 ANDRÉS MCCABE DO Ot J44.9 CHRONIC OBSTRUCTIVE PULMONARY DISEASE, U 08/07/2018 ANDRÉS MCCABE DO Ot J95.811 POSTPROCEDURAL PNEUMOTHORAX 08/07/2018 ANDRÉS MCCABE DO Ot M19.91 PRIMARY OSTEOARTHRITIS, UNSPECIFIED SITE 08/07/2018 ANDRÉS MCCABE DO Ot R91.8 OTHER NONSPECIFIC ABNORMAL FINDING OF NICKI 08/07/2018 ANDRÉS MCCABE DO Ot Z95.5 PRESENCE OF CORONARY ANGIOPLASTY IMPLANT 08/08/2018 ANDRÉS MCCABE DO Ot E78.00 PURE HYPERCHOLESTEROLEMIA, UNSPECIFIED 08/08/2018 ANDRÉS MCCABE DO Ot F17.210 NICOTINE DEPENDENCE, CIGARETTES, UNCOMPL 08/08/2018 ANDRÉS MCCABE DO Ot I11.0 HYPERTENSIVE HEART DISEASE WITH HEART FA 08/08/2018 ANDRÉS MCCABE DO Ot I25.10 ATHSCL HEART DISEASE OF [place] CORONARY 08/08/2018 ANDRÉS MCCABE DO Ot I25.2 OLD MYOCARDIAL INFARCTION 08/08/2018 ANDRÉS MCCABE DO Ot I50.9 HEART FAILURE, UNSPECIFIED 08/08/2018 ANDRÉS MCCABE DO Ot J44.9 CHRONIC OBSTRUCTIVE PULMONARY DISEASE, U 08/08/2018 ANDRÉS MCCABE DO Ot J95.811 POSTPROCEDURAL PNEUMOTHORAX 08/08/2018 ANDRÉS MCCABE DO Ot M19.91 PRIMARY OSTEOARTHRITIS, UNSPECIFIED SITE 08/08/2018 ANDRÉS MCCABE DO Ot R91.8 OTHER NONSPECIFIC ABNORMAL FINDING OF NICKI 08/08/2018 ANDRÉS MCCABE DO M Ot Z95.5 PRESENCE OF CORONARY ANGIOPLASTY IMPLANT 08/11/2018 ANDRÉS MCCABE DO Ot E78.00 PURE HYPERCHOLESTEROLEMIA, UNSPECIFIED 08/11/2018 ANDRÉS MCCABE DO Ot F17.210 NICOTINE DEPENDENCE, CIGARETTES, UNCOMPL 08/11/2018 MARCO MCCABE DOSON M Ot I11.0 HYPERTENSIVE HEART DISEASE WITH HEART FA 08/11/2018 ANDRÉS MCCABE DO Ot I25.10 ATHSCL HEART DISEASE OF [place] CORONARY 08/11/2018 ANDRÉS MCCABE DO M Ot I25.2 OLD MYOCARDIAL INFARCTION 08/11/2018 ANDRÉS MCCABE DO M Ot I50.9 HEART FAILURE, UNSPECIFIED 08/11/2018 ANDRÉS MCCABE DO M Ot J44.9 CHRONIC OBSTRUCTIVE PULMONARY DISEASE, U 08/11/2018 ANDRÉS MCCABE DO Ot J95.811 POSTPROCEDURAL PNEUMOTHORAX 08/11/2018 ANDRÉS MCCABE DO Ot M19.91 PRIMARY OSTEOARTHRITIS, UNSPECIFIED SITE 08/11/2018 ANDRÉS MCCABE DO Ot R91.8 OTHER NONSPECIFIC ABNORMAL FINDING OF NICKI 08/11/2018 ANDRÉS MCCABE DO Ot Z95.5 PRESENCE OF CORONARY ANGIOPLASTY IMPLANT 08/11/2018 ANDRÉS MCCABE DO Ot E78.00 PURE HYPERCHOLESTEROLEMIA, UNSPECIFIED 08/11/2018 ANDRÉS MCCABE DO Ot F17.210 NICOTINE DEPENDENCE, CIGARETTES, UNCOMPL 08/11/2018 ANDRÉS MCCABE DO Ot I11.0 HYPERTENSIVE HEART DISEASE WITH HEART FA 08/11/2018 ANDRÉS MCCABE DO M Ot I25.10 ATHSCL HEART DISEASE OF [place] CORONARY 08/11/2018 ANDRÉS MCCABE DO M Ot I25.2 OLD MYOCARDIAL INFARCTION 08/11/2018 ANDRÉS MCCABE DO M Ot I50.9 HEART FAILURE, UNSPECIFIED 08/11/2018 ANDRÉS MCCABE DO M Ot J44.9 CHRONIC OBSTRUCTIVE PULMONARY DISEASE, U 08/11/2018 ANDRÉS MCCABE DO, Ot J95.811 POSTPROCEDURAL PNEUMOTHORAX 08/11/2018 ANDRÉS MCCABE DO, Ot M19.91 PRIMARY OSTEOARTHRITIS, UNSPECIFIED SITE 08/11/2018 ANDRÉS MCCABE DO Ot R91.8 OTHER NONSPECIFIC ABNORMAL FINDING OF NICKI 08/11/2018 ANDRÉS MCCABE DO Ot Z95.5 PRESENCE OF CORONARY ANGIOPLASTY IMPLANT Procedures Code Description Performed By Performed On [id number] DILATION OF 1 COR ART WITH DRUG-ELUT INT 09/24/2016 [id number] MEASURE OF CARDIAC SAMPL PRESSURE, L H 09/24/2016 [id number] FLUOROSCOPY OF MULT COR ART USING L OSM 09/24/2016 [id number] FLUOROSCOPY OF LEFT HEART USING LOW OSMO 09/24/2016 [id number] EXCISION OF LEFT UPPER LUNG LOBE, PERC A 08/05/2018 [id number] DRAINAGE OF L PLEURAL CAV WITH DRAIN DEV 08/05/2018 Results Test Result Range Complete blood count [...] in bronchial specimen by aerobe culture SEE [facility] FTX;REPORTABLE >10,000 CFU/ML, BETA LACTAMASE NEGATIVE NR RML Sensitivity Panel - 07/15/18 08:30 Gentamicin [...] FUNGUS SPUTUM FLUID TISSUE - 07/15/18 08:30 QUANTITY OF GROWTH . NRG FTX;REPORTABLE STERILE (NON-SPORULATING DEMATIACEOUS ) NRG C FUNGUS SPUTUM FLUID TISSUE [id number] NRG Automated blood complete blood count (hemogram) [...] poor plasma bycoagulation assay 31 s 24-35 Comprehensive metabolic panel - 08/05/18 13:10 Serum or plasma sodium measurement (moles/volume) 138 mmol/L 135-145 Serum or plasma potassium measurement (moles/volume) 4.6 mmol/L 3.6-5.0 Serum or plasma chloride measurement (moles/volume) 105 mmol/L 98-107 Carbon dioxide 25 mmol/L 21-32 Serum or plasma anion gap determination (moles/volume) 8 mmol/L 5-14 Serum or plasma urea nitrogen measurement (mass/volume) 15 mg/dL 7-18 Serum or plasma creatinine measurement (mass/volume) 0.80 mg/dL 0.60-1.30 Serum or plasma urea nitrogen/creatinine mass ratio 19 NRG Serum or plasma creatinine measurement with calculation of estimated glomerular filtration rate > NRG Serum or plasma glucose measurement (mass/volume) 98 mg/dL 70-105 Serum or plasma calcium measurement (mass/volume) 9.3 mg/dL 8.5-10.1 Serum or plasma total bilirubin measurement (mass/volume) 0.7 mg/dL 0.1-1.0 Serum or plasma alkaline phosphatase measurement (enzymatic activity/volume) 109 U/L 40-136 Serum or plasma aspartate aminotransferase measurement (enzymatic activity/ volume) 23 U/L 5-34 Serum or plasma alanine aminotransferase measurement (enzymatic activity/volume ) 26 U/L 0-55 Serum or plasma protein measurement (mass/volume) 7.3 g/dL 6.4-8.2 Serum or plasma albumin measurement (mass/volume) 3.9 g/dL 3.2-4.5 CALCIUM CORRECTED 9.4 mg/dL 8.5-10.1 Serum or plasma phosphate measurement (mass/volume) - 08/05/18 13:10 Serum or plasma phosphate measurement (mass/volume) 3.2 mg/dL 2.3-4.7 Magnesium - 08/05/18 13:10 Magnesium 2.0 mg/dL 1.8-2.4 Methicillin resistant Staphylococcus aureus (MRSA) screening culture - 15:10 Methicillin resistant Staphylococcus aureus (MRSA) screening culture NEG NRG Complete blood count (CBC) with automated white blood cell (WBC) differential - 08/06/18 03:27 Blood leukocytes automated count (number/volume) 8.8 10*3/uL 4.3-11.0 Blood erythrocytes automated count (number/volume) 4.09 10*6/uL 4.35-5.85 Venous blood hemoglobin measurement (mass/volume) 11.9 g/dL 13.3-17.7 Blood hematocrit (volume fraction) 37 % 40-54 Automated erythrocyte mean corpuscular volume 90 [foz_us] 80-99 Automated erythrocyte mean corpuscular hemoglobin (mass per erythrocyte) 29 pg 25-34 Automated erythrocyte mean corpuscular hemoglobin concentration measurement ( mass/volume) 32 g/dL 32-36 Automated erythrocyte distribution width ratio 15.1 % 10.0-14.5 Automated blood platelet count (count/volume) 230 10*3/uL 130-400 Automated blood platelet mean volume measurement 9.2 [foz_us] 7.4-10.4 Automated blood neutrophils/100 leukocytes 68 % 42-75 Automated blood lymphocytes/100 leukocytes 15 % 12-44 Blood monocytes/100 leukocytes 14 % 0-12 Automated blood eosinophils/100 leukocytes 3 % 0-10 Automated blood basophils/100 leukocytes 1 % 0-10 Blood neutrophils automated count (number/volume) 6.0 10*3 1.8-7.8 Blood lymphocytes automated count (number/volume) 1.4 10*3 1.0-4.0 Blood monocytes automated count (number/volume) 1.2 10*3 0.0-1.0 Automated eosinophil count 0.3 10*3/uL 0.0-0.3 Automated blood basophil count (count/volume) 0.0 10*3/uL 0.0-0.1 Whole blood basic metabolic panel - 08/06/18 03:27 Serum or plasma sodium measurement (moles/volume) 138 mmol/L 135-145 Serum or plasma potassium measurement (moles/volume) 4.0 mmol/L 3.6-5.0 Serum or plasma chloride measurement (moles/volume) 106 mmol/L 98-107 Carbon dioxide 22 mmol/L 21-32 Serum or plasma anion gap determination (moles/volume) 10 mmol/L 5-14 Serum or plasma urea nitrogen measurement (mass/volume) 14 mg/dL 7-18 Serum or plasma creatinine measurement (mass/volume) 0.85 mg/dL 0.60-1.30 Serum or plasma urea nitrogen/creatinine mass ratio 16 NRG Serum or plasma creatinine measurement with calculation of estimated glomerular filtration rate > NRG Serum or plasma glucose measurement (mass/volume) 114 mg/dL 70-105 Serum or plasma calcium measurement (mass/volume) 8.8 mg/dL 8.5-10.1 Serum or plasma phosphate measurement (mass/volume) - 08/06/18 03:27 Serum or plasma phosphate measurement (mass/volume) 2.9 mg/dL 2.3-4.7 Magnesium - 08/06/18 03:27 Magnesium 2.0 mg/dL 1.8-2.4 Encounters ACCT No. Visit Date/Time Discharge Status Pt. Type Provider Facility Loc./Unit Complaint [id number] 04/13/2018 10:44:19 04/13/2018 23:59:59 CLS Outpatient ALIRIO COELLO [id number] 03/23/2018 08:42:43 03/23/2018 23:59:59 CLS Outpatient ALIRIO COELLO [id number] 03/16/2018 09:47:44 03/16/2018 23:59:59 CLS Outpatient ALIRIO COELLO [id number] 02/18/2018 08:39:51 02/18/2018 23:59:59 CLS Outpatient ALIRIO COELLO [id number] 02/16/2018 09:40:46 02/16/2018 23:59:59 CLS Outpatient ALIRIO COELLO [id number] 01/26/2018 10:30:36 01/26/2018 23:59:59 CLS Outpatient ALIRIO COELLO [id number] 12/17/2017 12:49:45 12/17/2017 23:59:59 CLS Outpatient ALIRIO COELLO [id number] 10/23/2017 09:49:30 10/23/2017 23:59:59 CLS Outpatient ALIRIO COELLO [id number] 10/23/2017 09:00:48 10/23/2017 23:59:59 CLS Outpatient ALIRIO COELLO [id number] 11/29/2016 07:31:17 11/29/2016 23:59:59 CLS Outpatient ALIRIO COELLO [id number] 10/01/2016 13:40:15 10/01/2016 23:59:59 CLS Outpatient ALIRIO COELLO [id number] 08/05/2018 11:48:00 08/08/2018 10:22:00 DIS Inpatient ANDRÉS MCCABE DO [facility] 4TH LUNG MASS [id number] 07/20/2018 08:22:00 07/20/2018 23:59:59 CLS Outpatient NICOLE GILBERT APRN [facility] RT COPD [id number] 07/15/2018 06:50:00 07/15/2018 10:00:00 DIS Outpatient ANDRÉS MCCABE DO [facility] ENDO LUNG MASS, TOBACCO USE, DYSPNEA, COPD [id number] 07/14/2018 10:01:00 07/14/2018 23:59:59 CLS Outpatient ANDRÉS MCCABE DO [facility] RAD LUNG MASS [id number] 07/14/2018 06:43:00 07/14/2018 12:51:00 DIS Outpatient ANDRÉS MCCABE DO [facility] PREOP EBUS [id number] 07/13/2018 08:03:00 07/13/2018 23:59:59 CLS Outpatient NICOLE GILBERT APRN [facility] RAD COPD,DYSPNEA,LEG SWELLING,HYPOXEMIA REQUIRING SUPP [id number] 06/15/2018 10:47:00 06/15/2018 23:59:59 CLS Outpatient NICOLE GILBERT APRN [facility] RT J44.9 [id number] 10/24/2017 10:31:00 10/24/2017 23:59:59 CLS Preadmit Irlanda BRYANT MD [facility] CARD I25.10 [id number] 12/30/2016 10:51:00 12/30/2016 23:59:59 CLS Outpatient Irlanda BRYANT MD [facility] CARD COPD,CARDIOMYOPATHY, ISCHEMIC,STEMI,TOBACCO USE [id number] 09/24/2016 04:47:00 09/26/2016 16:25:00 DIS Inpatient Irlanda BRYANT MD [facility] ICU ACUTE MYOCARDIAL INFARCTION OF INFERIOR WALL [id number] 02/20/2018 12:47:00 Document Registration [id number] 02/16/2018 09:49:00 Document Registration [id number] 09/24/2016 23:00:00 09/24/2016 23:59:59 CLS Outpatient DOLLY KHAN [facility]
== END 2018-08-08 10:22 | disposition home or self-care (01) | DRG 200 ==
LOC: RAD 07:49 → ICU 11:48 → OBSVTOIN 11:48 → INTOOBSV 11:48 → UNDOADMOB 11:48 → ICU 11:48 → 4TH 08-06 10:20 → ICU 08-06 10:20 → UNDODISIN 08-08 10:22
PROVIDERS: ADMIT Internal Medicine Critical Care Medicine; ATTEND Internal Medicine Critical Care Medicine
PROC: 0W9B30Z Drainage of Left Pleural Cavity with Drainage Device, Percutaneous Approach (ICD-10-PCS; principal; 2018-08-05)
PROC: 0BBG3ZX Excision of Left Upper Lung Lobe, Percutaneous Approach, Diagnostic (ICD-10-PCS; 2018-08-05)
DX: J95.811 Postprocedural pneumothorax (principal); R91.8 Other nonspecific abnormal finding of lung field; I11.0 Hypertensive heart disease with heart failure; I50.22 Chronic systolic (congestive) heart failure; I25.10 Atherosclerotic heart disease of native coronary artery without angina pectoris; I25.2 Old myocardial infarction; J44.9 Chronic obstructive pulmonary disease, unspecified; E78.00 Pure hypercholesterolemia, unspecified; R00.0 Tachycardia, unspecified; M19.91 Primary osteoarthritis, unspecified site; F17.210 Nicotine dependence, cigarettes, uncomplicated; Z95.5 Presence of coronary angioplasty implant and graft
CPT/HCPCS: 36415; 71045; 71250; 77012; 80048; 80053; 83735; 84100; 85025; 85027; 85610; 85730; 87081; 88305; 88312; 94640; 94760; 99156

== ENCOUNTER → 2018-11-17 | Outpatient (CLI) | payer MEDICARE, OTHER ==
[~2018-11-17] MED LIST changes: -ALBU0.63 IH; -ASPI-983 PO; -ATOR40TA70 PO; -ATOR80TA76 PO; -CETI10TA17 PO; -CLOP75TA28 PO; -FLUT1BLS3 IH; -FURO-124 PO; +IOHEXOL 350 MG/ML 100 ML (OMNIPAQUE 350) VIAL IV ONE; -LISI-556 PO; -MELO-170 PO; -METO-370 PO; -METO-387 PO; +NS 100 ML (IVPB) BAG IV ONE; -POTA10TA10 PO; +RECEIVED CONTRAST (Hold Metformin) IV SCH; -RT-ALBUINH IH
[2018-11-17 09:26] LABS: BUN/CREATININE RATIO 15; CREATININE SERUM 0.94 MG/DL (0.60-1.30); GFR ESTIMATED > 60
--- NOTE | 2018-11-17 12:17 | Diagnostic Imaging Report ---
PROCEDURE: CT chest with contrast only. TECHNIQUE: Multiple contiguous axial images were obtained through the chest after administration of intravenous contrast. INDICATION: COPD. COMPARISON: CTA chest from 07/13/2018. Nuclear medicine FDG PET/CT from 07/14/2018. CT chest without contrast from 08/05/2018. FINDINGS: The nodule in the left lung apex measures 2.2 x 1.3 x 1.8 cm, most recently measured approximately 3.5 x 2.0 cm on the 08/05/2018 CT. The previously seen consolidation along the inferior margin of this nodule has resolved. No new pulmonary nodule or consolidation. No pleural effusion or pneumothorax. No endobronchial lesions. Moderate centrilobular emphysema. Normal heart size. No pericardial effusion. No mediastinal, hilar, or axillary lymphadenopathy. No suspicious osteoblastic or lytic lesions. No acute osseous findings. Well-circumscribed fluid attenuation lesion in the superior pole of the left kidney likely represents a benign cyst measuring up to 1.8 cm. IMPRESSION: Interval decreasing size of the nodule in the left lung apex. There has been resolution of the associated consolidation along the inferior margin of this nodule. There has also been resolution of the previously seen pneumothorax. Dictated by: Dictated on workstation # [id number]
== END ==
LOC: RAD 08:59
PROVIDERS: ATTEND Nurse Practitioner Family
DX: J44.9 Chronic obstructive pulmonary disease, unspecified (principal); J30.2 Other seasonal allergic rhinitis; M79.89 Other specified soft tissue disorders; R91.8 Other nonspecific abnormal finding of lung field; Z72.0 Tobacco use
CPT/HCPCS: 36415; 71260; 82565; 84520

== ENCOUNTER → 2019-01-29 | Outpatient (CLI) | payer MEDICARE, OTHER ==
[~2019-01-29] MED LIST changes: +ALBU0.63 IH; +ALBU18HF2 INH; +ALBU2.5V4 NEB; +ASPI-983 PO; +ATOR40TA70 PO; +ATOR80TA76 PO; +CETI10TA17 PO; +CLOP75TA28 PO; +FLUT1BLS3 IH; +FURO-124 PO; -IOHEXOL 350 MG/ML 100 ML (OMNIPAQUE 350) VIAL IV ONE; +LISI-556 PO; +MELO-170 PO; +MELO7.5T46 PO; +METO-370 PO; +METO-387 PO; +MONT10TA24 PO; -NS 100 ML (IVPB) BAG IV ONE; +POTA10TA10 PO; -RECEIVED CONTRAST (Hold Metformin) IV SCH; +RT-ALBUINH IH
== END ==
LOC: CARD 13:13
PROVIDERS: ATTEND Internal Medicine Interventional Cardiology
DX: I34.0 Nonrheumatic mitral (valve) insufficiency (principal); I25.10 Atherosclerotic heart disease of native coronary artery without angina pectoris; R06.00 Dyspnea, unspecified
CPT/HCPCS: 93306

== ENCOUNTER → 2019-02-11 | Outpatient (CLI) | payer MEDICARE, OTHER ==
[~2019-02-11] VITALS: Ht 185.4 cm; Wt 85.3 kg
[~2019-02-11] MED LIST changes: +CATHETER FLUSH 10 ML SYR IV PRN; +REGADENOSON 0.4 MG/5 ML SYR (LEXISCAN) IV ONE
[2019-02-11 09:09] VITALS: BP 147/77
--- NOTE | 2019-02-11 11:14 | Cardiology Stress Test Report ---
Stress Test Report Type of NM Stress Test: Test Type: LEXISCAN 0.4MG/5ML Date of Procedure/Referring: Date of Procedure: February 11, 2019 PCP Irlanda Colon MD Admitting Physician Jacob Machado Indications: Shortness of breath, CAD Baseline Heart Rate: 90 Baseline Blood Pressure: Blood Pressure Systolic: 147 Blood Pressure Diastolic: 77 Baseline EKG: Baseline EKG: sinus rhythm with few PVCs Summary & Conclusion: Summary: The patient was brought to the stress lab after informed consent was taken. Stress test was performed according to the Lexiscan protocol. 0.4 mg of IV Lexiscan was given. Low-grade exercise was performed. Baseline EKG showed sinus rhythm at 90 BPM. Initial blood pressure was 140/83 mmHg. Maximum heart rate was 99 bpm and blood pressure 154/86 mmHg. Patient did not have any chest pain, arrhythmias or ST segment changes during the stress test. 10.40 mCi of Myoview were given for rest imaging and 32.4 mCi of Myoview given for stress imaging. Transient ischemic dilatation score 1.06, EF 34 percent. Normal wall motion. Normal myocardial perfusion imaging during rest and stress. Conclusion: Pharmacological stress test was negative for ischemia. Decreased LV systolic function. Normal myocardial perfusion imaging during rest and stress. Irlanda COLON MD February 11, 2019 11:14 am
== END ==
LOC: CARD 08:10
PROVIDERS: ATTEND Internal Medicine Interventional Cardiology
DX: I25.10 Atherosclerotic heart disease of native coronary artery without angina pectoris (principal); R06.00 Dyspnea, unspecified; I34.0 Nonrheumatic mitral (valve) insufficiency
CPT/HCPCS: 78452; 93017

== ENCOUNTER → 2019-02-16 | Outpatient (CLI) | payer MEDICARE, OTHER ==
[~2019-02-16] MED LIST changes: -CATHETER FLUSH 10 ML SYR IV PRN; -REGADENOSON 0.4 MG/5 ML SYR (LEXISCAN) IV ONE
--- NOTE | 2019-02-16 10:11 | Diagnostic Imaging Report ---
PROCEDURE: CT chest without contrast. TECHNIQUE: Multiple contiguous axial images were obtained through the chest without the use of intravenous contrast. Auto Exposure Controls were utilized during the CT exam to meet ALARA standards for radiation dose reduction. INDICATION: Followup pulmonary nodule. COMPARISON: CT chest of 11/17/2018 FINDINGS: Lungs and airway: No endoluminal nodule within the trachea. The left apical ovoid nodule has not substantially changed in size measuring 2.1 x 1.1 cm (previously 2.2 x 1.3 cm). The thin spiculations extending from the margin of the nodule are unchanged. No new pulmonary nodule or mass. No consolidation. Pleura: No pleural effusion or pneumothorax. Heart and mediastinum: Visualized thyroid is normal. No supraclavicular or axillary lymphadenopathy. No mediastinal, discrete hilar or juxtaphrenic lymphadenopathy. Heart is normal in size without pericardial effusion. Coronary artery calcifications and aortic annulus calcifications are unchanged. Normal caliber thoracic aorta. Upper abdomen: No concerning abnormality in the upper abdomen. Musculoskeletal: No lytic or blastic skeletal lesions. IMPRESSION: 1. Stable to slight decrease in size of left apical pulmonary nodule which was previously biopsied. Please see pathology report from the needle biopsy of 08/05/2018 for details. 2. No new pulmonary nodule, mass or intrathoracic lymphadenopathy. Dictated by: Dictated on workstation # [id number]
== END ==
LOC: RAD 08:20
PROVIDERS: ATTEND Nurse Practitioner Family
DX: J44.9 Chronic obstructive pulmonary disease, unspecified (principal); J30.2 Other seasonal allergic rhinitis; M79.89 Other specified soft tissue disorders; R91.1 Solitary pulmonary nodule; Z72.0 Tobacco use
CPT/HCPCS: 71250

== ENCOUNTER → 2019-08-02 | Outpatient (CLI) | payer MEDICARE, OTHER ==
[~2019-08-02] MED LIST changes: +CATHETER FLUSH 10 ML SYR IV PRN; +HOLD METFORMIN - RECEIVED CONTRAST 20 ML VIAL IV SCH; +IOHEXOL 350 MG/ML 100 ML (OMNIPAQUE 350) VIAL IV ONE; +NS 100 ML (IVPB) BAG IV ONE; +RT-ALBUTEROL SULF 2.5 MG/3 ML PRE-MIX VIAL INH ONE
[2019-08-02 14:27] LABS: BUN/CREATININE RATIO 15; CREATININE SERUM 0.99 MG/DL (0.60-1.30); GFR ESTIMATED > 60
--- NOTE | 2019-08-02 16:26 | Diagnostic Imaging Report ---
PROCEDURE: CT chest with contrast only. TECHNIQUE: Multiple contiguous axial images were obtained through the chest after administration of intravenous contrast. Auto Exposure Controls were utilized during the CT exam to meet ALARA standards for radiation dose reduction. INDICATION: Shortness of breath and difficulty breathing. COMPARISON: 02/16/2019. FINDINGS: Note is again made of a noncalcified nodule in the left lung apex measuring approximately 1 cm. This is unchanged when compared to the prior examination. By history, this has been previously biopsied. There is centrilobular emphysematous disease. There are no other discrete pulmonary nodules, masses, or infiltrates. There is no pleural or pericardial fluid. There is no pneumothorax. There is no pathologically enlarged adenopathy in the chest. There are coronary artery calcifications. There is a cyst in the left kidney. There appears to be cholelithiasis. IMPRESSION: Stable 1 cm pulmonary nodule in the left lung apex. Centrilobular emphysematous disease. Left renal cyst. Cholelithiasis. Dictated by: Dictated on workstation # [id number]
== END ==
LOC: RT 13:58
PROVIDERS: ATTEND Nurse Practitioner Family
DX: J43.2 Centrilobular emphysema (principal); N28.1 Cyst of kidney, acquired; K80.20 Calculus of gallbladder without cholecystitis without obstruction; J30.2 Other seasonal allergic rhinitis; R91.8 Other nonspecific abnormal finding of lung field; Z72.0 Tobacco use; Z98.890 Other specified postprocedural states
CPT/HCPCS: 36415; 71260; 82565; 84520; 94060; 94726; 94729

== ENCOUNTER → 2020-05-08 | Outpatient (CLI) | payer MEDICARE, OTHER ==
[~2020-05-08] MED LIST changes: -CATHETER FLUSH 10 ML SYR IV PRN; -HOLD METFORMIN - RECEIVED CONTRAST 20 ML VIAL IV SCH; -IOHEXOL 350 MG/ML 100 ML (OMNIPAQUE 350) VIAL IV ONE; -METO-370 PO; -METO-387 PO; +METO50TA7 PO; -MONT10TA24 PO; +MONT10TA26 PO; +MTP25TSR PO; -NS 100 ML (IVPB) BAG IV ONE; -RT-ALBUTEROL SULF 2.5 MG/3 ML PRE-MIX VIAL INH ONE
== END ==
LOC: CARD 11:37
PROVIDERS: ATTEND Internal Medicine Interventional Cardiology
DX: I25.10 Atherosclerotic heart disease of native coronary artery without angina pectoris (principal); I25.5 Ischemic cardiomyopathy; I34.0 Nonrheumatic mitral (valve) insufficiency
CPT/HCPCS: 93306

== ENCOUNTER → 2020-08-07 | Outpatient (CLI) | payer MEDICARE, OTHER ==
[~2020-08-07] MED LIST changes: +ASPI-1238 PO; -ASPI-983 PO; +FLUT1DIS26 IH; +POTA10TA36 PO; +TIOT18CA2 IH
== END ==
LOC: CARD 09:55
PROVIDERS: ATTEND Internal Medicine Interventional Cardiology
DX: I25.10 Atherosclerotic heart disease of native coronary artery without angina pectoris (principal); I25.5 Ischemic cardiomyopathy; E78.5 Hyperlipidemia, unspecified; J44.9 Chronic obstructive pulmonary disease, unspecified; I08.0 Rheumatic disorders of both mitral and aortic valves
CPT/HCPCS: 93306